=== PATIENT | male | born 1930 | race Caucasian/White ===

== ENCOUNTER → 2016-05-02 | Outpatient (CLI) | payer MEDICARE ==
[~2016-05-02] MED LIST: ASPI81TA28 PO; ATOR10TA88 PO; CHOL1000 PO; DOCU-94 PO; PRED-301 PO; PRT40 PO; SUCR1TAB PO
[2016-05-02 13:37] LABS: BASO % 0.5 %; BASO ABS # 0.03 K/uL (0-0.2); COMPLETE YES; EOS % 3.4 %; HEMATOCRIT 37.7 % (42-52); IG% 0.3 %; LYMPH % 22.2 %; LYMPH ABS # 1.38 K/uL (1.2-3.4); MEAN CELL VOLUME 82.7 fL (80-100); MEAN CORPUSCULAR HEMOGLOBIN 27.6 pg (25-34); MEAN CORPUSCULAR HGB CONC 33.4 g/dl (32-36); MEAN PLATELET VOLUME 10.5 fL (7.4-10.4); MONO % 8.7 %; NEUT % 64.9 %; PLATELET COUNT 231 K/uL (130-400); RED BLOOD COUNT 4.56 M/uL (4.7-6.1); WHITE BLOOD COUNT 6.22 K/uL (4.8-10.8)
[2016-05-02 14:02] LABS: ESTIMATED AVERAGE GLUCOSE 143 mg/dl; HA1C FLAG Normal (Normal)
[2016-05-02 14:06] LABS: ALT/SGPT 27 U/L (12-78); AST/SGOT 21 U/L (15-37); BLOOD UREA NITROGEN 12 mg/dl (7-18); BUN/CREATININE RATIO 9.9 (10-20); CALCIUM 9.5 mg/dl (8.5-10.1); CARBON DIOXIDE 28 mmol/L (21-32); CHLORIDE 108 mmol/L (98-107); GLUCOSE 103 mg/dl (70-99); POTASSIUM 3.9 mmol/L (3.5-5.1); SODIUM 144 mmol/L (136-145)
[2016-05-02 14:15] LABS: ALKALINE PHOSPHATASE 58 U/L (45-117); TOTAL IRON BINDING CAPACITY 302 mcg/dl (250-450)
== END | disposition home or self-care (01) ==
LOC: C.LABBC 10:47
PROVIDERS: ATTEND Family Medicine
DX: I25.10 Atherosclerotic heart disease of native coronary artery without angina pectoris (principal); D64.9 Anemia, unspecified; M85.80 Other specified disorders of bone density and structure, unspecified site; E55.9 Vitamin D deficiency, unspecified; E11.9 Type 2 diabetes mellitus without complications

== ENCOUNTER 2016-05-31 19:43 | Inpatient (IN) | payer MEDICARE, OTHER ==
[~2016-05-31] VITALS: Ht 172.7 cm; Wt 73.6 kg
[2016-05-31] MEDS ORDERED: SODIUM CHLORIDE 0.9% 1000ML 1,000 ML IV STA (20:00)
[2016-05-31] MEDS ORDERED: FAMOTIDINE 20MG/102 ML D5W IV STA (20:00)
[2016-05-31] MEDS ORDERED: ONDANSETRON INJ 2 MG/ML 2 ML VIAL IV STA (20:00)
[2016-05-31] MEDS ORDERED: PANTOprazole INJ 40 MG in SYRINGE 0 ML IV ONE (20:00)
[2016-05-31] MEDS ORDERED: ATOR10TA88 PO (20:15)
[2016-05-31] MEDS ORDERED: CHOL1000 PO (20:15)
[2016-05-31] MEDS ORDERED: DOCU-94 PO (20:15)
[2016-05-31] MEDS ORDERED: PRED-301 PO (20:15)
[2016-05-31] MEDS ORDERED: ASPI81TA28 PO (20:15)
--- NOTE | 2016-05-31 20:23 | EMERGENCY ROOM VISIT NOTE ---
History Report prepared by Maya: Enedelia Nixon Under the Supervision of: Dr. Mateo Padgett D.O. First contact with patient: 19:50 Chief Complaint: VOMITING Stated Complaint: VOMITING, DIZZINESS, DISCOMFORT ABDOMINAL PAIN History of Present Illness The patient is a 85 year old male who presents to the Emergency Room with complaints of persistent vomiting starting this morning. He reports that when he woke up he felt fine. Later in the day he went to the bathroom to have a bowel movement, but started to feel his mouth fill up with saliva. He vomited and felt dizzy as though he would pass out. Afterwards, he started to feel better again. Around 1730, he began to feel dizzy again. He reports that he felt dizzy and like he would pass out whenever he turned his head. He reports feeling fatigued. He vomited again and the vomit was black. Pt reports abdominal pain that feels like gas. He denies headache or dizziness while resting currently. He is on baby aspirin and prednisone. He had diverticulitis which has cleared up. He is borderline diabetic. He seldom drinks alcohol. He admits to smokeless tobacco use. Source of History: patient Onset: this morning Position: other Quality: other (vomiting) Timing: other (persistent) Associated Symptoms: + abdominal pain, + fatigue Note: Pt reports dizziness. Review of Systems See HPI for pertinent positives & negatives. A total of 10 systems reviewed and were otherwise negative. Past Medical & Surgical Medical Problems: (1) Advance care planning (2) Diverticulitis (3) Heart attack (4) PMR (polymyalgia rheumatica) Family History Non contributory secondary to age. Social History Smoking Status: Never Smoker Marital Status: Housing Status: lives with family Occupation Status: retired Current/Historical Medications Scheduled Aspirin (Aspirin Ec), 81 MG PO DAILY Atorvastatin (Lipitor), 10 MG PO HS Cholecalciferol (Vitamin D3), Unknown Dose PO DAILY Docusate Sodium (Colace), 1 CAP PO DAILY Prednisone (Prednisone), 5 MG PO DAILY Allergies Coded Allergies: No Known Allergies (Unverified , 05/31/16) Physical Exam Vital Signs Date Time Temp Pulse Resp B/P Pulse Ox O2 Delivery O2 Flow Rate FiO2 05/31/16 21:11 87 05/31/16 20:59 78 18 107/79 98 Room Air 05/31/16 19:45 36.8 84 20 104/65 94 Room Air Physical Exam GENERAL: Patient is awake, alert, and in no acute distress. Patient is resting comfortably and showing no signs of anxiety EYES: The conjunctivae are clear. The pupils are round and reactive. EARS, NOSE, MOUTH AND THROAT: The nose is without any evidence of any deformity. Mucous membranes are moist tongue is midline NECK: The neck is nontender and supple. RESPIRATORY: Normal respiratory effort is noted there is no evidence of wheezing rhonchi or rales CARDIOVASCULAR: Regular rate and rhythm noted there no murmurs rubs or gallops normal S1 normal S2 GASTROINTESTINAL: The abdomen is mildly distended, but soft. Diffuse tenderness to palpation. No guarding or rigidity. RECTAL: Black stool, strongly heme positive. MUSCULOSKELETAL/EXTREMITIES: There is no evidence of gross deformity full range of motion is noted in the hips and shoulders SKIN: There is no obvious evidence of any rash. There are no petechiae, pallor or cyanosis noted. NEUROLOGIC: Patient is awake alert and oriented x3 Medical Decision & Procedures ER Provider Diagnostic Interpretation: X-ray results as stated below per interpretation by me and the radiologist. Radiology results as stated below per my review and radiologist interpretation: SINGLE VIEW CHEST CLINICAL HISTORY: Dizziness. Generalized abdominal pain. FINDINGS: An AP, portable, upright chest radiograph is obtained. No prior studies are available for comparison at the time of dictation. The examination is degraded by portable technique and apical lordotic positioning. The heart is top normal for projection and there is atherosclerotic calcification of the thoracic aorta. The pulmonary vasculature is noncongested. Nonspecific interstitial thickening is noted. No airspace consolidation or large pleural effusion is identified. No pneumothorax is seen. The skeletal structures are osteopenic. The bony thorax is grossly intact. IMPRESSION: No acute cardiopulmonary abnormality. Electronically signed by: Brandon Bee M.D. 05/31/2016 8:34 PM Dictated Date/Time: 05/31/2016 8:[address] SCAN OF THE ABDOMEN AND PELVIS WITHOUT IV CONTRAST CLINICAL HISTORY: Vomiting. Generalized abdominal pain. Dizziness. COMPARISON STUDY: No priors. TECHNIQUE: CT scan of the abdomen and pelvis is performed from the lung bases to the proximal femora. Images are reviewed in the axial, sagittal, and coronal planes. IV contrast was not administered for this examination as per the referring clinician. Note that the examination was performed in significantly suboptimal examination without oral and IV contrast. Automated dose control exposure was utilized. CT DOSE: 311.46 mGy.cm FINDINGS: Lung bases: The heart is normal in size and without pericardial effusion. The coronary arteries are densely calcified. The lung bases are clear noting dependent atelectasis. A tiny hiatal hernia is noted. Liver: The unenhanced liver is normal in size, contour, and attenuation. There is no intrahepatic biliary ductal dilatation. Gallbladder: Unremarkable. Spleen: Normal in size and attenuation. Pancreas: The pancreas is atrophic. There our numerous parenchyma calcifications consistent with chronic pancreatitis. Adrenal glands: Unremarkable. Kidneys: The unenhanced kidneys are atrophic and without hydronephrosis. There is a 6 mm nonobstructing calculus in the lower pole of the right kidney. No left renal calculi are identified. There is no evidence of contour deforming renal mass lesion. Abdominal vasculature: There is advanced atherosclerotic calcification and ectasia of the abdominal aorta. Bowel: The small bowel and colon are normal in course and caliber. There is mild colonic diverticulosis without CT evidence of acute diverticulitis. The appendix is not identified and reported surgically absent. Peritoneum: There is no intraperitoneal free air or abdominal ascites. Lymphadenopathy: None. Pelvic viscera: The the prostate gland is diminutive versus surgically absent. The bladder is normal as visualized. Skeletal structures: The skeletal structures are osteopenic. There is moderate lumbosacral spondylosis as well as mild scoliosis. A posterior discussed by complex at L4-L5 contributes to acquired compromise of the central canal. No lytic or blastic lesions are seen. IMPRESSION: 1. Significantly suboptimal examination without oral and IV contrast. 2. There are no acute infectious or inflammatory findings in the abdomen or pelvis. 3. Nonobstructing right renal calculus. 4. Mild colonic diverticulosis without CT evidence of acute diverticulitis. 5. Findings are consistent with chronic pancreatitis. 6. Additional changes as above. Electronically signed by: Brandon Bee M.D. 05/31/2016 8:53 PM Dictated Date/Time: 05/31/2016 8:48 PM Laboratory Results Test 05/31/16 20:13 05/31/16 20:26 Prothrombin Time 10.9 SECONDS (9.0-12.0) Prothromb Time International Ratio 1.0 (0.9-1.1) Activated Partial Thromboplast Time 20.6 SECONDS (21.0-31.0) Partial Thromboplastin Ratio 0.8 Total Bilirubin 0.9 mg/dl (0.2-1) Direct Bilirubin 0.2 mg/dl (0-0.2) Aspartate Amino Transf (AST/SGOT) 23 U/L (15-37) Alanine Aminotransferase (ALT/SGPT) 29 U/L (12-78) Alkaline Phosphatase 49 U/L (45-117) Total Creatine Kinase 56 U/L (39-308) Creatine Kinase MB < 0.5 ng/ml (0.5-3.6) Creatine Kinase MB Ratio (0-3.0) Troponin I < 0.015 ng/ml (0-0.045) Total Protein 6.5 gm/dl (6.4-8.2) Albumin 3.3 gm/dl (3.4-5.0) Lipase 101 U/L (73-393) Bedside Hemoglobin 11.2 g/dl (14.0-18.0) Bedside Hematocrit 33 % (42-52) Bedside Sodium 141 mEq/L (135-144) Bedside Potassium 4.5 mEq/L (3.3-5.0) Bedside Chloride 105 mEq/L (101-112) Bedside Total CO2 24 mEq/l (24-31) Bedside Blood Urea Nitrogen 29 mg/dl (7-18) Bedside Creatinine 1.1 mg/dl (0.6-1.3) Bedside Glucose (other) 155 mg/dl (70-99) Bedside Ionized Calcium (Carly) 1.28 mmol/l (1.12-1.32) Laboratory results per my review. Medications Administered Medications (Trade) Dose Ordered Sig/Shiv Route Start Time Stop Time Status Last Admin Dose Admin Sodium Chloride (Nss 1000ml) 1,000 ml @ 999 mls/hr Q1H1M STAT IV 05/31/16 20:00 05/31/16 21:00 DC 05/31/16 20:00 999 MLS/HR Ondansetron HCl 4 mg 4 mg NOW STAT IV 05/31/16 20:00 05/31/16 20:02 DC 05/31/16 20:54 4 MG Pantoprazole Sodium/Syringe (Protonix Inj/ Syringe) 10 ml @ 5 mls/min NOW ONCE IV 05/31/16 20:00 05/31/16 20:02 DC 05/31/16 20:54 5 MLS/MIN Famotidine (Pepcid 20mg/100 ml) 20 mg ONE STAT IV 05/31/16 20:00 05/31/16 20:02 DC 05/31/16 20:54 20 MG ECG Indication: vomiting Rate (beats per minute): 70 Rhythm: normal sinus Findings: no ectopy, other (no acute ST segment abnormalities) ED Course 1952: The patient was evaluated in room B7. A complete history and physical examination were performed. 1999: Famotidine 20 mg IV, Pantoprazole Sodium 40 mg/Syringe 10 ml @ 5 mls/min IV, Zofran Inj 4 mg IV, NSS 1000 ml @ 999 mls/hr IV. 2058: I reevaluated the patient. He is resting comfortably. I discussed results and treatment plan with him. He verbalizes agreement and understanding. The patient will be evaluated for further management and care. 2141: I discussed the patient's case with BELEM Dominguez - hospitalist. The patient will be evaluated for further management. Medical Decision Prior records/ancillary studies reviewed. Triage Nursing notes reviewed. Additional history obtained from the family. The patient's history was concerning for nausea, vomiting, diarrhea, and abdominal pain. Differential diagnosis: Etiologies such as gastroenteritis, food borne illness, infections, appendicitis , diverticulitis, inflammatory bowel disease, obstruction, GI bleed, biliary pathology, as well as others were entertained. The patient is an 85-year-old male who presented to the emergency apartment for an evaluation of nausea and vomiting. The patient had episodes of dark emesis which he thought could be consistent with blood. On rectal exam he had melena. The patient had mild hypotension and was treated with IV fluids in the emergency department. He currently takes steroids daily for chronic medical conditions. The patient was treated with Protonix as well as H2 blockers as well. I discussed the patient's laboratory radiographic studies with him and his family member. I also discussed his case with the on-call [facility] hospitalist group. They've agreed to evaluate the patient in the emergency department for further management and disposition. Consults Time Called: 2104 Consulting Physician: BELEM Dominguez - hospitalist Returned Call: 2141 I discussed the patient's case with him. The patient will be evaluated for further management. Impression Primary Impression: Upper GI bleeding Additional Impression: Nausea & vomiting Scribe Attestation The scribe's documentation has been prepared under my direction and personally reviewed by me in its entirety. I confirm that the note above accurately reflects all work, treatment, procedures, and medical decision making performed by me. Departure Information Dispostion Being Evaluated By Hospitalist Referrals Delfin Armando D.O.Int.Med. (PCP) Patient Instructions [facility] Problem Qualifiers Additional Impression: Nausea & vomiting Vomiting type: hematemesis Qualified Codes: K92.0 - Hematemesis; R11.0 - Nausea
[2016-05-31 20:24] LABS: BASO % 0.3 %; BASO ABS # 0.03 K/uL (0-0.2); COMPLETE YES; EOS % 0.9 %; IG% 0.3 %; LYMPH % 8.7 %; LYMPH ABS # 0.84 K/uL (1.2-3.4); MEAN CELL VOLUME 84.5 fL (80-100); MEAN CORPUSCULAR HEMOGLOBIN 27.8 pg (25-34); MEAN CORPUSCULAR HGB CONC 32.9 g/dl (32-36); MEAN PLATELET VOLUME 10.5 fL (7.4-10.4); MONO % 5.5 %; NEUT % 84.3 %; PLATELET COUNT 190 K/uL (130-400); RED BLOOD COUNT 4.14 M/uL (4.7-6.1)
[2016-05-31 20:35] LABS: PARTIAL THROMBOPLASTIN RATIO 0.8; PROTHROMBIN TIME (PATIENT) 10.9 SECONDS (9.0-12.0)
--- NOTE | 2016-05-31 20:35 | DIAGNOSTIC IMAGING REPORT ---
SINGLE VIEW CHEST CLINICAL HISTORY: Dizziness. Generalized abdominal pain. FINDINGS: An AP, portable, upright chest radiograph is obtained. No prior studies are available for comparison at the time of dictation. The examination is degraded by portable technique and apical lordotic positioning. The heart is top normal for projection and there is atherosclerotic calcification of the thoracic aorta. The pulmonary vasculature is noncongested. Nonspecific interstitial thickening is noted. No airspace consolidation or large pleural effusion is identified. No pneumothorax is seen. The skeletal structures are osteopenic. The bony thorax is grossly intact. IMPRESSION: No acute cardiopulmonary abnormality. Electronically signed by: Brandon Bee M.D. 05/31/2016 8:34 PM Dictated Date/Time: 05/31/2016 8:33 PM
[2016-05-31 20:40] LABS: ISTAT CREATININE 1.1 mg/dl (0.6-1.3); ISTAT HEMOGLOBIN 11.2 g/dl (14.0-18.0); ISTAT IONIZED CALCIUM 1.28 mmol/l (1.12-1.32)
[2016-05-31 20:42] LABS: ALT/SGPT 29 U/L (12-78); BLOOD UREA NITROGEN 31 mg/dl (7-18); BUN/CREATININE RATIO 25.5 (10-20); CALCIUM 9.6 mg/dl (8.5-10.1); CARBON DIOXIDE 26 mmol/L (21-32); CHLORIDE 107 mmol/L (98-107); GLUCOSE 153 mg/dl (70-99); POTASSIUM 4.5 mmol/L (3.5-5.1); SODIUM 143 mmol/L (136-145)
[2016-05-31 20:47] LABS: ALKALINE PHOSPHATASE 49 U/L (45-117); AST/SGOT 23 U/L (15-37)
--- NOTE | 2016-05-31 20:54 | DIAGNOSTIC IMAGING REPORT ---
CT SCAN OF THE ABDOMEN AND PELVIS WITHOUT IV CONTRAST CLINICAL HISTORY: Vomiting. Generalized abdominal pain. Dizziness. COMPARISON STUDY: No priors. TECHNIQUE: CT scan of the abdomen and pelvis is performed from the lung bases to the proximal femora. Images are reviewed in the axial, sagittal, and coronal planes. IV contrast was not administered for this examination as per the referring clinician. Note that the examination was performed in significantly suboptimal examination without oral and IV contrast. Automated dose control exposure was utilized. CT DOSE: 311.46 mGy.cm FINDINGS: Lung bases: The heart is normal in size and without pericardial effusion. The coronary arteries are densely calcified. The lung bases are clear noting dependent atelectasis. A tiny hiatal hernia is noted. Liver: The unenhanced liver is normal in size, contour, and attenuation. There is no intrahepatic biliary ductal dilatation. Gallbladder: Unremarkable. Spleen: Normal in size and attenuation. Pancreas: The pancreas is atrophic. There our numerous parenchyma calcifications consistent with chronic pancreatitis. Adrenal glands: Unremarkable. Kidneys: The unenhanced kidneys are atrophic and without hydronephrosis. There is a 6 mm nonobstructing calculus in the lower pole of the right kidney. No left renal calculi are identified. There is no evidence of contour deforming renal mass lesion. Abdominal vasculature: There is advanced atherosclerotic calcification and ectasia of the abdominal aorta. Bowel: The small bowel and colon are normal in course and caliber. There is mild colonic diverticulosis without CT evidence of acute diverticulitis. The appendix is not identified and reported surgically absent. Peritoneum: There is no intraperitoneal free air or abdominal ascites. Lymphadenopathy: None. Pelvic viscera: The the prostate gland is diminutive versus surgically absent. The bladder is normal as visualized. Skeletal structures: The skeletal structures are osteopenic. There is moderate lumbosacral spondylosis as well as mild scoliosis. A posterior discussed by complex at L4-L5 contributes to acquired compromise of the central canal. No lytic or blastic lesions are seen. IMPRESSION: 1. Significantly suboptimal examination without oral and IV contrast. 2. There are no acute infectious or inflammatory findings in the abdomen or pelvis. 3. Nonobstructing right renal calculus. 4. Mild colonic diverticulosis without CT evidence of acute diverticulitis. 5. Findings are consistent with chronic pancreatitis. 6. Additional changes as above. Electronically signed by: Brandon Bee M.D. 05/31/2016 8:53 PM Dictated Date/Time: 05/31/2016 8:48 PM
--- NOTE | 2016-05-31 22:22 | History and Physical ---
History & Physical Date & Time of Service: May 31, 2016 at 22:22 Chief Complaint: Vomiting, Dizziness, Discomfort Abdominal Pain Primary Care Physician: Delfin Armando D.O.Int.Med. History of Present Illness Source: patient, family The patient is an 85-year-old male who presents to the emergency department with persistent nausea and vomiting that began the morning of admission. He initially felt well when he woke up, but when he went to the bathroom, he felt lightheaded and dizzy like he was going to pass out. He then returned more toward normal, but around 1730 he began to feel dizzy again, fatigued, vomited black vomitus this time, and thus presents to the emergency department for assessment. At this point in time, as long as he stays still, he has no complaints. He has not had any recent travel, any sick exposures, is not taking any new medications. He is on baby aspirin and prednisone daily. Past Medical/Surgical History Medical Problems: (1) Diverticulitis Status: Resolved (2) Heart attack Status: Chronic (3) PMR (polymyalgia rheumatica) Status: Chronic Social History Smoking Status: Never Smoker Smokeless Tobacco Use: No Alcohol Use: none Drug Use: cocaine Marital Status: Housing status: lives with family Occupational Status: retired Multi-Drug Resistant Organisms History of MDRO: No Allergies Coded Allergies: No Known Allergies (Unverified , 05/31/16) Home Medications Scheduled Aspirin (Aspirin Ec), 81 MG PO DAILY Atorvastatin (Lipitor), 10 MG PO HS Cholecalciferol (Vitamin D3), Unknown Dose PO DAILY Docusate Sodium (Colace), 1 CAP PO DAILY Prednisone (Prednisone), 5 MG PO DAILY Review of Systems The patient denies chest pain, palpitations, shortness of breath, cough, lower extremity swelling, vision change, hearing change, sore throat, fevers, chills, sweats, pelvic pain, blood in urine or stool, dysuria, urinary frequency or urgency, headache, memory loss, rash, abnormal bruising imbalance, focal weakness, numbness or tingling in arms or legs, arthralgias or myalgias, back or neck pain, night sweats, or allergy symptoms. The review of systems is otherwise negative other than for that already noted above, and at least 10 systems have been reviewed. Physical Exam Vital Signs Date Time Temp Pulse Resp B/P Pulse Ox O2 Delivery O2 Flow Rate FiO2 05/31/16 21:11 87 05/31/16 20:59 78 18 107/79 98 Room Air 05/31/16 19:45 36.8 84 20 104/65 94 Room Air The patient is awake, well-developed and adequately nourished, alert and oriented 3, normocephalic and atraumatic, lying in bed and in no acute distress. HEENT--PERRL, EOMI, mucous membranes and oropharynx dry. Neck--supple, no JVD or bruits, thyroid normal, trachea midline, no adenopathy. Heart--normal S1 and S2, no extra beats, no murmurs, rubs or gallops. Lungs--clear bilaterally with good air movement, no respiratory distress, no accessory muscle use. Abdomen--normal bowel sounds and soft, mild epigastric tenderness, nondistended , no hernias or masses, no organomegaly. Extremities--no cyanosis, clubbing or edema. There are good distal pulses b/l. Dermatologic--normal skin turgor, normal color, warm and dry, no abnormal lymph nodes, no rash. Neurologic--cranial nerves II through XII grossly intact, motor and sensory examination normal. Rheumatologic--normal range of motion, nontender, muscles and joints for age. Psychiatric--normal affect. Diagnostics Laboratory Results Results Past 24 Hours Test 05/31/16 20:13 05/31/16 20:26 Range/Units White Blood Count 9.70 4.8-10.8 K/uL Red Blood Count 4.14 4.7-6.1 M/uL Hemoglobin 11.5 14.0-18.0 g/dL Hematocrit 35.0 42-52 % Mean Corpuscular Volume 84.5 80-100 fL Mean Corpuscular Hemoglobin 27.8 25-34 pg Mean Corpuscular Hemoglobin Concent 32.9 32-36 g/dl Platelet Count 190 130-400 K/uL Mean Platelet Volume 10.5 7.4-10.4 fL Neutrophils (%) (Auto) 84.3 % Lymphocytes (%) (Auto) 8.7 % Monocytes (%) (Auto) 5.5 % Eosinophils (%) (Auto) 0.9 % Basophils (%) (Auto) 0.3 % Neutrophils # (Auto) 8.18 1.4-6.5 K/uL Lymphocytes # (Auto) 0.84 1.2-3.4 K/uL Monocytes # (Auto) 0.53 0.11-0.59 K/uL Eosinophils # (Auto) 0.09 0-0.5 K/uL Basophils # (Auto) 0.03 0-0.2 K/uL RDW Standard Deviation 46.8 36.4-46.3 fL RDW Coefficient of Variation 15.1 11.5-14.5 % Immature Granulocyte % (Auto) 0.3 % Immature Granulocyte # (Auto) 0.03 0.00-0.02 K/uL Prothrombin Time 10.9 9.0-12.0 SECONDS Prothromb Time International Ratio 1.0 0.9-1.1 Activated Partial Thromboplast Time 20.6 21.0-31.0 SECONDS Partial Thromboplastin Ratio 0.8 Sodium Level 143 136-145 mmol/L Potassium Level 4.5 3.5-5.1 mmol/L Chloride Level 107 98-107 mmol/L Carbon Dioxide Level 26 21-32 mmol/L Anion Gap 10.0 17.0 16-25 mmol/L Blood Urea Nitrogen 31 7-18 mg/dl Creatinine 1.20 0.60-1.40 mg/dl Est Creatinine Clear Calc Drug Dose 43.5 ml/min Estimated GFR () 63.5 Estimated GFR (Non- 54.8 BUN/Creatinine Ratio 25.5 10-20 Random Glucose 153 70-99 mg/dl Calcium Level 9.6 8.5-10.1 mg/dl Total Bilirubin 0.9 0.2-1 mg/dl Direct Bilirubin 0.2 0-0.2 mg/dl Aspartate Amino Transf (AST/SGOT) 23 15-37 U/L Alanine Aminotransferase (ALT/SGPT) 29 12-78 U/L Alkaline Phosphatase 49 45-117 U/L Total Creatine Kinase 56 39-308 U/L Creatine Kinase MB < 0.5 0.5-3.6 ng/ml Creatine Kinase MB Ratio 0-3.0 Troponin I < 0.015 0-0.045 ng/ml Total Protein 6.5 6.4-8.2 gm/dl Albumin 3.3 3.4-5.0 gm/dl Lipase 101 73-393 U/L Bedside Hemoglobin 11.2 14.0-18.0 g/dl Bedside Hematocrit 33 42-52 % Bedside Sodium 141 135-144 mEq/L Bedside Potassium 4.5 3.3-5.0 mEq/L Bedside Chloride 105 101-112 mEq/L Bedside Total CO2 24 24-31 mEq/l Bedside Blood Urea Nitrogen 29 7-18 mg/dl Bedside Creatinine 1.1 0.6-1.3 mg/dl Bedside Glucose (other) 155 70-99 mg/dl Bedside Ionized Calcium (Carly) 1.28 1.12-1.32 mmol/l Diagnostic Radiology CLINICAL HISTORY: Dizziness. Generalized abdominal pain. FINDINGS: An AP, portable, upright chest radiograph is obtained. No prior studies are available for comparison at the time of dictation. The examination is degraded by portable technique and apical lordotic positioning. The heart is top normal for projection and there is atherosclerotic calcification of the thoracic aorta. The pulmonary vasculature is noncongested. Nonspecific interstitial thickening is noted. No airspace consolidation or large pleural effusion is identified. No pneumothorax is seen. The skeletal structures are osteopenic. The bony thorax is grossly intact. IMPRESSION: No acute cardiopulmonary abnormality. Electronically signed by: Brandon Bee M.D. 05/31/2016 8:34 PM Dictated Date/Time: 05/31/2016 8:33 PM The status of this report is Signed. Draft = Not yet reviewed or approved by Radiologist. Signed = Reviewed and [~ rep ct add3]] CT SCAN OF THE ABDOMEN AND PELVIS WITHOUT IV CONTRAST CLINICAL HISTORY: Vomiting. Generalized abdominal pain. Dizziness. COMPARISON STUDY: No priors. TECHNIQUE: CT scan of the abdomen and pelvis is performed from the lung bases to the proximal femora. Images are reviewed in the axial, sagittal, and coronal planes. IV contrast was not administered for this examination as per the referring clinician. Note that the examination was performed in significantly suboptimal examination without oral and IV contrast. Automated dose control exposure was utilized. CT DOSE: 311.46 mGy.cm FINDINGS: Lung bases: The heart is normal in size and without pericardial effusion. The coronary arteries are densely calcified. The lung bases are clear noting dependent atelectasis. A tiny hiatal hernia is noted. Liver: The unenhanced liver is normal in size, contour, and attenuation. There is no intrahepatic biliary ductal dilatation. Gallbladder: Unremarkable. Spleen: Normal in size and attenuation. Pancreas: The pancreas is atrophic. There our numerous parenchyma calcifications consistent with chronic pancreatitis. Adrenal glands: Unremarkable. Kidneys: The unenhanced kidneys are atrophic and without hydronephrosis. There is a 6 mm nonobstructing calculus in the lower pole of the right kidney. No left renal calculi are identified. There is no evidence of contour deforming renal mass lesion. Abdominal vasculature: There is advanced atherosclerotic calcification and ectasia of the abdominal aorta. Bowel: The small bowel and colon are normal in course and caliber. There is mild colonic diverticulosis without CT evidence of acute diverticulitis. The appendix is not identified and reported surgically absent. Peritoneum: There is no intraperitoneal free air or abdominal ascites. Lymphadenopathy: None. Pelvic viscera: The the prostate gland is diminutive versus surgically absent. The bladder is normal as visualized. Skeletal structures: The skeletal structures are osteopenic. There is moderate lumbosacral spondylosis as well as mild scoliosis. A posterior discussed by complex at L4-L5 contributes to acquired compromise of the central canal. No lytic or blastic lesions are seen. IMPRESSION: 1. Significantly suboptimal examination without oral and IV contrast. 2. There are no acute infectious or inflammatory findings in the abdomen or pelvis. 3. Nonobstructing right renal calculus. 4. Mild colonic diverticulosis without CT evidence of acute diverticulitis. 5. Findings are consistent with chronic pancreatitis. 6. Additional changes as above. EKG EKG shows normal sinus rhythm at 70 bpm, there are no acute ST-T changes Impression Assessment and Plan Upper GI bleed/near syncope--the patient will be admitted to the telemetry unit , for serial cardiac enzymes, cardiac rhythm monitoring and a 2-D echocardiogram with Dopplers. He'll be made nothing by mouth. Start Protonix bolus followed by drip. Check H&H every 6 hours for the next 48 hours. Consult gastroenterology for possible EGD. We'll hold aspirin 81 mg by mouth daily and prednisone 5 mg by mouth daily. Place on normal saline with potassium chloride 20 mEq at 100 ML's per hour, and Zofran 4 mg IV every 6 hours when necessary. Hypercholesterolemia--hold atorvastatin 10 mg by mouth at bedtime. Polymyalgia rheumatica--he's been on prednisone 5 mg by mouth daily. He'll need to be on stress dose hydrocortisone IV. Hyperglycemia--place on Accu-Cheks 4 times a day with NovoLog coverage. Level of Care Telemetry Advanced Directives Existing Advance Directive: No Existing Living Will: No Existing Power of Medical Device Assembler: No Resuscitation Status FULL RESUSCITATION VTE Prophylaxis VTE Risk Assessment Done? Y/N: Yes Risk Level: Moderate Given or contraindicated: SCD's Social Service Consult None Apply
[2016-05-31] MEDS ORDERED: ONDANSETRON INJ 2 MG/ML 2 ML VIAL IV PRN (22:45)
[2016-05-31] MEDS ORDERED: ACETAMINOPHEN 325 MG TAB PO PRN (22:45)
[2016-05-31] MEDS ORDERED: PANTOprazole INJ 40 MG in SYRINGE 0 ML IV STA (22:52)
[2016-05-31 23:10] LABS: URINE APPEARANCE CLEAR (CLEAR); URINE BILIRUBIN NEG (NEG); URINE COLOR YELLOW; URINE NITRITE NEG (NEG); URINE PH 5.5 (4.5-7.5); UROBILINOGEN NEG (NEG)
[2016-05-31 23:18] LABS: MANUAL MICROSCOPIC REQUIRED? NO; REVIEW REQ? NO
[2016-05-31] MEDS: PANTOprazole INJ 40 MG in DEXTROSE 5% 100ML IV SCH (23:49)
[2016-05-31 23:50] VITALS: BP 111/67; PULSE 67; TEMP 36.5; O2SAT 98; Ht 172.7 cm; Wt 73.6 kg
[2016-06-01] MEDS: NSS + 20MEQ KCL 1000ML 1,000 ML IV SCH ×2 (00:02→12:30)
[2016-06-01] MEDS: PANTOprazole INJ 40 MG in DEXTROSE 5% 100ML IV SCH ×4 (04:09→19:31)
[2016-06-01] MEDS ORDERED: DEXTROSE 50% 50 ML SYR IV PRN (04:30)
[2016-06-01] MEDS ORDERED: GLUCOSE 40% GEL 15 GM TUBE PO PRN (04:30)
[2016-06-01] MEDS ORDERED: GLUCAGON FOR INJ 1 MG VIAL SQ PRN (04:30)
[2016-06-01] MEDS ORDERED: GLUCOSE 10 TABS/TUBE PO PRN (04:30)
[2016-06-01 04:49] LABS: BASO % 0.4 %; BASO ABS # 0.03 K/uL (0-0.2); COMPLETE YES; EOS % 2.5 %; IG% 0.1 %; LYMPH % 15.6 %; LYMPH ABS # 1.13 K/uL (1.2-3.4); MEAN CELL VOLUME 83.1 fL (80-100); MEAN CORPUSCULAR HEMOGLOBIN 27.2 pg (25-34); MEAN CORPUSCULAR HGB CONC 32.8 g/dl (32-36); MEAN PLATELET VOLUME 9.8 fL (7.4-10.4); MONO % 9.1 %; NEUT % 72.3 %; PLATELET COUNT 137 K/uL (130-400); RED BLOOD COUNT 3.49 M/uL (4.7-6.1); WHITE BLOOD COUNT 7.24 K/uL (4.8-10.8)
[2016-06-01] MEDS: HYDROCORTISONE IV 100 MG in SYRINGE 0 ML IV SCH ×3 (04:50→20:37)
[2016-06-01 05:08] LABS: BUN/CREATININE RATIO 33.5 (10-20); CALCIUM 8.4 mg/dl (8.5-10.1); MAGNESIUM 2.2 mg/dl (1.8-2.4); POTASSIUM 4.9 mmol/L (3.5-5.1)
[2016-06-01 07:21] VITALS: BP 123/64; PULSE 67; TEMP 36.8; O2SAT 98
[2016-06-01] MEDS: INSULIN ASPART 100 UNITS/ML 3 ML PEN SC SCH ×4 (08:58→20:38)
--- NOTE | 2016-06-01 09:02 | Hospitalist Progress Note ---
Hospitalist Progress Note Date of Service Jun 01, 2016. Subjective Pt evaluation today including: conversation w/ patient, chart review Patient with no complaints no more emesis. No abdominal pain All Other Systems: Reviewed and Negative Medications Medications (Trade) Dose Ordered Sig/Shiv Route Start Time Stop Time Status Last Admin Dose Admin Sodium Chloride (Nss 1000ml) 1,000 ml @ 999 mls/hr Q1H1M STAT IV 05/31/16 20:00 05/31/16 21:00 DC 05/31/16 20:00 999 MLS/HR Ondansetron HCl 4 mg 4 mg NOW STAT IV 05/31/16 20:00 05/31/16 20:02 DC 05/31/16 20:54 4 MG Pantoprazole Sodium/Syringe (Protonix Inj/ Syringe) 10 ml @ 5 mls/min NOW ONCE IV 05/31/16 20:00 05/31/16 20:02 DC 05/31/16 20:54 5 MLS/MIN Famotidine 20 mg 20 mg ONE STAT IV 05/31/16 20:00 05/31/16 20:02 DC 05/31/16 20:54 20 MG Potassium Chloride/Sodium Chloride 1,000 ml @ 80 mls/hr [id number] IV 05/31/16 23:59 06/30/16 23:58 06/01/16 00:02 80 MLS/HR Pantoprazole Sodium 40 mg/ Syringe 10 ml @ 5 mls/min NOW STAT IV 05/31/16 22:52 05/31/16 22:53 DC 05/31/16 23:48 5 MLS/MIN Pantoprazole Sodium 40 mg/ Dextrose 100 ml @ 20 mls/hr Q5H IV 05/31/16 23:15 06/30/16 23:14 06/01/16 04:09 20 MLS/HR Hydrocortisone Sodium Succinate/ Syringe (Solu-Cortef IV/ Syringe) 2 ml @ 4 mls/min Q8H IV 06/01/16 04:30 07/01/16 04:29 06/01/16 04:50 4 MLS/MIN Objective Vital Signs Date Time Temp Pulse Resp B/P Pulse Ox O2 Delivery O2 Flow Rate FiO2 06/01/16 07:21 36.8 67 18 123/64 98 Room Air 06/01/16 04:00 Room Air 05/31/16 23:50 36.5 67 16 111/67 98 Room Air 05/31/16 23:02 65 18 103/52 96 Room Air 05/31/16 21:11 87 05/31/16 20:59 78 18 107/79 98 Room Air 05/31/16 19:45 36.8 84 20 104/65 94 Room Air Physical Exam General Appearance: WD/WN Eyes: normal inspection, sclerae normal Neck: supple Respiratory/Chest: lungs clear Cardiovascular: regular rate, rhythm Abdomen: normal bowel sounds Extremities: normal range of motion Neurologic/Psychiatric: alert, normal mood/affect Laboratory Results Last 24 Hours Test 05/31/16 20:13 05/31/16 20:26 05/31/16 22:33 05/31/16 23:00 White Blood Count 9.70 K/uL Red Blood Count 4.14 M/uL Hemoglobin 11.5 g/dL 9.9 g/dL Hematocrit 35.0 % 30.0 % Mean Corpuscular Volume 84.5 fL Mean Corpuscular Hemoglobin 27.8 pg Mean Corpuscular Hemoglobin Concent 32.9 g/dl Platelet Count 190 K/uL Mean Platelet Volume 10.5 fL Neutrophils (%) (Auto) 84.3 % Lymphocytes (%) (Auto) 8.7 % Monocytes (%) (Auto) 5.5 % Eosinophils (%) (Auto) 0.9 % Basophils (%) (Auto) 0.3 % Neutrophils # (Auto) 8.18 K/uL Lymphocytes # (Auto) 0.84 K/uL Monocytes # (Auto) 0.53 K/uL Eosinophils # (Auto) 0.09 K/uL Basophils # (Auto) 0.03 K/uL RDW Standard Deviation 46.8 fL RDW Coefficient of Variation 15.1 % Immature Granulocyte % (Auto) 0.3 % Immature Granulocyte # (Auto) 0.03 K/uL Prothrombin Time 10.9 SECONDS Prothromb Time International Ratio 1.0 Activated Partial Thromboplast Time 20.6 SECONDS Partial Thromboplastin Ratio 0.8 Sodium Level 143 mmol/L Potassium Level 4.5 mmol/L Chloride Level 107 mmol/L Carbon Dioxide Level 26 mmol/L Anion Gap 10.0 mmol/L 17.0 mmol/L Blood Urea Nitrogen 31 mg/dl Creatinine 1.20 mg/dl Est Creatinine Clear Calc Drug Dose 43.5 ml/min Estimated GFR () 63.5 Estimated GFR (Non- 54.8 BUN/Creatinine Ratio 25.5 Random Glucose 153 mg/dl Calcium Level 9.6 mg/dl Total Bilirubin 0.9 mg/dl Direct Bilirubin 0.2 mg/dl Aspartate Amino Transf (AST/SGOT) 23 U/L Alanine Aminotransferase (ALT/SGPT) 29 U/L Alkaline Phosphatase 49 U/L Total Creatine Kinase 56 U/L Creatine Kinase MB < 0.5 ng/ml Creatine Kinase MB Ratio Troponin I < 0.015 ng/ml Total Protein 6.5 gm/dl Albumin 3.3 gm/dl Lipase 101 U/L Bedside Hemoglobin 11.2 g/dl Bedside Hematocrit 33 % Bedside Sodium 141 mEq/L Bedside Potassium 4.5 mEq/L Bedside Chloride 105 mEq/L Bedside Total CO2 24 mEq/l Bedside Blood Urea Nitrogen 29 mg/dl Bedside Creatinine 1.1 mg/dl Bedside Glucose (other) 155 mg/dl Bedside Ionized Calcium (Carly) 1.28 mmol/l Urine Color YELLOW Urine Appearance CLEAR Urine pH 5.5 Urine Specific [place] 1.020 Urine Protein NEG Urine Glucose (UA) NEG Urine Ketones TRACE Urine Occult Blood NEG Urine Nitrite NEG Urine Bilirubin NEG Urine Urobilinogen NEG Urine Leukocyte Esterase TRACE Urine WBC (Auto) 1-5 /hpf Urine RBC (Auto) 0-4 /hpf Urine Hyaline Casts (Auto) 1-5 /lpf Urine Epithelial Cells (Auto) 10-20 /lpf Urine Bacteria (Auto) NEG Test 06/01/16 04:30 White Blood Count 7.24 K/uL Red Blood Count 3.49 M/uL Hemoglobin 9.5 g/dL Hematocrit 29.0 % Mean Corpuscular Volume 83.1 fL Mean Corpuscular Hemoglobin 27.2 pg Mean Corpuscular Hemoglobin Concent 32.8 g/dl Platelet Count 137 K/uL Mean Platelet Volume 9.8 fL Neutrophils (%) (Auto) 72.3 % Lymphocytes (%) (Auto) 15.6 % Monocytes (%) (Auto) 9.1 % Eosinophils (%) (Auto) 2.5 % Basophils (%) (Auto) 0.4 % Neutrophils # (Auto) 5.23 K/uL Lymphocytes # (Auto) 1.13 K/uL Monocytes # (Auto) 0.66 K/uL Eosinophils # (Auto) 0.18 K/uL Basophils # (Auto) 0.03 K/uL RDW Standard Deviation 46.4 fL RDW Coefficient of Variation 15.3 % Immature Granulocyte % (Auto) 0.1 % Immature Granulocyte # (Auto) 0.01 K/uL Sodium Level 147 mmol/L Potassium Level 4.9 mmol/L Chloride Level 114 mmol/L Carbon Dioxide Level 30 mmol/L Anion Gap 3.0 mmol/L Blood Urea Nitrogen 33 mg/dl Creatinine 1.00 mg/dl Est Creatinine Clear Calc Drug Dose 52.2 ml/min Estimated GFR () 79.2 Estimated GFR (Non- 68.3 BUN/Creatinine Ratio 33.5 Random Glucose 98 mg/dl Calcium Level 8.4 mg/dl Magnesium Level 2.2 mg/dl Assessment and Plan (1) Upper GI bleeding Assessment & Plan: Patient with black emesis prior to admission on aspirin and prednisone....suspect ulcer versus gastritis. Will consult GI for upper Endoscopy. continue protonix and holding aspirin (2) Nausea & vomiting Assessment & Plan: resolved npo (3) PMR (polymyalgia rheumatica) Assessment & Plan: was on prednisone on stress dose steroids now. (4) Advance care planning Assessment & Plan: discussed in detail. Patient has a living will in a safe, but he does not know what he would want if his heart were to stop. I have explained that he should think about where he would draw his lines personally if he were to , or if were unable to speak because of a medical illness. He can currently provide this direction to his family and the healthcare team. When he knows the answers to the questions he should fill out a new living will and discuss this document with his primary care physician and his family.
--- NOTE | 2016-06-01 10:18 | Gastrointestinal Consultation ---
Gastrointestinal Consultation Date of Consultation: Jun 01, 2016 Attending Physician: Gera Consulting Physician: Bharat Reason for Consultation: GI bleed History of Present Illness Patient is a 85 year old male who went out to shop yesterday morning and feeling well. All of a sudden felt queasy in his belly and then threw up relatively violently, orange juice and eggs he had that morning. Later he ate some bananas, milk and sugar and then threw up again coffee grounds. [place] sweaty and light headed. No chest pain. Son brought him to the ER. No such issues in the past. Remote OH and has been on aspirin 81 mg. Past Medical/Surgical History Medical Problems: (1) Nausea & vomiting Status: Acute (2) Upper GI bleeding Status: Acute Past Medical History: (1) Diverticulitis Status: Resolved (2) Heart attack Status: Chronic (3) PMR (polymyalgia rheumatica) Status: Chronic Social History Smoking Status: Never Smoker (But snuffs 2-3 times a day) Alcohol Use: none ( except in the past when had a few beers every weekend.) Drug Use: cocaine Marital Status: Housing Status: lives with family Occupation Status: retired Allergies Coded Allergies: No Known Allergies (Unverified , 05/31/16) Current Medications Home Meds and Scripts Medications Dose Route/Sig Max Daily Dose Days Date Category Vitamin D3 (Cholecalciferol) Unknown Strength Tab Unknown Dose PO DAILY 90 05/31/16 Reported Colace (Docusate Sodium) 100 Mg Cap 1 Cap PO DAILY 30 05/31/16 Reported Aspirin Ec (Aspirin) 81 Mg Tab 81 Mg PO DAILY 05/31/16 Reported Lipitor (Atorvastatin Calcium) 10 Mg Tab 10 Mg PO HS 05/31/16 Reported Prednisone 5 Mg Tab 5 Mg PO DAILY 05/31/16 Reported Review of Systems Constitutional: No fever ENT: No trouble swallowing Cardiac: No chest pain, No palpitations Abdomen: + GI bleeding, + vomiting, No constipation, No pain Neuro: + weakness ( generalized, yesterday after throwing up) Psych: No substance abuse Physical Exam Date Time Temp Pulse Resp B/P Pulse Ox O2 Delivery O2 Flow Rate FiO2 06/01/16 08:00 Room Air 06/01/16 07:21 36.8 67 18 123/64 98 Room Air 06/01/16 04:00 Room Air 05/31/16 23:50 36.5 67 16 111/67 98 Room Air 05/31/16 23:02 65 18 103/52 96 Room Air 05/31/16 21:11 87 05/31/16 20:59 78 18 107/79 98 Room Air 05/31/16 19:45 36.8 84 20 104/65 94 Room Air General Appearance: no apparent distress Eyes: normal inspection Neck: supple, no JVD Respiratory/Chest: chest non-tender, lungs clear, normal breath sounds Cardiovascular: regular rate, rhythm, + systolic murmur Abdomen: non tender, soft, no organomegaly, no pulsatile mass Extremities: normal inspection, no pedal edema Neurologic/Psych: alert, normal mood/affect, oriented x 3 Skin: normal color, no jaundice, warm/dry, no rash Laboratory Results Last 24 Hours Test 05/31/16 20:13 05/31/16 20:26 05/31/16 22:33 05/31/16 23:00 White Blood Count 9.70 K/uL Red Blood Count 4.14 M/uL Hemoglobin 11.5 g/dL 9.9 g/dL Hematocrit 35.0 % 30.0 % Mean Corpuscular Volume 84.5 fL Mean Corpuscular Hemoglobin 27.8 pg Mean Corpuscular Hemoglobin Concent 32.9 g/dl Platelet Count 190 K/uL Mean Platelet Volume 10.5 fL Neutrophils (%) (Auto) 84.3 % Lymphocytes (%) (Auto) 8.7 % Monocytes (%) (Auto) 5.5 % Eosinophils (%) (Auto) 0.9 % Basophils (%) (Auto) 0.3 % Neutrophils # (Auto) 8.18 K/uL Lymphocytes # (Auto) 0.84 K/uL Monocytes # (Auto) 0.53 K/uL Eosinophils # (Auto) 0.09 K/uL Basophils # (Auto) 0.03 K/uL RDW Standard Deviation 46.8 fL RDW Coefficient of Variation 15.1 % Immature Granulocyte % (Auto) 0.3 % Immature Granulocyte # (Auto) 0.03 K/uL Prothrombin Time 10.9 SECONDS Prothromb Time International Ratio 1.0 Activated Partial Thromboplast Time 20.6 SECONDS Partial Thromboplastin Ratio 0.8 Sodium Level 143 mmol/L Potassium Level 4.5 mmol/L Chloride Level 107 mmol/L Carbon Dioxide Level 26 mmol/L Anion Gap 10.0 mmol/L 17.0 mmol/L Blood Urea Nitrogen 31 mg/dl Creatinine 1.20 mg/dl Est Creatinine Clear Calc Drug Dose 43.5 ml/min Estimated GFR () 63.5 Estimated GFR (Non- 54.8 BUN/Creatinine Ratio 25.5 Random Glucose 153 mg/dl Calcium Level 9.6 mg/dl Total Bilirubin 0.9 mg/dl Direct Bilirubin 0.2 mg/dl Aspartate Amino Transf (AST/SGOT) 23 U/L Alanine Aminotransferase (ALT/SGPT) 29 U/L Alkaline Phosphatase 49 U/L Total Creatine Kinase 56 U/L Creatine Kinase MB < 0.5 ng/ml Creatine Kinase MB Ratio Troponin I < 0.015 ng/ml Total Protein 6.5 gm/dl Albumin 3.3 gm/dl Lipase 101 U/L Bedside Hemoglobin 11.2 g/dl Bedside Hematocrit 33 % Bedside Sodium 141 mEq/L Bedside Potassium 4.5 mEq/L Bedside Chloride 105 mEq/L Bedside Total CO2 24 mEq/l Bedside Blood Urea Nitrogen 29 mg/dl Bedside Creatinine 1.1 mg/dl Bedside Glucose (other) 155 mg/dl Bedside Ionized Calcium (Carly) 1.28 mmol/l Urine Color YELLOW Urine Appearance CLEAR Urine pH 5.5 Urine Specific [place] 1.020 Urine Protein NEG Urine Glucose (UA) NEG Urine Ketones TRACE Urine Occult Blood NEG Urine Nitrite NEG Urine Bilirubin NEG Urine Urobilinogen NEG Urine Leukocyte Esterase TRACE Urine WBC (Auto) 1-5 /hpf Urine RBC (Auto) 0-4 /hpf Urine Hyaline Casts (Auto) 1-5 /lpf Urine Epithelial Cells (Auto) 10-20 /lpf Urine Bacteria (Auto) NEG Test 06/01/16 04:30 06/01/16 08:58 White Blood Count 7.24 K/uL Red Blood Count 3.49 M/uL Hemoglobin 9.5 g/dL Hematocrit 29.0 % Mean Corpuscular Volume 83.1 fL Mean Corpuscular Hemoglobin 27.2 pg Mean Corpuscular Hemoglobin Concent 32.8 g/dl Platelet Count 137 K/uL Mean Platelet Volume 9.8 fL Neutrophils (%) (Auto) 72.3 % Lymphocytes (%) (Auto) 15.6 % Monocytes (%) (Auto) 9.1 % Eosinophils (%) (Auto) 2.5 % Basophils (%) (Auto) 0.4 % Neutrophils # (Auto) 5.23 K/uL Lymphocytes # (Auto) 1.13 K/uL Monocytes # (Auto) 0.66 K/uL Eosinophils # (Auto) 0.18 K/uL Basophils # (Auto) 0.03 K/uL RDW Standard Deviation 46.4 fL RDW Coefficient of Variation 15.3 % Immature Granulocyte % (Auto) 0.1 % Immature Granulocyte # (Auto) 0.01 K/uL Sodium Level 147 mmol/L Potassium Level 4.9 mmol/L Chloride Level 114 mmol/L Carbon Dioxide Level 30 mmol/L Anion Gap 3.0 mmol/L Blood Urea Nitrogen 33 mg/dl Creatinine 1.00 mg/dl Est Creatinine Clear Calc Drug Dose 52.2 ml/min Estimated GFR () 79.2 Estimated GFR (Non- 68.3 BUN/Creatinine Ratio 33.5 Random Glucose 98 mg/dl Calcium Level 8.4 mg/dl Magnesium Level 2.2 mg/dl Bedside Glucose 120 mg/dl Impression 1) Patient is a 85 year old male with a self limited UGI bleed, evidenced by coffee ground emesis, high BUN abd drop in Hct. No melena. No more episodes since admission yesterday. This is likely a Cecile Dennis tear given the time course. No evidence of chronic blood loss given normal MCV. 2) Evidence of chronic pancreatitis by CT. No imaging to compare. Asymptomatic att his time. No action needed unless symptomatic Plan Agree with holding aspirin Ok to give clears and keep NPO after midnight for EGD tomorrow. After risk stratification he could the discharged with a plan made for restarting aspirin. He has had an OH in the remote past. Note and record color of stools. I have instructed the patient to check his stools also. Check Hb later today, transfuse if counts drop below 8.00 If there is evidence of more bleeding, we will scope on an emergent basis today.
[2016-06-01 11:08] LABS: HEMATOCRIT 28.8 % (42-52)
[2016-06-01 11:48] VITALS: BP 125/78; PULSE 77; TEMP 37; O2SAT 100
[2016-06-01 14:40] LABS: HEMATOCRIT 28.2 % (42-52)
[2016-06-01 15:26] VITALS: BP 150/83; PULSE 69; TEMP 36.6; O2SAT 97
[2016-06-01 16:38] LABS: HEMATOCRIT 29.6 % (42-52)
[2016-06-01 20:22] VITALS: BP 147/79; PULSE 74; TEMP 36.7; O2SAT 97
[2016-06-01 22:34] LABS: HEMATOCRIT 26.8 % (42-52)
[2016-06-01 23:02] VITALS: BP 151/81; PULSE 67; TEMP 36.5; O2SAT 95
[2016-06-02] VITALS (9 sets, daily range): BP systolic 107–148; BP diastolic 68–78; PULSE 56–79; TEMP 36.3–36.8; O2SAT 95–97
[2016-06-02] MEDS: NSS + 20MEQ KCL 1000ML 1,000 ML IV SCH ×2 (00:07→12:39)
[2016-06-02] MEDS: PANTOprazole INJ 40 MG in DEXTROSE 5% 100ML IV SCH ×5 (00:07→20:15)
[2016-06-02] MEDS: HYDROCORTISONE IV 100 MG in SYRINGE 0 ML IV SCH ×3 (04:55→20:15)
[2016-06-02 04:57] LABS: BASO % 0.1 %; BASO ABS # 0.01 K/uL (0-0.2); EOS % 0.1 %; HEMATOCRIT 26.3 % (42-52); IG% 0.2 %; LYMPH % 10.2 %; LYMPH ABS # 0.87 K/uL (1.2-3.4); MEAN CELL VOLUME 81.7 fL (80-100); MEAN CORPUSCULAR HGB CONC 33.1 g/dl (32-36); MEAN PLATELET VOLUME 9.8 fL (7.4-10.4); MONO % 5.5 %; NEUT % 83.9 %; PLATELET COUNT 133 K/uL (130-400); RED BLOOD COUNT 3.22 M/uL (4.7-6.1); WHITE BLOOD COUNT 8.57 K/uL (4.8-10.8)
[2016-06-02 05:26] LABS: COMPLETE YES; OVALOCYTES 1+
[2016-06-02 05:31] LABS: MAGNESIUM 2.2 mg/dl (1.8-2.4); POTASSIUM 4.4 mmol/L (3.5-5.1)
[2016-06-02] MEDS: INSULIN ASPART 100 UNITS/ML 3 ML PEN SC SCH ×4 (07:48→21:00)
--- NOTE | 2016-06-02 11:26 | Progress Note ---
Subjective Date of Service: Jun 02, 2016. Subjective Pt evaluation today including: conversation w/ patient, conversation w/ family , physical exam, chart review, lab review, review of studies, conversation w/ benefits consultant, review of inpatient medication list Voiding: no voiding problems No more emesis, no abdominal pain,there was some black stool tarry stool, normal stool now Problem List Medical Problems: (1) Nausea & vomiting Status: Acute (2) Upper GI bleeding Status: Acute Review of Systems Constitutional: + fatigue, No chills, No fever, No problem reported, No sweats , No weakness, No weight loss Eyes: No diplopia, No discharge, No eye pain, No redness, No worsening of vision ENT: No dental problems, No hearing loss, No nasal symptoms, No sore throat, No tinnitus, No trouble swallowing, No unusual epistaxis Respiratory: No cough, No dyspnea at rest, No dyspnea on exertion, No hemoptysis, No shortness of breath, No sputum, No wheezing Cardiac: No PND, No chest pain, No claudication, No edema, No orthopnea, No palpitations Abdomen: No constipation, No diarrhea, No nausea, No pain, No vomiting Musculoskeletal: No calf pain, No joint pain, No muscle pain, No swelling Male : No dysuria, No hematuria, No incontinence, No nocturia more than once/ night, No slowing stream, No urinary frequency Neurologic: No balance problems, No memory loss, No numbness/tingling, No paralysis, No vertigo, No weakness Psychiatric: No anhedonism, No anxiety, No depression symptoms, No insomnia, No substance abuse Heme: No abnormal bleeding/bruising, No clotting problems, No night sweats, No swollen lymph nodes Endo: No excessive thirst, No excessive urination, No fatigue Skin: No bleeding, No color change, No itch, No new/changing skin lesions, No rash Objective Vital Signs Date Time Temp Pulse Resp B/P Pulse Ox O2 Delivery O2 Flow Rate FiO2 06/02/16 08:00 95 Room Air 06/02/16 07:46 36.6 64 18 131/72 95 Room Air 06/02/16 04:45 36.8 62 18 107/68 97 06/02/16 04:00 Room Air 06/02/16 00:00 Room Air 06/01/16 23:02 36.5 67 18 151/81 95 Room Air 06/01/16 20:22 36.7 74 18 147/79 97 Room Air 06/01/16 20:00 Room Air 06/01/16 16:00 Room Air 06/01/16 15:26 36.6 69 16 150/83 97 Room Air 06/01/16 12:00 Room Air 06/01/16 11:48 37.0 77 18 125/78 100 Room Air Physical Exam General Appearance: WD/WN, no apparent distress, + pertinent finding (frail) Eyes: normal inspection, PERRL, EOMI, sclerae normal ENT: normal ENT inspection, hearing grossly normal, pharynx normal Neck: supple, no adenopathy, thyroid normal, no JVD, no carotid bruits, trachea midline Respiratory/Chest: chest non-tender, lungs clear, normal breath sounds, no respiratory distress, no accessory muscle use Cardiovascular: regular rate, rhythm, no edema, no gallop, no JVD, no murmur, + systolic murmur (3 out of 6) Abdomen: normal bowel sounds, non tender, soft, no organomegaly, no pulsatile mass Extremities: normal range of motion, non-tender, normal inspection, no pedal edema, no calf tenderness, normal capillary refill, pelvis stable 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, no motor/sensory deficits, alert, normal mood/affect, oriented x 3, + abnormal cerebellar tests Skin: normal color, warm/dry, no rash Lymphatic: no adenopathy Laboratory Results Last 24 Hours Test 06/01/16 11:39 06/01/16 14:23 06/01/16 16:29 06/01/16 16:39 Bedside Glucose 166 mg/dl 111 mg/dl Hemoglobin 9.5 g/dL 9.8 g/dL Hematocrit 28.2 % 29.6 % Test 06/01/16 20:32 06/01/16 22:26 06/02/16 04:45 06/02/16 07:26 Bedside Glucose 105 mg/dl 117 mg/dl Hemoglobin 9.2 g/dL 8.7 g/dL Hematocrit 26.8 % 26.3 % White Blood Count 8.57 K/uL Red Blood Count 3.22 M/uL Mean Corpuscular Volume 81.7 fL Mean Corpuscular Hemoglobin 27.0 pg Mean Corpuscular Hemoglobin Concent 33.1 g/dl Platelet Count 133 K/uL Mean Platelet Volume 9.8 fL Neutrophils (%) (Auto) 83.9 % Lymphocytes (%) (Auto) 10.2 % Monocytes (%) (Auto) 5.5 % Eosinophils (%) (Auto) 0.1 % Basophils (%) (Auto) 0.1 % Neutrophils # (Auto) 7.19 K/uL Lymphocytes # (Auto) 0.87 K/uL Monocytes # (Auto) 0.47 K/uL Eosinophils # (Auto) 0.01 K/uL Basophils # (Auto) 0.01 K/uL RDW Standard Deviation 45.1 fL RDW Coefficient of Variation 15.1 % Immature Granulocyte % (Auto) 0.2 % Immature Granulocyte # (Auto) 0.02 K/uL Ovalocytes 1+ Sodium Level 148 mmol/L Potassium Level 4.4 mmol/L Chloride Level 116 mmol/L Carbon Dioxide Level 25 mmol/L Anion Gap 7.0 mmol/L Blood Urea Nitrogen 19 mg/dl Creatinine 1.00 mg/dl Est Creatinine Clear Calc Drug Dose 52.2 ml/min Estimated GFR () 79.2 Estimated GFR (Non- 68.3 BUN/Creatinine Ratio 19.0 Random Glucose 121 mg/dl Calcium Level 8.0 mg/dl Magnesium Level 2.2 mg/dl Test 06/02/16 10:39 Assessment and Plan (1) Upper GI bleeding (2) Nausea & vomiting (3) PMR (polymyalgia rheumatica) (4) Advance care planning 85-year-old white male admitted because of Upper GI bleed/near syncope on 2016 Upper GI bleed/near syncope, Associated with dizziness, black stool No more dizziness or black stool Not really up and walk yet Hemoglobin minimal decreased from 9.2-8.7 Continue nothing by mouth, IV fluid Follow-up [facility] GI plan EGD this afternoon Heart murmur is not new I told him to follow-up with PCP Mild hypernatremia, change IV fluid to half NSS Hypercholesterolemia- Polymyalgia rheumatica Hyperglycemia The above condition is stable and continue current care Continue on Accu-Cheks 4 times a day with NovoLog coverage. GI prophylaxis on Protonix DVT prophylaxis, heparin per duct is contraindicated because of GI bleeding Continued [facility] stay due to: multiple IV medications needed Discharge planning: home
[2016-06-02 11:39] LABS: HEMATOCRIT 26.8 % (42-52)
[2016-06-02] MEDS ORDERED: PROPOFOL IV EMULSION 10 MG/ML 20 ML VIAL IV ONE (13:57)
[2016-06-02] MEDS ORDERED: LIDOCAINE HCL 2% 2 ML VIAL (20MG/ML) ONE (13:58)
[2016-06-02] MEDS ORDERED: ONDANSETRON INJ 2 MG/ML 2 ML VIAL ONE (13:58)
--- NOTE | 2016-06-02 14:19 | Endo History and Physical ---
History & Physical Date of Service: Jun 02, 2016. Chief Complaint: Hematemesis Referring Physician: Dr Armando History of Present Illness For EGD Past Surgical History Hx Cardiac Surgery: No Hx Abdominal Surgery: No Hx Post-Op Nausea and Vomiting: No Hx Cancer Surgery: No Hx Thoracic Surgery: No Hx Orthopedic: No Hx Urinary Tract Surgery: No Social History Smoking Status: Never Smoker Smokeless Tobacco Use: No Hx Substance Use: No Hx Alcohol Use: No Allergies Coded Allergies: No Known Allergies (Unverified , 06/02/16) Current Medications Reported Home Medications Medications Dose Route/Sig Max Daily Dose Days Date Category Vitamin D3 (Cholecalciferol) Unknown Strength Tab Unknown Dose PO DAILY 90 05/31/16 Reported Colace (Docusate Sodium) 100 Mg Cap 1 Cap PO DAILY 30 05/31/16 Reported Aspirin Ec (Aspirin) 81 Mg Tab 81 Mg PO DAILY 05/31/16 Reported Lipitor (Atorvastatin Calcium) 10 Mg Tab 10 Mg PO HS 05/31/16 Reported Prednisone 5 Mg Tab 5 Mg PO DAILY 05/31/16 Reported Vital Signs Weight (Kilograms): 71.800 Height (Feet): 5 Height (Inches): 8.00 Date Time Temp Pulse Resp B/P Pulse Ox O2 Delivery O2 Flow Rate FiO2 06/02/16 13:32 36.9 62 18 132/70 96 Room Air 06/02/16 12:58 36.6 59 18 135/74 97 Room Air 06/02/16 12:00 97 Room Air 06/02/16 11:25 36.6 59 18 135/74 97 06/02/16 08:00 95 Room Air 06/02/16 07:46 36.6 64 18 131/72 95 Room Air 06/02/16 04:45 36.8 62 18 107/68 97 06/02/16 04:00 Room Air 06/02/16 00:00 Room Air 06/01/16 23:02 36.5 67 18 151/81 95 Room Air 06/01/16 20:22 36.7 74 18 147/79 97 Room Air 06/01/16 20:00 Room Air 06/01/16 16:00 Room Air 06/01/16 15:26 36.6 69 16 150/83 97 Room Air Physical Exam General Appearance: WD/WN, + pertinent finding (Hard of hearing) Respiratory/Chest: Respiratory effort: no dyspnea Cardiovascular: Heart Auscultation: RRR Abdomen: Inspection & Palpation: soft Assessment and Plan Hematemesis for EGD
--- NOTE | 2016-06-02 14:30 | Discharge Instructions ---
Endoscopy Patient Instructions Date / Procedure(s) Performed Jun 02, 2016. EGD Allergy Information Coded Allergies: No Known Allergies (Unverified , 06/02/16) Discharge Date / Findings Jun 02, 2016. MW tear Medication Instructions Restart Stopped Medication(s): resume meds Current Inpatient Medications Medications (Trade) Dose Ordered Sig/Shiv Route Start Time Stop Time Status Last Admin Dose Admin Potassium Chloride/Sodium Chloride (Nss + 20meq KCl 1000ml) 1,000 ml @ 80 mls/hr [id number] IV 05/31/16 23:59 06/30/16 23:58 06/02/16 12:39 80 MLS/HR Acetaminophen (Tylenol Tab) 650 mg Q4H PRN PO 05/31/16 22:45 06/30/16 22:44 Ondansetron HCl 4 mg 4 mg Q6H PRN IV 05/31/16 22:45 06/30/16 22:44 Pantoprazole Sodium 40 mg/ Dextrose 100 ml @ 20 mls/hr Q5H IV 05/31/16 23:15 06/30/16 23:14 06/02/16 10:46 20 MLS/HR Hydrocortisone Sodium Succinate/ Syringe (Solu-Cortef IV/ Syringe) 2 ml @ 4 mls/min Q8H IV 06/01/16 04:30 07/01/16 04:29 06/02/16 12:39 4 MLS/MIN Insulin Aspart (novoLOG ASPART) SLIDING SCALE If C... ACHS SC 06/01/16 06:30 07/01/16 06:29 06/01/16 17:47 3 UNITS Glucose (Glucose 40% Gel) UD PRN PO 06/01/16 04:30 07/01/16 04:29 Glucose (Glucose Chew Tab) 1 tabs UD PRN PO 06/01/16 04:30 07/01/16 04:29 Dextrose (Dextrose 50% 50ML Syringe) 50 ml UD PRN IV 06/01/16 04:30 07/01/16 04:29 Glucagon (Glucagon Inj) 1 mg UD PRN SQ 06/01/16 04:30 07/01/16 04:29 Provider Instructions Activity Restrictions - No exercising or heavy lifting for 24 hours. - Do not drink alcohol the day of the procedure. - Do not drive a car or operate machinery until the day after the procedure. - Do not make any important decisions or sign important papers in 24 hours after the procedure. Following Day: - Return to full activity which may include returning to work/school. Diet Start your diet with liquids and light foods (jello, soup, juice, toast). Then eat your usual diet if not nauseated. Treatment For Common After Affects For mild abdominal pain, bloating, or excessive gas: - Rest - Eat lightly - Lie on right side Follow-Up Information Follow-up with as scheduled Anesthesia Information What You Should Know You have had a procedure that required some medicine to reduce anxiety and discomfort. This treatment is called moderate sedation. After receiving the treatment, you may be sleepy, but you will be able to breathe on your own. The effects of the treatment may last for several hours. Follow these instructions along with Activity/Diet recommendations noted above: * Do NOT do anything where dizziness or clumsiness would be dangerous. * Rest quietly at home today, then you can be up and about tomorrow. * Have a responsible person stay with you the rest of today. * You may have had an I.V. today. If so, you may take the dressing off later today. Recommendations Call your doctor if: * Trouble breathing * Continuous vomiting for more than 24 hours * Temperature above 101 degrees * Severe abdominal pain or bloating * Pain not relieved by pain medicine ordered * There is increased drainage or redness from any incision * A large amount of rectal bleeding greater than 2-3 tablespoons. (If you had a polyp/s removed or have hemorrhoids, a small amount of blood - from the rectum is to be expected.) * You have any unanswered questions or concerns. IN THE EVENT OF A SERIOUS EMERGENCY, GO TO THE NEAREST EMERGENCY ROOM Your discharge instructions were prepared by provider Abner Bryan. Patient Instructions Signature Page Toñito Ham Patient (or Guardian) Signature/Date: I have read and understand the instructions given to me by my caregivers. Caregiver/RN/Doctor Signature/Date: The above-named patient and/or guardian has received patient instructions on this date. + Original Patient Signature Page (only) stays with chart. Please make copy for patient.
--- NOTE | 2016-06-02 14:35 | GI REPORT ---
Procedure Date: 06/02/2016 1:56 PM Procedure: Upper GI endoscopy Indications: Hematemesis Medicines: Zofran 4 mg IV, Propofol total dose 90 mg IV, Lidocaine 60 mg IV Complications: No immediate complications. Estimated Blood Loss: Estimated blood loss: none. Procedure: Pre-Anesthesia Assessment: - Prior to the procedure, a History and Physical was performed, and patient medications, allergies and sensitivities were reviewed. The patient's tolerance of previous anesthesia was reviewed. - The risks and benefits of the procedure and the sedation options and risks were discussed with the patient. All questions were answered and informed consent was obtained. After obtaining informed consent, the endoscope was passed under direct vision. Throughout the procedure, the patient's blood pressure, pulse, and oxygen saturations were monitored continuously. The scope was introduced through the mouth, and advanced to the second part of duodenum. The upper GI endoscopy was accomplished without difficulty. The patient tolerated the procedure well. Findings: A medium non-bleeding Cecile-Dennis tear with no stigmata of recent bleeding was found. Diffuse mildly erythematous mucosa without bleeding consistent with congestive gastropathy was found in the gastric body. The examined duodenum was normal. Impression: - Cecile-Dennis tear. - Erythematous mucosa in the gastric body. - Normal examined duodenum. - No specimens collected. Recommendation: - Return patient to [facility] for [facility] care. - Continue present medications. - Use sucralfate tablets 1 gram PO BID for 2 weeks. Abner Bryan M.D. Abner Bryan MD 06/02/2016 2:35:52 PM This report has been signed electronically. Note Initiated On: 06/02/2016 1:56 PM I attest to the content of the Intraoperative Record and orders documented therein, exceptions below
--- NOTE | 2016-06-02 14:48 | GASTROENTEROLOGY PROGRESS NOTE ---
DATE: 06/02/2016 DATE: 06/02/2016. SUBJECTIVE: The patient had an episode of hematemesis and had been on aspirin and had a drop in his blood count. The patient was on aspirin due to prior [place] years ago. The patient underwent an EGD today which showed a linear Cecile-Dennis tear at the EG junction. He also had some evidence of congestive gastropathy, but there was no bleeding from the stomach. The duodenum was normal. IMPRESSION: The patient has Cecile-Dennis tear. Plan on treating it for 2 weeks with Carafate twice a day. He can resume his aspirin whenever it is deemed to be necessary.
--- NOTE | 2016-06-02 15:31 | Anesthesiology Progress Note ---
Anesthesia Post Op Note Date & Time Jun 02, 2016 at 15:31 Vital Signs Pain Intensity: 0 Vital Signs Past 12 Hours Date Time Temp Pulse Resp B/P Pulse Ox O2 Delivery O2 Flow Rate FiO2 06/02/16 14:54 136/88 06/02/16 14:49 58 18 97/55 95 Room Air 06/02/16 14:34 58 18 116/61 98 Mask 5 06/02/16 13:32 36.9 62 18 132/70 96 Room Air 06/02/16 12:58 36.6 59 18 135/74 97 Room Air 06/02/16 12:00 97 Room Air 06/02/16 11:25 36.6 59 18 135/74 97 06/02/16 08:00 95 Room Air 06/02/16 07:46 36.6 64 18 131/72 95 Room Air 06/02/16 04:45 36.8 62 18 107/68 97 06/02/16 04:00 Room Air Notes Mental Status: alert / awake / arousable, participated in evaluation Pt Amnestic to Procedure: Yes Nausea / Vomiting: adequately controlled Pain: adequately controlled Airway Patency, RR, SpO2: stable & adequate BP & HR: stable & adequate Hydration State: stable & adequate Anesthetic Complications: no major complications apparent
[2016-06-02 16:40] LABS: HEMATOCRIT 29.2 % (42-52)
[2016-06-03] MEDS: PANTOprazole INJ 40 MG in DEXTROSE 5% 100ML IV SCH ×2 (00:58→05:58)
[2016-06-03] MEDS: NSS + 20MEQ KCL 1000ML 1,000 ML IV SCH (02:13)
[2016-06-03 04:12] VITALS: BP 105/61; PULSE 66; TEMP 36.8; O2SAT 97
[2016-06-03] MEDS: HYDROCORTISONE IV 100 MG in SYRINGE 0 ML IV SCH ×2 (04:57→13:04)
[2016-06-03 07:18] VITALS: BP 114/68; PULSE 72; TEMP 36.8; O2SAT 97
[2016-06-03 07:30] LABS: EOS % 0.1 %; HEMATOCRIT 25.8 % (42-52); IG% 0.2 %; LYMPH ABS # 0.82 K/uL (1.2-3.4); MEAN CELL VOLUME 83.5 fL (80-100); MEAN CORPUSCULAR HEMOGLOBIN 27.5 pg (25-34); MEAN CORPUSCULAR HGB CONC 32.9 g/dl (32-36); MEAN PLATELET VOLUME 10.4 fL (7.4-10.4); MONO % 4.8 %; NEUT % 84.9 %; PLATELET COUNT 127 K/uL (130-400); RED BLOOD COUNT 3.09 M/uL (4.7-6.1); WHITE BLOOD COUNT 8.21 K/uL (4.8-10.8)
[2016-06-03 08:04] LABS: BUN/CREATININE RATIO 17.1 (10-20); CALCIUM 8.5 mg/dl (8.5-10.1); MAGNESIUM 2.2 mg/dl (1.8-2.4); POTASSIUM 4.2 mmol/L (3.5-5.1)
[2016-06-03 08:19] LABS: COMPLETE YES
[2016-06-03] MEDS: INSULIN ASPART 100 UNITS/ML 3 ML PEN SC SCH ×2 (08:29→12:57)
[2016-06-03] MEDS ORDERED: PANTOprazole SOD 40 MG TAB PO SCH (09:00)
[2016-06-03] MEDS ORDERED: SUCRALFATE 1 GM TAB PO SCH (09:00)
[2016-06-03 11:43] VITALS: BP 116/67; PULSE 59; TEMP 36.5; O2SAT 99
[2016-06-03 14:30] VITALS: BP 113/62; PULSE 63; TEMP 36.3; O2SAT 100
[2016-06-03 14:55] LABS: HEMATOCRIT 31.4 % (42-52)
[2016-06-03] MEDS ORDERED: SUCR1TAB PO (15:41)
[2016-06-03] MEDS ORDERED: PRT40 PO (15:41)
--- NOTE | 2016-06-03 15:44 | Discharge Instructions ---
Discharge Instructions Date of Service Jun 03, 2016. Admission Reason for Admission: Nausea And Vomiting, Up Gi Bleeding Discharge Discharge Diagnosis / Problem: Cecile-Dennis tear Discharge Goals Goal(s): Decrease discomfort, Improve function, Increase independence, Improve disease control, Improve nutritional status, Learn about illness, Diagnostic testing, Therapeutic intervention, Prevent Disease Progression, Specific goals Activity Recommendations Activity Limitations: resume your previous activity . Instructions / Follow-Up Instructions / Follow-Up you have Cecile-Dennis tear you need to take Protonix for 6 week, take Sucralfate tablets 1 gram PO BID for 2 weeks, avoid NSAID follow up with Per Diem Nurse as instructed - you need to follow up with your primary care physician in 1 week, - take medication as instructed, never overdose or any misuse, or take with alcohol, because misuse of medicine may cause organ damage or , call your primary care physician if have questions of medicaitons. - call your primary care physician OR go to local emergency room if has any fever/chill, chest pain, shortness of breathing, nausea/vomiting/abdominal pain , facial droop/slurry speech/local weakness, or if has any questions. - fall precaution - diet as instructed - you need to follow up with your subspecialist , ie gastro - you should understand that it is important to follow up the above instruction , and "not following the above instruction" may cause delayed or missed care of your medical conditions which may cause permanent organ damage and even . Current Hospital Diet Patient's current hospital diet: Diabetes Type 2 Diet Discharge Diet Recommended Diet: AHA Diet (Heart Healthy) Procedures Procedures Performed: EGD Pending Studies Studies pending at discharge: no Laboratory Results Hemoglobin A1c Test 05/02/16 10:51 Range/Units Estimated Average Glucose 143 mg/dl Hemoglobin A1c 6.6 H 4.5-5.6 % Medical Emergencies . Who to Call and When: Medical Emergencies: If at any time you feel your situation is an emergency, please call 911 immediately. . Non-Emergent Contact Non-Emergency issues call your: Primary Care Provider, [facility] Nurse . . "Provider Documentation" section prepared by Aleksander Rangel. VTE Core Measure Inpt VTE Proph given/why not?: SCD's
[2016-06-03 15:55] VITALS: BP 113/62; PULSE 63; TEMP 36.3; O2SAT 100
--- NOTE | 2016-06-03 16:11 | Discharge Summary ---
Discharge Summary Date of Service Jun 03, 2016. Discharge Summary Admission Date: May 31, 2016 at 22:21 Discharge Date: Jun 03, 2016 Principal Diagnosis: Cecile-Dennis tear Problems/Secondary Diagnoses: Acute blood loss anemia Procedures: EGD Consultations: GI Medication Reconciliation New Medications: Pantoprazole (Pantoprazole Sodium) 40 Mg Tab 40 MG PO QAM for 42 Days, #42 TAB Sucralfate (Sucralfate) 1 Gm Tab 1 GM PO BID for 14 Days, #28 TAB Continued Medications: Atorvastatin (Lipitor) 10 Mg Tab 10 MG PO HS, TAB Cholecalciferol (Vitamin D3) Unknown Strength Tab Unknown Dose PO DAILY for 90 Days, TAB 3 Refills Docusate Sodium (Colace) 100 Mg Cap 1 CAP PO DAILY for 30 Days, #30 CAP Prednisone (Prednisone) 5 Mg Tab 5 MG PO DAILY, TAB Discontinued Medications: Aspirin (Aspirin Ec) 81 Mg Tab 81 MG PO DAILY Discharge Exam Doing well, up and walk in the hallway, no dizziness, no more tarry stool, Review of Systems: Constitutional: No chills, No fatigue, No fever, No problem reported, No sweats, No weakness, No weight loss Eyes: No diplopia, No discharge, No eye pain, No problem reported, No redness, No worsening of vision ENT: No dental problems, No hearing loss, No nasal symptoms, No problem reported, No sore throat, No tinnitus, No trouble swallowing, No unusual epistaxis Respiratory: No cough, No dyspnea at rest, No dyspnea on exertion, No hemoptysis, No problem reported, No shortness of breath, No sputum, No wheezing Cardiovascular: No PND, No chest pain, No claudication, No edema, No orthopnea, No palpitations, No problem reported Abdomen: No GI bleeding, No constipation, No diarrhea, No nausea, No pain, No problem reported, No vomiting Musculoskeletal: No calf pain, No joint pain, No muscle pain, No problem reported, No swelling Genitourinary - Male: No dysuria, No hematuria, No impotence, No lesions, No penile discharge, No problem reported, No urinary frequency, No urinary hesitancy, No urinary incontinence, No urinary retention, No urinary urgency Neurologic: No balance problems, No memory loss, No numbness/tingling, No paralysis, No problem reported, No vertigo, No weakness Psychiatric: No anhedonism, No anxiety, No depression symptoms, No insomnia , No problem reported, No substance abuse Endocrine: No excessive thirst, No excessive urination, No fatigue, No problem reported Hematologic / Lymphatic: No abnormal bleeding/bruising, No clotting problems , No night sweats, No problem reported, No swollen lymph nodes Integumentary: No bleeding, No color change, No itch, No new/changing skin lesions, No problem reported, No rash Physical Exam: General Appearance: WD/WN, no apparent distress, + pertinent finding (mild pale) Eyes: normal inspection, PERRL, EOMI ENT: normal ENT inspection, hearing grossly normal, TMs normal, pharynx normal Neck: supple, no adenopathy, thyroid normal, no JVD Respiratory/Chest: chest non-tender, normal breath sounds, no respiratory distress, + decreased breath sounds Cardiovascular: regular rate, rhythm, no edema, no gallop, no JVD, no murmur , normal peripheral pulses Abdomen / GI: normal bowel sounds, non tender, soft, no organomegaly, no pulsatile mass Extremities: normal inspection, no calf tenderness, normal capillary refill , no pedal edema, normal range of motion Neurologic/Psychiatric: project developer II-XII nml as tested, no motor/sensory deficits , alert, normal mood/affect, normal reflexes, oriented x 3 Skin: normal color, warm/dry Hospital Course (1) Upper GI bleeding (2) Nausea & vomiting (3) PMR (polymyalgia rheumatica) (4) Advance care planning 85-year-old white male admitted because of Upper GI bleed/near syncope on 2016 Upper GI bleed/near syncope, resolved Associated with dizziness, black stool No more dizziness or black stool Not really up and walk yet Hemoglobin minimal decreased from 9.2-8.7 Continue nothing by mouth, IV fluid Follow-up H&H EGD was done on 05/05/2016, which showed Cecile-Dennis tear GI talked about Protonix 6 to 8 week, avoid NSAID,,Carafate Heart murmur is not new I told him to follow-up with PCP Mild hypernatremia, resolved after IV fluid Hypercholesterolemia- Polymyalgia rheumatica Hyperglycemia The above condition is stable and continue current care Continue on Accu-Cheks 4 times a day with NovoLog coverage. The above condition stable GI prophylaxis on Protonix DVT prophylaxis, heparin per duct is contraindicated because of GI bleeding Patient was discharged in stable condition Discussed with patient and his son about a care plan in bedside Instructions / Follow-Up you have Cecile-Dennis tear you need to take Protonix for 6 week, take Sucralfate tablets 1 gram PO BID for 2 weeks, avoid NSAID follow up with Clerical Clerk as instructed - you need to follow up with your primary care physician in 1 week, - take medication as instructed, never overdose or any misuse, or take with alcohol, because misuse of medicine may cause organ damage or , call your primary care physician if have questions of medicaitons. - call your primary care physician OR go to local emergency room if has any fever/chill, chest pain, shortness of breathing, nausea/vomiting/abdominal pain , facial droop/slurry speech/local weakness, or if has any questions. - fall precaution - diet as instructed - you need to follow up with your subspecialist , ie gastro - you should understand that it is important to follow up the above instruction , and "not following the above instruction" may cause delayed or missed care of your medical conditions which may cause permanent organ damage and even . Total Time Spent: Greater than 30 minutes This includes examination of the patient, discharge planning, medication reconciliation, and communication with other providers. Discharge Instructions Please refer to the electronic Patient Visit Report (Discharge Instructions) for additional information. Additional Copies To Delfin Armando D.O.Int.Med. Problem Qualifiers (1) Nausea & vomiting: Vomiting type: unspecified
--- NOTE | 2016-06-03 17:14 | GASTROENTEROLOGY PROGRESS NOTE ---
DATE: 06/03/2016 HISTORY OF PRESENT ILLNESS: The patient was admitted over the weekend for upper GI bleeding. The patient underwent upper endoscopy yesterday and found to have a lesion in the proximal stomach consistent with a linear ulceration and suspected Cecile-Dennis tear. Overnight the patient has not had any melena or bright red blood per rectum, hematemesis or coffee-ground emesis. His hemoglobin has remained stable and actually his 2:00 lab today reveals that his hemoglobin is up to 10.1 from 8.5 earlier this morning without transfusions. The patient has no abdominal pain. His vital signs, the patient is currently afebrile 36.3, blood pressure 113/62, respirations 22, heart rate 63, 100% on room air. MEDICATIONS: Include Carafate, pantoprazole 40 mg daily, insulin, acetaminophen, Zofran and hydrocortisone q. 8. REVIEW OF SYSTEMS: Otherwise noncontributory based on 14-point exam. ALLERGIES: No known drug allergies. PHYSICAL EXAMINATION: GENERAL: Today is unremarkable. ABDOMEN: Soft, nontender, nondistended. Good bowel sounds. EXTREMITIES: Without edema. HEART: Normal S1, S2. LUNGS: Clear to auscultation. RECTAL: Exam is deferred. IMPRESSION: The patient reports eating and tolerating liquids and solid food earlier today. IMPRESSION: The patient with a proximal gastric ulcer in the proximal stomach as the suspected cause of bleeding. We would continue medications orally including pantoprazole 40 mg daily, sucralfate 1 gram 4 times daily for 2 weeks and then can be discontinued. The patient should avoid the use of any NSAIDs and aspirin (Tylenol okay). Hemoglobin should be followed in several days to ensure stability. Will sign off at this time. All questions answered. MTDD
== END 2016-06-03 16:31 | disposition home or self-care (01) | DRG 369 ==
LOC: ENRESERVDT → ENRESERVTM → C.EDB 19:45 → C.MED 22:21
PROVIDERS: ADMIT Hospitalist; ATTEND Hospitalist
PROC: 0DJ08ZZ Inspection of Upper Intestinal Tract, Via Natural or Artificial Opening Endoscopic (ICD-10-PCS; principal; 2016-06-02 13:30)
DX: K22.6 Gastro-esophageal laceration-hemorrhage syndrome (principal); E87.0 Hyperosmolality and hypernatremia; D62 Acute posthemorrhagic anemia; K86.1 Other chronic pancreatitis; K25.4 Chronic or unspecified gastric ulcer with hemorrhage; K92.0 Hematemesis; I25.2 Old myocardial infarction; M35.3 Polymyalgia rheumatica; R55 Syncope and collapse; R01.1 Cardiac murmur, unspecified; E78.00 Pure hypercholesterolemia, unspecified; R73.9 Hyperglycemia, unspecified; K31.89 Other diseases of stomach and duodenum; I25.10 Atherosclerotic heart disease of native coronary artery without angina pectoris; Z87.891 Personal history of nicotine dependence; Z79.82 Long term (current) use of aspirin; Z79.52 Long term (current) use of systemic steroids; Z79.899 Other long term (current) drug therapy

== ENCOUNTER → 2016-06-16 | Outpatient (CLI) | payer MEDICARE ==
[~2016-06-16] MED LIST changes: -ASPI81TA28 PO; +ATOR10TA82 PO; -ATOR10TA88 PO
[2016-06-16 17:07] LABS: MEAN CELL VOLUME 83.8 fL (80-100); MEAN CORPUSCULAR HEMOGLOBIN 26.8 pg (25-34); MEAN CORPUSCULAR HGB CONC 31.9 g/dl (32-36); MEAN PLATELET VOLUME 10.3 fL (7.4-10.4); PLATELET COUNT 217 K/uL (130-400); WHITE BLOOD COUNT 6.74 K/uL (4.8-10.8)
[2016-06-16 17:48] LABS: BLOOD UREA NITROGEN 11 mg/dl (7-18); BUN/CREATININE RATIO 9.6 (10-20); CALCIUM 9.2 mg/dl (8.5-10.1); CARBON DIOXIDE 24 mmol/L (21-32); CHLORIDE 108 mmol/L (98-107); GLUCOSE 155 mg/dl (70-99); SODIUM 141 mmol/L (136-145)
== END | disposition home or self-care (01) ==
LOC: C.LABBC 13:37
PROVIDERS: ATTEND Physician Assistant Medical
DX: K22.6 Gastro-esophageal laceration-hemorrhage syndrome (principal); I10 Essential (primary) hypertension

== ENCOUNTER → 2016-06-30 | Outpatient (CLI) | payer MEDICARE ==
[2016-06-30 12:23] LABS: HEMATOCRIT 34.7 % (42-52); MEAN CELL VOLUME 84.6 fL (80-100); MEAN CORPUSCULAR HEMOGLOBIN 26.8 pg (25-34); MEAN CORPUSCULAR HGB CONC 31.7 g/dl (32-36); MEAN PLATELET VOLUME 10.3 fL (7.4-10.4); PLATELET COUNT 231 K/uL (130-400); WHITE BLOOD COUNT 6.38 K/uL (4.8-10.8)
== END | disposition home or self-care (01) ==
LOC: C.LABPBG 10:35
PROVIDERS: ATTEND Physician Assistant Medical
DX: D64.9 Anemia, unspecified (principal); R53.83 Other fatigue

== ENCOUNTER → 2016-09-16 | Outpatient (CLI) | payer MEDICARE ==
[~2016-09-16] MED LIST changes: -ATOR10TA82 PO; +ATOR10TA88 PO
[2016-09-16 17:41] LABS: CHOLESTEROL/HDL RATIO 3.2
[2016-09-16 18:40] LABS: ESTIMATED AVERAGE GLUCOSE 146 mg/dl; HA1C FLAG Normal (Normal)
== END | disposition home or self-care (01) ==
LOC: C.LABPBG 12:17
PROVIDERS: ATTEND Physician Assistant
DX: E78.00 Pure hypercholesterolemia, unspecified (principal); E11.9 Type 2 diabetes mellitus without complications

== ENCOUNTER → 2016-10-22 | Outpatient (CLI) | payer MEDICARE | END | disposition home or self-care (01) | LOC: C.LABPBG 10:05 | PROVIDERS: ATTEND Physician Assistant | DX: E11.9 Type 2 diabetes mellitus without complications (principal) ==

== ENCOUNTER → 2016-12-23 | Outpatient (CLI) | payer MEDICARE ==
[2016-12-24 07:40] LABS: ESTIMATED AVERAGE GLUCOSE 131 mg/dl; HA1C FLAG Normal (Normal)
== END | disposition home or self-care (01) ==
LOC: C.LABPBG 11:56
PROVIDERS: ATTEND Physician Assistant
DX: M35.3 Polymyalgia rheumatica (principal); E11.9 Type 2 diabetes mellitus without complications

== ENCOUNTER → 2017-01-16 | Outpatient (CLI) | payer MEDICARE ==
[~2017-01-16] MED LIST changes: +ATOR10TA82 PO; -ATOR10TA88 PO
== END | disposition home or self-care (01) ==
LOC: C.LABPBG 09:07
PROVIDERS: ATTEND Internal Medicine Rheumatology
DX: M35.3 Polymyalgia rheumatica (principal); M79.641 Pain in right hand; M18.9 Osteoarthritis of first carpometacarpal joint, unspecified

== ENCOUNTER → 2017-02-20 | Outpatient (CLI) | payer MEDICARE | END | disposition home or self-care (01) | LOC: C.LABPBG 09:45 | PROVIDERS: ATTEND Internal Medicine Rheumatology | DX: M35.3 Polymyalgia rheumatica (principal); M79.641 Pain in right hand; M18.9 Osteoarthritis of first carpometacarpal joint, unspecified ==

== ENCOUNTER → 2017-03-17 | Outpatient (CLI) | payer MEDICARE | END | disposition home or self-care (01) | LOC: C.LABPBG 08:22 | PROVIDERS: ATTEND Internal Medicine Rheumatology | DX: M35.3 Polymyalgia rheumatica (principal); M79.641 Pain in right hand; Z79.52 Long term (current) use of systemic steroids ==

== ENCOUNTER → 2017-06-25 | Outpatient (CLI) | payer MEDICARE | END | disposition home or self-care (01) | LOC: C.LABPBG 09:22 | PROVIDERS: ATTEND Internal Medicine Rheumatology | DX: M35.3 Polymyalgia rheumatica (principal); M54.5 Low back pain; Z79.52 Long term (current) use of systemic steroids ==

== ENCOUNTER → 2017-06-30 | Outpatient (CLI) | payer MEDICARE | END | disposition home or self-care (01) | LOC: C.LABPBG 08:55 | PROVIDERS: ATTEND Internal Medicine Cardiovascular Disease | DX: I25.10 Atherosclerotic heart disease of native coronary artery without angina pectoris (principal); E78.00 Pure hypercholesterolemia, unspecified; I20.9 Angina pectoris, unspecified ==

== ENCOUNTER → 2017-07-14 | Outpatient (CLI) | payer MEDICARE | END | disposition home or self-care (01) | LOC: C.MAMM 14:31 | PROVIDERS: ATTEND Physician Assistant | DX: Z00.00 Encounter for general adult medical examination without abnormal findings (principal); M85.80 Other specified disorders of bone density and structure, unspecified site ==

== ENCOUNTER 2018-12-30 10:09 | Inpatient (IN) ==
[2018-12-30] MEDS ORDERED: ONDANSETRON INJ 2 MG/ML 2 ML VIAL IV STA (10:25)
[2018-12-30] MEDS ORDERED: SODIUM CHLORIDE 0.9% 500 ML IV SCH (10:30)
[2018-12-30] MEDS: HYDROmorphone INJ 0.5 MG/0.5 ML SYR IV PRN ×2 (10:43→12:16)
[2018-12-30 10:54] LABS: Basophils # (auto) 0.03 K/uL (0-0.2); Basophils % (auto) 0.3 %; Eosinophils # (auto) 0.39 K/uL (0-0.5); Eosinophils % (auto) 3.8 %; Hematocrit (blood only) 37.8 % (42-52); Hemoglobin 12.2 g/dL (14.0-18.0); Immature Granulocytes # (auto) 0.02 K/uL (0.00-0.02); Immature Granulocytes % (auto) 0.2 %; Lymphocytes # (auto) 0.79 K/uL (1.2-3.4); Lymphocytes % (auto) 7.7 %; Mean Corpuscular Hemoglobin 27.2 pg (25-34); Mean Corpuscular Hgb Conc 32.3 g/dL (32-36); Mean Corpuscular Volume 84.2 fL (80-100); Monocytes # (auto) 0.63 K/uL (0.11-0.59); Monocytes % (auto) 6.2 %; Neutrophils # (auto) 8.34 K/uL (1.4-6.5); Neutrophils % (auto) 81.8 %; Platelet Count 188 K/uL (130-400); RDW Coefficient of Variation 15.3 % (11.5-14.5); RDW Standard Deviation 46.9 fL (36.4-46.3); Red Blood Count 4.49 M/uL (4.7-6.1)
[2018-12-30 11:10] LABS: Albumin Level 3.3 gm/dl (3.4-5.0); BUN Creatinine Ratio 13.4 (10-20); Creatinine Clr Calc Pharmacy 36.6 ml/min; Est GFR (African American) 53.9; Est GFR (Non-African American) 46.5; Potassium 3.6 mmol/L (3.5-5.1)
[2018-12-30 11:13] LABS: Albumin Globulin Ratio 0.9 (0.9-2); Bilirubin,Total 1.3 mg/dl (0.2-1); Globulin 3.6 gm/dl (2.5-4.0); Total Protein 6.9 gm/dl (6.4-8.2)
--- NOTE | 2018-12-30 11:54 | CT Scan Report ---
ABDOMEN AND PELVIS CT WITHOUT CONTRAST CT DOSE: 359.96 mGy.cm HISTORY: lower abd pain TECHNIQUE: Multiaxial CT images of the abdomen and pelvis were performed without contrast. A dose lo wering technique was utilized adhering to the principles of ALARA. COMPARISON STUDY: Abdomen and pelvis CT 05/31/2016. FINDINGS: Mild dependent changes seen within the lung bases. No pneumoperitoneum. No pneumatosis. No suspicious lytic are blastic osseous lesions. The unenhanced liver, spleen, and adrenal glands are un remarkable. Moderate perinephric edema which is nonspecific. Right-sided nephrolithiasis. No ureteral stones. No hydronephrosis. Normal bladder. Normal left kidney. The gallbladder is mildly distended. Multiple calcifications are again noted throughout the pancreas. There is diffuse peripancreatic infl ammatory change and a small amount of fluid tracking along the right paracolic gutter. There is trace perihepatic ascites. Findings are consistent with acute on chronic pancreatitis. No loculated fluid collections identified on this noncontrast study. 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 This has progressed in the interval. No retroperitoneal lymp hadenopathy. No bowel wall thickening or obstruction. Colonic diverticulosis. No evidence for diverti culitis. IMPRESSION: 1. Acute on chronic pancreatitis. 2. Right-sided nephrolithiasis. No ureteral stones. No hydronephrosis. 3. Trace ascites. 4. Additional findings as described above. Electronically signed by: Rick Rodriguez M.D. 12/30/2018 11:53 AM
--- NOTE | 2018-12-30 13:25 | XRay Report ---
XR chest 1V portable CLINICAL HISTORY: abdominal pain pain COMPARISON STUDY: 05/31/2016 FINDINGS: Moderate interstitial prominence both lung bases. Mid and upper lungs are clear. No well-de fined focal infiltrate. IMPRESSION: Prominent nonspecific bibasilar interstitial markings. Study is otherwise negative. The above report was generated using voice recognition software. It may contain grammatical, syntax or spelling errors. Electronically signed by: Jose Jackson M.D. 12/30/2018 1:24 PM
[2018-12-30] MEDS ORDERED: GLUCOSE 10 TABS/TUBE PO PRN (13:49)
[2018-12-30] MEDS ORDERED: CARBOHYDRATES FOR HYPOGLYCEMIA PO PRN (13:49)
[2018-12-30] MEDS ORDERED: POLYETHYLENE (MIRALAX) 17 GM PACK PO PRN (13:49)
[2018-12-30] MEDS ORDERED: HYDROmorphone INJ 1 MG/ML SYRINGE IV PRN (13:49)
[2018-12-30] MEDS ORDERED: DEXTROSE 50% 50 ML SYRINGE IV PRN (13:49)
[2018-12-30] MEDS ORDERED: ACETAMINOPHEN 325 MG TAB PO PRN (13:49)
[2018-12-30] MEDS ORDERED: GLUCAGON FOR INJ 1 MG VIAL SQ PRN (13:49)
[2018-12-30] MEDS ORDERED: GLUCOSE 40% GEL 15 GM TUBE PO PRN (13:49)
--- NOTE | 2018-12-30 13:49 | History & Physical Report ---
Date of Service December 30, 2018 Assessment & Plan (1) Acute pancreatitis: -Admit to [facility] -Patient presenting from home with reports of intermittent abdominal pain for the past 1 week that became persistent last evening -In the ED, found to have lipase 20,[address] scan findings consistent with acute pancreatitis -Etiology unclear (LFTs WNL, no signs of cholelithiasis on CT, no offending medications noted, no EtOH use) -Check triglycerides -Afebrile, no leukocytosis -N.p.o., IVF, PRN pain medication and antiemetics -Follow LFTs and lipase in a.m. (2) CAD (coronary artery disease): -Appears stable, no reports of chest pain -Continue aspirin, statin, beta-melba (3) Hypertension: -BP controlled, continue metoprolol lisinopril (4) DM type 2 (diabetes mellitus, type 2): -Hgb A1c 6.9 06/2018 -Hold oral agents and utilize NovoLog per protocol hospitalized (5) PMR (polymyalgia rheumatica): -Continue chronic dose of prednisone (6) DVT prophylaxis: -SQ heparin History of Present Illness Chief Complaint: Abdominal pain Primary Care Provider: Noel Thapa MD Presents to the ED with abdominal pain. Patient reports intermittent abdominal pain over the past 1 week. Denies any specific causative or relieving factors. Last evening, he developed abdominal pain that did not go away. He then presented to the ER for further evaluation. Patient reports pain is localized to the mid abdomen and radiates to the lower and upper abdomen. This morning, he had some radiation of the pain into his back. He reports associated nausea however denies any vomiting. No diarrhea, bright red bleeding per rectum, dark tarry stools. Denies fevers and chills. No chest pain or shortness of breath. He denies lightheadedness, dizziness, diaphoresis, syncopal event. No urinary symptoms. Patient denies any new medications. No heavy alcohol use. In the ED, lipase is found to be 20,441. CT ABD/pelvis showing signs of acute pancreatitis. LFTs WNL. Patient is hemodynamically stable. He was given IVF, IV Zofran, IV Dilaudid. Allergies Allergy/AdvReac Type Severity Reaction Status Date / Time No Known Allergies Allergy Unverified 12/30/18 10:46 Home Medications Home Medications Medication Instructions Recorded Confirmed Type aspirin 81 mg tablet,delayed 81 mg PO DAILY 12/24/18 12/30/18 History release atorvastatin 10 mg tablet 10 mg PO QPM 12/24/18 12/30/18 History multivitamin tablet 1 tab PO DAILY 12/24/18 12/30/18 History nitroglycerin 0.4 mg sublingual 0.4 mg SL Q5M PRN 12/24/18 12/30/18 History tablet cholecalciferol (vitamin D3) 1,000 unit PO DAILY 12/30/18 12/30/18 History lisinopril 5 mg PO DAILY 12/30/18 12/30/18 History lutein 20 mg PO DAILY 12/30/18 12/30/18 History metformin 500 mg PO DAILY 12/30/18 12/30/18 History metoprolol succinate 25 mg PO DAILY 12/30/18 12/30/18 History omega 2-rlv-qmg-fish oil [Fish Oil] 1 cap PO BID 12/30/18 12/30/18 History peg 400-propylene glycol (PF) 1 drp OPHTHALMIC (EYE) BID PRN 12/30/18 12/30/18 History [Systane (PF)] polyethylene glycol 3350 [Miralax] 17 g PO DAILY PRN 12/30/18 12/30/18 History prednisone 2.5 mg PO DAILY 12/30/18 12/30/18 History prednisone 5 mg PO DAILY 12/30/18 12/30/18 History Past Med/Surg History Medical History Hypertension (Chronic) GERD (gastroesophageal reflux disease) (Chronic) CAD (coronary artery disease) (Chronic) 1993-SC, S/P PTCA to LAD Dyslipidemia (Chronic) DM type 2 (diabetes mellitus, type 2) (Chronic) PMR (polymyalgia rheumatica) (Chronic) Surgical History History of cataract surgery (Chronic) History of appendectomy (Chronic) Family History Father Stroke Social History Preferred Language: Burkinan Communication Ability: Effective 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 Required: No Beliefs That Will Affect Care: None Current Living Situation: Spouse Other Information That Helps Us Care for You: No Feels Safe at Home: Yes Safety Concerns: Feels Safe At This Time Smoking Status: Former smoker Do You Dip or Chew Tobacco: No ; Second Hand Exposure: No ; Tobacco Cessation Education Requested by Patient: No Hx Alcohol Use: Yes Alcohol Intake Frequency: Rarely Hx Substance Use: No Review of Systems Review of Systems: ROS per HPI, all other systems reviewed and negative Physical Exam Constitutional: WD/WN, vitals as above ENMT: external ear and nose normal, oropharynx normal Respiratory: normal respiratory effort, lungs clear to auscultation Cardiovascular: Rate/Rhythm: regular rate and regular rhythm Heart Sounds: + murmur (Grade 3/6, systolic) Vessels: normal peripheral pulses Extremities: no edema Gastrointestinal (Abdomen): Inspection/Auscultation: normal bowel sounds Percussion/Palpation: + abdomen tender (Generalized however more pronounced over the epigastric and LUQ) and abdomen soft; no hepatosplenomegaly Musculoskeletal: no cyanosis or clubbing, extremities motor strength 5/5 Skin: no rashes, warm and dry Neurologic: PERRL, EOMI, accommodation nl, no face palsy, no dysarthria Psychiatric: A+Ox3, euthymic affect Results & Data Vital Signs (Past 12 Hours) Vital Signs Temp Pulse Pulse Resp BP BP Pulse Ox 12/30/18 13:00 58 L 17 146/84 H 98 12/30/18 12:18 61 18 132/81 96 12/30/18 11:32 68 68 19 150/83 H 93 12/30/18 10:11 36.5 C 70 20 149/81 H 98 Laboratory Results Short CBC 12/30/18 Range/Units 10:35 WBC 10.20 (4.8-10.8) K/uL Hgb 12.2 L (14.0-18.0) g/dL Hct 37.8 L (42-52) % Plt Count 188 (130-400) K/uL BMP 12/30/18 10:35 Sodium 139 Potassium 3.6 Chloride 107 Carbon Dioxide 25 BUN 18 Creatinine 1.35 Glucose 146 H Calcium 10.0 Liver Function 12/30/18 Range/Units 10:35 Total Bilirubin 1.3 H (0.2-1) mg/dl AST 16 (15-37) U/L ALT 23 (12-78) U/L Alkaline Phosphatase 57 (45-117) U/L Albumin 3.3 L (3.4-5.0) gm/dl Diagnostic Findings CT ABD/PELVIS IMPRESSION: 1. Acute on chronic pancreatitis. 2. Right-sided nephrolithiasis. No ureteral stones. No hydronephrosis. 3. Trace ascites. CXR IMPRESSION: Prominent nonspecific bibasilar interstitial markings. Study is otherwise negative. Code Status & VTE Plan Code Status Patient is a full code as per my discussion with him. VTE Prophylaxis Plan VTE Prophylaxis will be ordered: Yes Supervising Physician Co-Signing Physician Notes I have seen and examined the patient and have discussed the case with the provider above. I agree with the assessment and plan as stated. 88 yo well controlled diabetic admitted with acute pancreatitis. Lisinopril was recently started by PCP in october. Although medication-induced pancreatitis is rare, his age makes him more susceptible to insult. He also reports eating alot of "junk food" and son reports a recent binge in sugary candy. 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 No gallstones on imaging, alcohol use. Triglycerides pending. Physical exam reveals a WNWD man in mild distress with movement who has significant epigastric tenderness to palpation. Lower abdomen is not painful, and is soft and not distended. Heart exam reveals a 3/6 KIP at the LSB. No JVD or peripheral edema is present. His lungs are clear to auscultation. Agree with plan to provide supportive care and stop lisinopril for now. DO Jhonny
[2018-12-30] MEDS ORDERED: Nursing to Pharmacy Communication ONE (14:16)
[2018-12-30] MEDS: LACTATED RINGER'S 1,000 ML IV SCH ×2 (14:20→20:26)
[2018-12-30] MEDS: HEPARIN SOD 5,000 UNIT/0.5 ML VIAL SQ SCH ×2 (14:37→20:40)
[2018-12-30] MEDS ORDERED: TRAMADOL HCL 50 MG TABLET PO PRN (14:56)
[2018-12-30] MEDS ORDERED: MoRPHine SULFATE 4 MG/ML 1 ML CARP\\VIAL IV PRN (14:56)
[2018-12-30] MEDS: ACETAMINOPHEN 1,000 MG/100 ML VIAL IV SCH ×2 (15:24→23:52)
[2018-12-30] MEDS ORDERED: INSULIN ASPART 100 UNITS/ML 3 ML PEN SC SCH (16:30)
--- NOTE | 2018-12-30 17:07 | Emergency Department Note ---
Entered by Clotilde Reynolds acting as a scribe for Kole Nieto MD ED Provider Note CHIEF COMPLAINT: Abdominal pain HISTORY OF PRESENT ILLNESS: The patient is an 88 y/o male who presents to the emergency department for evaluation of intermittent abdominal pain that began 3 days ago. The patient states that the pain was off and on for the past few days across the lower abdomen. He reports that last night the pain became diffuse across the entire abdomen, severe, at an 8/10 and became constant. The patients family notes that the patient was admitted a few years ago for a GI bleed. The patient notes that he is nauseous, tired, and has a slight cough. Pt denies LOC, headache, fevers, chills, diaphoresis, visual changes, neck pain, chest pain, breathing difficulties, vomiting, abdominal pain, back pain, melena, hematochezia, urinary symptoms, numbness, weakness, lymphadenopathy, rash, or other complaints. REVIEW OF SYSTEMS: See HPI for pertinent positives and negatives. A total of ten systems were reviewed and were otherwise negative. PMHx/PSHx: GI bleed Heart attack polymyalgia rheumatica SOCIAL HISTORY: Patient lives at home. PHYSICAL EXAM: GENERAL: Awake, alert, well-appearing, in no distress HENT: Normocephalic, atraumatic. Oropharynx unremarkable. EYES: PERRL. Normal conjunctiva. Sclera non-icteric. NECK: Inspection normal. Non-tender. Supple. No nuchal rigidity. FROM. No masses. RESPIRATORY: Clear to auscultation. No wheezes. No rales. Normal respiratory effort. CARDIAC: Normal rate. Normal rhythm. No murmurs. No rubs. Extremities warm and well perfused. Pulses equal. No JVD. GI: Diffuse abdomen pain to palpation. Tenderness to percussion. There is rebound and guarding. No masses. RECTAL: Deferred. MUSCULOSKELETAL: Atraumatic. Chest examination reveals no tenderness. The back is symmetrical on inspection without obvious abnormality. There is no CVA tenderness to palpation. No joint edema. LOWER EXTREMITIES: Calves are equal size bilaterally and non-tender. 1+ edema. No discoloration. NEURO: Normal sensorium. No sensory or motor deficits noted. SKIN: No rash or jaundice noted. EMERGENCY DEPARTMENT COURSE: 1023: Past medical records reviewed. The patient was evaluated in room B02, and a complete history and physical examination were performed. 1138: I updated the patient and his family on his results. I discussed the treatment plan with them. 1152: I spoke with Stephanie Matthew [facility] They will evaluate for further management. MEDICAL DECISION MAKING: Prior records/ancillary studies reviewed. Triage Nursing notes reviewed and agree them. Additional history obtained from family. The patient's history was concerning for abdominal pain. Differential diagnosis: Etiologies such as appendicitis, diverticulitis, PUD, biliary pathology, UTI, pancreatitis, obstruction, mesenteric ischemia, aortic pathology, infections, inflammatory bowel disease, renal colic, as well as others were entertained. Physical examination findings: As above. ER treatment provided: IV Dilaudid IV Zofran Saline hydration On reassessment the patient felt better. Diagnostics interpreted by me: ECG: No acute ischemia The labs revealed an unremarkable CBC and chemistry panel. LFTs negative. Patient has a market elevation of his lipase consistent with pancreatitis. Imaging studies: CT scan of the abdomen pelvis was performed and reveals findings consistent with acute pancreatitis. Consultation: A consultation was placed with the Tony jordanist. The case was discussed and diagnostics were reviewed. The patient was evaluated in the ER for further treatment. IMPRESSION: Pancreatitis, generalized abdominal pain, mild anemia PLAN: Admitted The scribe's documentation has been prepared under my direction and personally reviewed by me in its entirety. I confirm that the note above accurately reflects all work, treatment, procedures, and medical decision making performed by me. Impression & Plan Pancreatitis, Abdominal pain, generalized, Anemia, mild Past Med/Surg History Medical History Hypertension (Chronic) GERD (gastroesophageal reflux disease) (Chronic) CAD (coronary artery disease) (Chronic) 1993-MS, S/P PTCA to LAD Dyslipidemia (Chronic) DM type 2 (diabetes mellitus, type 2) (Chronic) PMR (polymyalgia rheumatica) (Chronic) Surgical History History of cataract surgery (Chronic) History of appendectomy (Chronic) Family History Father Stroke Social History Preferred Language: Norwegian Communication Ability: Effective Distance Learning Program Coordinator Required: No Beliefs That Will Affect Care: None Current Living Situation: Spouse Other Information That Helps Us Care for You: No Feels Safe at Home: Yes Safety Concerns: Feels Safe At This Time Smoking Status: Former smoker Do You Dip or Chew Tobacco: No ; Second Hand Exposure: No ; Tobacco Cessation Education Requested by Patient: No Hx Alcohol Use: Yes Alcohol Intake Frequency: Rarely Hx Substance Use: No Results & Data Vital Signs Vital Signs - 24 hr 12/30/18 10:11 12/30/18 11:32 12/30/18 12:18 Temperature 36.5 C Temperature Source Oral Sepsis Recent Fever Within 48 Hours No Sepsis New/Unexplained Change in Mental Status No Sepsis Action Taken by Nursing No Action Required Pulse Rate 70 68 Pulse Rate [Apical] 68 61 Pulse Rhythm Regular Pulse Rhythm [Apical] Regular Respiratory Rate 20 19 18 Respiratory Effort / Characteristics Spontaneous Non-Labored Respiratory Depth Normal Normal Normal Blood Pressure 149/81 H Blood Pressure [Left Arm] 150/83 H 132/81 Blood Pressure Mean 103 Blood Pressure Mean [Left Arm] 105 98 Blood Pressure Position Sitting Blood Pressure Position [Left Arm] Sitting Pulse Oximetry 98 93 96 Oxygen Delivery Method Room Air Room Air Room Air Home Medications Current Medication List: was personally reviewed by me Laboratory Data Attestation: I reviewed the patient's lab results. Result diagrams: 12/30/18 10:35 12/30/18 10:35 Lab Results 12/30/18 12/30/18 12/30/18 Range/Units 10:35 10:35 10:35 WBC 10.20 (4.8-10.8) K/uL RBC 4.49 L (4.7-6.1) M/uL Hgb 12.2 L (14.0-18.0) g/dL Hct 37.8 L (42-52) % MCV 84.2 (80-100) fL MCH 27.2 (25-34) pg MCHC 32.3 (32-36) g/dL RDW Std Deviation 46.9 H (36.4-46.3) fL RDW Coeff of Yobany 15.3 H (11.5-14.5) % Plt Count 188 (130-400) K/uL MPV 10.0 (7.4-10.4) fL Immature Gran % (Auto) 0.2 % Neut % (Auto) 81.8 % Lymph % (Auto) 7.7 % [place] % (Auto) 6.2 % Eos % (Auto) 3.8 % Baso % (Auto) 0.3 % Immature Gran # (Auto) 0.02 (0.00-0.02) K/uL Neut # (Auto) 8.34 H (1.4-6.5) K/uL Lymph # (Auto) 0.79 L (1.2-3.4) K/uL [place] # (Auto) 0.63 H (0.11-0.59) K/uL Eos # (Auto) 0.39 (0-0.5) K/uL Baso # (Auto) 0.03 (0-0.2) K/uL Sodium 139 (136-145) mmol/L Potassium 3.6 (3.5-5.1) mmol/L Chloride 107 (98-107) mmol/L Carbon Dioxide 25 (21-32) mmol/L Anion Gap 7.0 (3-11) BUN 18 (7-18) mg/dl Creatinine 1.35 (0.6-1.4) mg/dl Est Cr Clr Drug Dosing 36.6 ml/min Est GFR ( Amer) 53.9 Est GFR (Non-Af Amer) 46.5 BUN/Creatinine Ratio 13.4 (10-20) Glucose 146 H (70-99) mg/dl POC Lactic Acid Dm (0.90-1.70) mmol/L Calcium 10.0 (8.5-10.1) mg/dl Total Bilirubin 1.3 H (0.2-1) mg/dl AST 16 (15-37) U/L ALT 23 (12-78) U/L Alkaline Phosphatase 57 (45-117) U/L Total Protein 6.9 (6.4-8.2) gm/dl Albumin 3.3 L (3.4-5.0) gm/dl Globulin 3.6 (2.5-4.0) gm/dl Albumin/Globulin Ratio 0.9 (0.9-2) Triglycerides 218 H (0-150) mg/dl Lipase 82842 H (73-393) U/L 12/30/18 Range/Units 10:41 WBC (4.8-10.8) K/uL RBC (4.7-6.1) M/uL Hgb (14.0-18.0) g/dL Hct (42-52) % MCV (80-100) fL MCH (25-34) pg MCHC (32-36) g/dL RDW Std Deviation (36.4-46.3) fL RDW Coeff of Yobany (11.5-14.5) % Plt Count (130-400) K/uL MPV (7.4-10.4) fL Immature Gran % (Auto) % Neut % (Auto) % Lymph % (Auto) % [place] % (Auto) % Eos % (Auto) % Baso % (Auto) % Immature Gran # (Auto) (0.00-0.02) K/uL Neut # (Auto) (1.4-6.5) K/uL Lymph # (Auto) (1.2-3.4) K/uL [place] # (Auto) (0.11-0.59) K/uL Eos # (Auto) (0-0.5) K/uL Baso # (Auto) (0-0.2) K/uL Sodium (136-145) mmol/L Potassium (3.5-5.1) mmol/L Chloride (98-107) mmol/L Carbon Dioxide (21-32) mmol/L Anion Gap (3-11) BUN (7-18) mg/dl Creatinine (0.6-1.4) mg/dl Est Cr Clr Drug Dosing ml/min Est GFR ( Amer) Est GFR (Non-Af Amer) BUN/Creatinine Ratio (10-20) Glucose (70-99) mg/dl POC Lactic Acid Dm 2.03 H (0.90-1.70) mmol/L Calcium (8.5-10.1) mg/dl Total Bilirubin (0.2-1) mg/dl AST (15-37) U/L ALT (12-78) U/L Alkaline Phosphatase (45-117) U/L Total Protein (6.4-8.2) gm/dl Albumin (3.4-5.0) gm/dl Globulin (2.5-4.0) gm/dl Albumin/Globulin Ratio (0.9-2) Triglycerides (0-150) mg/dl Lipase (73-393) U/L Administered Medications Heparin Sodium (Porcine) (Heparin Sodium (Porcine)) 5,000 units SQ Q8 ANKIT Stop: 01/29/19 13:59 Last Admin: 12/30/18 14:37 Dose: Not Given Documented by: [id number] Lactated Ringer's (Lr) 1,000 mls @ 150 mls/hr IV .Q6H40M ANKIT Stop: 01/29/19 13:48 Last Admin: 12/30/18 14:20 Dose: 150 mls/hr Documented by: [id number] Acetaminophen (Ofirmev) 1,000 mg in 100 mls @ 400 mls/hr IV Q8H ANKIT Stop: 01/29/19 15:59 Last Infusion: 12/30/18 16:05 Dose: 0 mls/hr Documented by: [id number] Admin: 12/30/18 15:24 Dose: 400 mls/hr Documented by: [id number] Morphine Sulfate (Morphine Sulfate) 4 mg IV Q4H PRN PRN Reason: Pain Stop: 01/13/19 14:55 Last Admin: 12/30/18 15:25 Dose: 4 mg Documented by: [id number] Discontinued Medications Hydromorphone HCl (Dilaudid) 0.25 mg IV Q15M PRN PRN Reason: Pain Stop: 01/13/19 10:24 Last Admin: 12/30/18 12:16 Dose: 0.25 mg Documented by: [id number] Admin: 12/30/18 10:43 Dose: 0.25 mg Documented by: [id number] Sodium Chloride (Nss) 500 mls @ 999 mls/hr IV .Q31M ANKIT Stop: 12/30/18 11:00 Last Infusion: 12/30/18 11:16 Dose: 0 mls/hr Documented by: [id number] Admin: 12/30/18 10:43 Dose: 999 mls/hr Documented by: [id number] Ondansetron HCl (Zofran) 4 mg IV NOW STA Stop: 12/30/18 10:26 Last Admin: 12/30/18 10:51 Dose: 4 mg Documented by: [id number] Imaging Data Radiologist's Impression: Radiology results as stated below per my review and the radiologist's interpretation: ABDOMEN AND PELVIS CT WITHOUT CONTRAST CT DOSE: 359.96 mGy.cm HISTORY: lower abd pain TECHNIQUE: Multiaxial CT images of the abdomen and pelvis were performed without contrast. A dose lowering technique was utilized adhering to the principles of ALARA. COMPARISON STUDY: Abdomen and pelvis CT 05/31/2016. FINDINGS: Mild dependent changes seen within the lung bases. No pneumoperitoneum. No pneumatosis. No suspicious lytic are blastic osseous lesions. The unenhanced liver, spleen, and adrenal glands are unremarkable. Moderate perinephric edema which is nonspecific. Right-sided nephrolithiasis. No ureteral stones. No hydronephrosis. Normal bladder. Normal left kidney. The gallbladder is mildly distended. Multiple calcifications are again noted throughout the pancreas. There is diffuse peripancreatic inflammatory change and a small amount of fluid tracking along the right paracolic gutter. There is trace perihepatic ascites. Findings are consistent with acute on chronic pancreatitis. No loculated fluid collections identified on this noncontrast study. 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 This has progressed in the interval. No retroperitoneal lymphadenopathy. No bowel wall thickening or obstruction. Colonic diverticulosis. No evidence for diverticulitis. IMPRESSION: 1. Acute on chronic pancreatitis. 2. Right-sided nephrolithiasis. No ureteral stones. No hydronephrosis. 3. Trace ascites. 4. Additional findings as described above. Electronically signed by: Rick Rodriguez M.D. 12/30/2018 11:53 AM ECG Data Attestation: I personally reviewed and interpreted this ECG as follows: Indication: abdominal pain Rate (beats per minute): 69 Rhythm: sinus rhythm Findings: + other (normal QRS, Normal axis ), + 1st degree AV block and + nonspecific-ST abn; no ST depression and no ST elevation Blood Pressure Blood Pressure Findings: Elevated blood pressure Blood Pressure Disposition: further management by hospitalist Discharge Plan Visit Data *Final* Discharge Date/Time: 12/30/18 13:25 Chief Complaint: Abdominal Pain Stated Complaint: ABDOMINAL PAIN, BACK PAIN, CHEST PAIN ED Provider: Kole Nieto Discharge Problem: Pancreatitis, Abdominal pain, generalized, Anemia, mild Patient Disposition: Admitted As Inpatient Discharge Instructions Interventions: ED Discharge Assessment Last Done: 12/30/18 13:25 The scribe's documentation has been prepared under my direction and personally reviewed by me in its entirety. I confirm that the note above accurately reflects all work, treatment, procedures, and medical decision making performed by me.
[2018-12-30] MEDS: INSULIN ASPART 100 UNITS/ML 3 ML PEN SC SCH (17:18)
[2018-12-30] MEDS: ATORVASTATIN 10 MG TAB PO SCH (20:39)
[2018-12-30 22:15] LABS: Appearance Urine Cloudy (Clear); Bacteria Urine Automated Negative (Negative); Bilirubin Urine Negative (Negative); Blood Urine Negative (Negative); Cast Urine Automated 0 /lpf (0-5); Color Urine Yellow; Epithelial Cell Urine Auto 0-5 /lpf (0-5); Glucose Urine UA Negative (Negative); Ketones Urine Negative (Negative); Leukocyte Esterase Urine Negative (Negative); Nitrite Urine Negative (Negative); Protein Urine Negative (Negative); RBC Urine Automated 0-4 /hpf (0-4); Specific Gravity Urine 1.019 (1.000-1.030); Urobilinogen Urine Negative (Negative); pH Urine 7.5 (4.5-7.5)
[2018-12-31] MEDS: INSULIN ASPART 100 UNITS/ML 3 ML PEN SC SCH ×5 (00:10→20:40)
[2018-12-31] MEDS: D5W AND LACTATED RINGERS 1,000 ML IV SCH ×4 (00:41→20:26)
[2018-12-31] MEDS: HEPARIN SOD 5,000 UNIT/0.5 ML VIAL SQ SCH ×3 (05:57→21:53)
[2018-12-31 06:59] LABS: Hematocrit (blood only) 32.4 % (42-52); Hemoglobin 10.6 g/dL (14.0-18.0); Mean Corpuscular Hemoglobin 27.5 pg (25-34); Mean Corpuscular Hgb Conc 32.7 g/dL (32-36); Mean Corpuscular Volume 84.2 fL (80-100); Mean Platelet Volume 10.4 fL (7.4-10.4); Platelet Count 167 K/uL (130-400); RDW Coefficient of Variation 15.5 % (11.5-14.5); Red Blood Count 3.85 M/uL (4.7-6.1); White Blood Count 6.59 K/uL (4.8-10.8)
[2018-12-31 07:44] LABS: Albumin Level 2.7 gm/dl (3.4-5.0); BUN Creatinine Ratio 10.5 (10-20); Calcium 8.8 mg/dl (8.5-10.1); Creatinine Clr Calc Pharmacy 45.3 ml/min; Est GFR (African American) 69.9; Est GFR (Non-African American) 60.3; Potassium 3.7 mmol/L (3.5-5.1)
[2018-12-31 07:58] LABS: Albumin Globulin Ratio 0.9 (0.9-2); Bilirubin,Total 1.1 mg/dl (0.2-1); Total Protein 5.7 gm/dl (6.4-8.2)
[2018-12-31] MEDS: ACETAMINOPHEN 1,000 MG/100 ML VIAL IV SCH ×3 (08:20→23:47)
[2018-12-31] MEDS ORDERED: LISINOPRIL 5 MG TAB PO SCH (09:00)
[2018-12-31] MEDS ORDERED: CHOLECALCIFEROL 1,000 UNITS TAB PO SCH (09:00)
[2018-12-31] MEDS: ASPIRIN 81 MG ECTAB PO SCH (09:57)
[2018-12-31] MEDS: MULTIVITAMIN TAB PO SCH (09:57)
[2018-12-31] MEDS: predniSONE 2.5 MG TAB PO SCH (09:58)
[2018-12-31] MEDS: METOPROLOL SUCC 25MG EXT REL TAB PO SCH (09:58)
[2018-12-31] MEDS: predniSONE 5 MG TAB PO SCH (09:58)
[2018-12-31] MEDS ORDERED: MAGNESIUM HYDROXIDE SUSP 30 ML UDC PO ONE (13:11)
--- NOTE | 2018-12-31 13:12 | Hospitalist Progress Note ---
Date of Service delayed entry date of service noted below December 31, 2018 Assessment & Plan (1) Acute pancreatitis: found to have lipase 20,[address] scan findings consistent with acute pancreatitis Liver profile: within normal limits T -- given IV fluids, placed on bowel rest -- abdominal pain resolved, Lipase down to 4000s -- KUB to r/o Ileus -- consult GI (2) CAD (coronary artery disease): -Appears stable, no reports of chest pain -Continue aspirin, statin, beta-melba (3) Hypertension: -BP controlled, continue metoprolol (4) DM type 2 (diabetes mellitus, type 2): -Hgb A1c 6.9 06/2018 -Hold oral agents and utilize NovoLog per protocol hospitalized (5) PMR (polymyalgia rheumatica): -Continue chronic dose of prednisone (6) DVT prophylaxis: -SQ heparin Subjective ff up for acute pancreatitis seen resting in bed, comfortable son at bedside states he feels better than previous day abdominal pain resolved no nausea/vomiting no chest pain, dyspnea, palpitations, dizziness no other symptoms Review of Systems Review of Systems: All systems reviewed & are unremarkable except as noted in HPI & below Physical Exam Physical Exam: General- oriented x 3, not in distress, speaks in sentences with no effort or accessory muscle use Head- atraumatic Eyes- PERRL, EOMI, anicteric ENT- oropharynx clear Neck- supple, no JVD, no adenopathy, no thyromegaly; carotids +2/2, no bruits appreciated Lungs- clear to auscultation bilaterally, no rales/wheezes Heart- normal rate, regular rhythm; no murmur, no gallop, no rub appreciated Abdomen- decreased bowel sounds, mildly distended, soft, nontender, no masses or hepatosplenomegaly Extremities- no pretibial edema, no calf tenderness; peripheral pulses intact Neuro- alert, oriented x 3; CN 2-12 grossly intact; motor 5/5 bilaterally;sensation 100% on all extremities; no other gross focal neurologic deficits Skin- warm & dry Results & Data Vital Signs (Past 12 Hours) Vital Signs Temp Pulse Resp BP Pulse Ox 12/31/18 07:27 36.6 C 69 16 127/65 95 12/31/18 04:14 37.1 C 71 19 156/79 H 91 Laboratory Results Laboratory Results - last 24 hr 12/31/18 01/01/19 01/01/19 20:24 07:36 09:32 WBC 7.21 RBC 3.90 L Hgb 10.6 L Hct 33.1 L MCV 84.9 MCH 27.2 MCHC 32.0 RDW Std Deviation 47.9 H RDW Coeff of Yobany 15.5 H Plt Count 153 MPV 9.9 Immature Gran % (Auto) 0.3 Neut % (Auto) 72.4 Lymph % (Auto) 14.1 [place] % (Auto) 5.4 Eos % (Auto) 7.4 Baso % (Auto) 0.4 Immature Gran # (Auto) 0.02 Neut # (Auto) 5.22 Lymph # (Auto) 1.02 L [place] # (Auto) 0.39 Eos # (Auto) 0.53 H Baso # (Auto) 0.03 Sodium Potassium Chloride Carbon Dioxide Anion Gap BUN Creatinine Est Cr Clr Drug Dosing Est GFR ( Amer) Est GFR (Non-Af Amer) BUN/Creatinine Ratio Glucose POC Glucose 80 108 H Calcium Total Bilirubin Direct Bilirubin AST ALT Alkaline Phosphatase Total Protein Albumin Lipase 01/01/19 01/01/19 01/01/19 09:32 12:03 16:24 WBC RBC Hgb Hct MCV MCH MCHC RDW Std Deviation RDW Coeff of Yobany Plt Count MPV Immature Gran % (Auto) Neut % (Auto) Lymph % (Auto) [place] % (Auto) Eos % (Auto) Baso % (Auto) Immature Gran # (Auto) Neut # (Auto) Lymph # (Auto) [place] # (Auto) Eos # (Auto) Baso # (Auto) Sodium 141 Potassium 3.8 Chloride 111 H Carbon Dioxide 25 Anion Gap 5.0 BUN 7 Creatinine 1.10 Est Cr Clr Drug Dosing 44.9 Est GFR ( Amer) 69.1 Est GFR (Non-Af Amer) 59.6 BUN/Creatinine Ratio 6.7 L Glucose 100 H POC Glucose 89 143 H Calcium 9.0 Total Bilirubin 0.9 Direct Bilirubin 0.3 H AST 17 ALT 16 Alkaline Phosphatase 49 Total Protein 5.9 L Albumin 2.8 L Lipase 1548 H
--- NOTE | 2018-12-31 13:28 | XRay Report ---
KUB CLINICAL HISTORY: Generalized abdominal pain. FINDINGS: 2 AP supine abdominal radiographs are correlated with abdominal CT dated 12/30/2018. There is a nonobstructed abdominal bowel gas pattern. Mild to moderate colonic fecal retention is observed. No evidence of intraperitoneal free air is seen on these supine images. Numerous parenchymal calcifi cations are again noted and consistent with chronic pancreatitis. The skeletal structures are osteope chelsi. There is moderate lumbosacral spondylosis as well as mild scoliosis. IMPRESSION: 1. Nonobstructed abdominal bowel gas pattern. 2. Numerous pancreatic calcifications are consistent with chronic pancreatitis. Findings of acute or chronic pancreatitis were better assessed on yesterday's CT scan. Electronically signed by: Brandon Bee M.D. 12/31/2018 1:27 PM
--- NOTE | 2018-12-31 14:57 | Consultation Report ---
DATE OF CONSULTATION: 12/31/2018 REASON FOR CONSULTATION: Acute pancreatitis. HISTORY OF PRESENT ILLNESS: The patient is an 88-year-old who presented yesterday with a 1 day history of worsening abdominal pain. Pain was intermittently initially and then became constant when he presented to the Emergency Room, his lipase was over 20,000 and he had a CAT scan that showed a lot of pancreatic edema. In addition, there were calcifications in the pancreas. Of note is that the patient has not had a diagnosis of acute pancreatitis or chronic pancreatitis for that matter in the past. He did say that he drank alcohol pretty much daily for about 10 years back in the 80s. He usually had a beer like 1-3 per day, but has not really had any significant alcohol in 30 years. When he was admitted, his CAT scan did not show any signs of gallstones or choledocholithiasis. His calcium was normal. His triglycerides in the past have not been elevated, but repeat is pending. He did start lisinopril 2 months ago for his kidneys but that is the only new medication other than metformin that he has been on. PAST MEDICAL HISTORY: Remarkable for polymyalgia rheumatica, coronary disease, status post AL in the past. He has also had an appendectomy, has hypertension, esophageal reflux, coronary disease, status post AL in 1983 and angioplasty of left anterior descending, diabetes, cataract surgery. MEDICATIONS: Per list. FAMILY HISTORY: Noncontributory. His father had a stroke. SOCIAL HISTORY: The patient is and lives with his . Former smoker, former alcohol, relatively heavily in the past for 10 years about 40 years ago, but none significantly in the last 30 years. REVIEW OF SYSTEMS: Positive just for his abdominal pain. The remainder is negative. PHYSICAL EXAMINATION: GENERAL: The patient appears awake, alert, in no acute distress. VITAL SIGNS: Normal. Blood pressure is 130/80, pulse is 70. LABORATORY DATA: Show white count of 10.2, hemoglobin 12.2, platelets 188, bilirubin is 1.3. AST, ALT and alkaline phosphatase are normal. Triglycerides have come back slightly elevated at 218, but not high enough to cause pancreatitis. 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 I recommend stopping this medication and substituting a non-RENETTA inhibitor and continue his IV fluids, bowel rest and will begin clear liquids today. Dr. Francisco Nicholson will be covering for me this weekend.
[2018-12-31] MEDS ORDERED: Nursing to Pharmacy Communication ONE (16:54)
[2018-12-31] MEDS: ATORVASTATIN 10 MG TAB PO SCH (20:27)
[2019-01-01] MEDS: D5W AND LACTATED RINGERS 1,000 ML IV SCH ×2 (02:49→09:49)
[2019-01-01] MEDS: HEPARIN SOD 5,000 UNIT/0.5 ML VIAL SQ SCH (05:53)
[2019-01-01] MEDS: INSULIN ASPART 100 UNITS/ML 3 ML PEN SC SCH ×2 (09:02→13:41)
[2019-01-01] MEDS: ACETAMINOPHEN 1,000 MG/100 ML VIAL IV SCH (09:03)
[2019-01-01] MEDS: ASPIRIN 81 MG ECTAB PO SCH (09:05)
[2019-01-01] MEDS: MULTIVITAMIN TAB PO SCH (09:06)
[2019-01-01] MEDS: predniSONE 5 MG TAB PO SCH (09:06)
[2019-01-01] MEDS: predniSONE 2.5 MG TAB PO SCH (09:06)
[2019-01-01] MEDS: METOPROLOL SUCC 25MG EXT REL TAB PO SCH (09:07)
[2019-01-01] MEDS ORDERED: AMLODIPINE BESYLATE 5 MG TAB PO SCH (09:30)
[2019-01-01 09:43] LABS: Basophils # (auto) 0.03 K/uL (0-0.2); Basophils % (auto) 0.4 %; Eosinophils # (auto) 0.53 K/uL (0-0.5); Eosinophils % (auto) 7.4 %; Hematocrit (blood only) 33.1 % (42-52); Hemoglobin 10.6 g/dL (14.0-18.0); Immature Granulocytes # (auto) 0.02 K/uL (0.00-0.02); Immature Granulocytes % (auto) 0.3 %; Lymphocytes # (auto) 1.02 K/uL (1.2-3.4); Lymphocytes % (auto) 14.1 %; Mean Corpuscular Hemoglobin 27.2 pg (25-34); Mean Corpuscular Volume 84.9 fL (80-100); Mean Platelet Volume 9.9 fL (7.4-10.4); Monocytes # (auto) 0.39 K/uL (0.11-0.59); Monocytes % (auto) 5.4 %; Neutrophils # (auto) 5.22 K/uL (1.4-6.5); Neutrophils % (auto) 72.4 %; Platelet Count 153 K/uL (130-400); RDW Coefficient of Variation 15.5 % (11.5-14.5); RDW Standard Deviation 47.9 fL (36.4-46.3); White Blood Count 7.21 K/uL (4.8-10.8)
[2019-01-01 10:10] LABS: Albumin Level 2.8 gm/dl (3.4-5.0); BUN Creatinine Ratio 6.7 (10-20); Bilirubin Direct 0.3 mg/dl (0-0.2); Creatinine Clr Calc Pharmacy 44.9 ml/min; Est GFR (African American) 69.1; Est GFR (Non-African American) 59.6; Potassium 3.8 mmol/L (3.5-5.1)
[2019-01-01 10:13] LABS: Bilirubin,Total 0.9 mg/dl (0.2-1); Total Protein 5.9 gm/dl (6.4-8.2)
--- NOTE | 2019-01-01 11:34 | Gastroenterology Progress Note ---
Date of Service January 01, 2019 Assessment & Plan (1) Acute pancreatitis: Given the rapid improvement in symptoms and relatively subtle changes of acute pancreatitis One has to consider cholelithiasis as a top differential for his symptoms. The story is consistent with passage of a gall stones or sludge, though LFT's were normal. As CT is not very sensitive in picking up sludge/stone would ask for a USG before he eats lunch. If there sludge he will benefit from a cholecystectomy down the road. I am less certain he had true pancreatitis at this point. Ok to DC IV fluids. if he tolerates lunch, he can be discharged. Present on Admission?: Yes Subjective Doing very well. No pain since PM. Was hungry yesterday, but only had clears. Pain came on Thursday after supper and got worse. After coming got better, with little discomfort yesterday. Physical Exam Cardiovascular: Rate/Rhythm: regular rate Heart Sounds: + murmur Gastrointestinal (Abdomen): normal bowel sounds, soft, nontender, no hepatosplenomegaly Musculoskeletal: Extremities: extremities normal to inspection Skin: no rashes, warm and dry normal turgor Results & Data Vital Signs (Past 12 Hours) Vital Signs Temp Pulse Resp BP Pulse Ox 01/01/19 07:37 36.9 C 63 20 149/77 H 95
--- NOTE | 2019-01-01 12:46 | Ultrasound Report ---
US gallbladder CLINICAL HISTORY: pancreatitis, r/o cholelithiasis COMPARISON STUDY: CT of the abdomen and pelvis December 30, 2018. FINDINGS: Small amount of perihepatic ascites is noted. Hepatic echogenicity is mildly increased. The gallbladder is mildly distended. There is sludge within the gallbladder. No gallstones are identifie d. No sonographic Mejia sign was reported. The gallbladder is mildly distended. There is no biliary ductal dilatation. No common bile duct calculi are identified by sonography. The pancreas is obscured . There is no right hydronephrosis. There is a 7 mm right renal calculus. IMPRESSION: 1. Sludge within the gallbladder. No gallstones identified. Mild gallbladder distention. No sonograph ic Mejia sign. 2. Obscured pancreas. 3. Small amount of perihepatic ascites. 4. No biliary ductal dilatation. 5. 7 mm right renal calculus. Electronically signed by: Sandeep Dinero M.D. 01/01/2019 12:45 PM
[2019-01-01] MEDS ORDERED: AMLODIPINE BESYLATE 5 MG TAB PO ONE (16:53)
--- NOTE | 2019-01-01 18:16 | Hospitalist Progress Note ---
Date of Service January 01, 2019 Assessment & Plan (1) Acute pancreatitis: found to have lipase 20,[address] scan findings consistent with acute pancreatitis Liver profile: within normal limits T -- given IV fluids, placed on bowel rest -- abdominal pain resolved, Lipase down to 1,500 -- KUB to r/o Ileus: negative -- gallbladder us: (+) gallbladder sludge -- consulted GI: recommend referral to General Surgery as outpatient for Cholecystectomy recommend to d/c Lisinopril as this can be contributory to acute pancreatitis -- tolerated solid foods well, abdominal pain resolved -- advised low fat diet, drink plenty of fluids -- ff up with PCP this week refer to General Surgeon for gallbladder sludge: possible cholecystectomy (2) CAD (coronary artery disease): -Appears stable, no reports of chest pain -Continue aspirin, statin, beta-melba (3) Hypertension: -BP controlled - change Lisinopril to Amlodipine 5mg po daily (per #1) - monitor BP on ff up with PCP (4) DM type 2 (diabetes mellitus, type 2): -Hgb A1c 6.9 06/2018 -continue Metformin (5) PMR (polymyalgia rheumatica): -Continue chronic dose of prednisone (6) DVT prophylaxis: -SQ heparin Disposition: ff up with PCP this week (Clinic to call patient) refer to General Surgeon for gallbladder sludge: possible cholecystectomy plan of care discussed with patient and his son in detail all questions answered they are comfortable, agreeable with the plan of care Subjective ff up for acute pancreatitis seen resting in bed, comfortable in good spirits tolerating solid food well denies abdominal pain, nausea, fever/chills (+) BMs no chest pain, dyspnea, palpitations states he feels much better overall, requesting discharge Review of Systems Review of Systems: All systems reviewed & are unremarkable except as noted in HPI & below Physical Exam Physical Exam: General- oriented x 3, not in distress, speaks in sentences with no effort or accessory muscle use Eyes- anicteric Neck- no JVD Lungs- clear breath sounds bilaterally, no rales/wheezes Heart- normal rate, regular rhythm; no murmurs Abdomen- normal bowel sounds, nondistended, soft, nontender Extremities- no pretibial edema, no calf tenderness Neuro- alert, oriented x 3; no gross focal neurologic deficits Skin- warm & dry Results & Data Vital Signs (Past 12 Hours) Vital Signs Temp Pulse Resp BP Pulse Ox 01/01/19 17:56 36.6 C 66 18 166/73 H 96 01/01/19 15:18 36.6 C 66 18 166/73 H 96 01/01/19 11:38 36.5 C 57 L 20 148/83 H 92 01/01/19 07:37 36.9 C 63 20 149/77 H 95 Laboratory Results Laboratory Results - last 24 hr 12/31/18 01/01/19 01/01/19 20:24 07:36 09:32 WBC 7.21 RBC 3.90 L Hgb 10.6 L Hct 33.1 L MCV 84.9 MCH 27.2 MCHC 32.0 RDW Std Deviation 47.9 H RDW Coeff of Yobany 15.5 H Plt Count 153 MPV 9.9 Immature Gran % (Auto) 0.3 Neut % (Auto) 72.4 Lymph % (Auto) 14.1 [place] % (Auto) 5.4 Eos % (Auto) 7.4 Baso % (Auto) 0.4 Immature Gran # (Auto) 0.02 Neut # (Auto) 5.22 Lymph # (Auto) 1.02 L [place] # (Auto) 0.39 Eos # (Auto) 0.53 H Baso # (Auto) 0.03 Sodium Potassium Chloride Carbon Dioxide Anion Gap BUN Creatinine Est Cr Clr Drug Dosing Est GFR ( Amer) Est GFR (Non-Af Amer) BUN/Creatinine Ratio Glucose POC Glucose 80 108 H Calcium Total Bilirubin Direct Bilirubin AST ALT Alkaline Phosphatase Total Protein Albumin Lipase 01/01/19 01/01/19 01/01/19 09:32 12:03 16:24 WBC RBC Hgb Hct MCV MCH MCHC RDW Std Deviation RDW Coeff of Yobany Plt Count MPV Immature Gran % (Auto) Neut % (Auto) Lymph % (Auto) [place] % (Auto) Eos % (Auto) Baso % (Auto) Immature Gran # (Auto) Neut # (Auto) Lymph # (Auto) [place] # (Auto) Eos # (Auto) Baso # (Auto) Sodium 141 Potassium 3.8 Chloride 111 H Carbon Dioxide 25 Anion Gap 5.0 BUN 7 Creatinine 1.10 Est Cr Clr Drug Dosing 44.9 Est GFR ( Amer) 69.1 Est GFR (Non-Af Amer) 59.6 BUN/Creatinine Ratio 6.7 L Glucose 100 H POC Glucose 89 143 H Calcium 9.0 Total Bilirubin 0.9 Direct Bilirubin 0.3 H AST 17 ALT 16 Alkaline Phosphatase 49 Total Protein 5.9 L Albumin 2.8 L Lipase 1548 H
--- NOTE | 2019-01-01 18:18 | Discharge Summary ---
Date of Service January 01, 2019 Admission HPI Per Admitting Provider Presents to the ED with abdominal pain. Patient reports intermittent abdominal pain over the past 1 week. Denies any specific causative or relieving factors. Last evening, he developed abdominal pain that did not go away. He then presented to the ER for further evaluation. Patient reports pain is localized to the mid abdomen and radiates to the lower and upper abdomen. This morning, he had some radiation of the pain into his back. He reports associated nausea however denies any vomiting. No diarrhea, bright red bleeding per rectum, dark tarry stools. Denies fevers and chills. No chest pain or shortness of breath. He denies lightheadedness, dizziness, diaphoresis, syncopal event. No urinary symptoms. Patient denies any new medications. No heavy alcohol use. In the ED, lipase is found to be 20,441. CT ABD/pelvis showing signs of acute pancreatitis. LFTs WNL. Patient is hemodynamically stable. He was given IVF, IV Zofran, IV Dilaudid. Admission Exam Per Admitting Provider Constitutional: WD/WN, vitals as above ENMT: external ear and nose normal, oropharynx normal Respiratory: normal respiratory effort, lungs clear to auscultation Cardiovascular: Rate/Rhythm: regular rate and regular rhythm Heart Sounds: + murmur (Grade 3/6, systolic) Vessels: normal peripheral pulses Extremities: no edema Gastrointestinal (Abdomen): Inspection/Auscultation: normal bowel sounds Percussion/Palpation: + abdomen tender (Generalized however more pronounced over the epigastric and LUQ) and abdomen soft; no hepatosplenomegaly Musculoskeletal: no cyanosis or clubbing, extremities motor strength 5/5 Skin: no rashes, warm and dry Neurologic: PERRL, EOMI, accommodation nl, no face palsy, no dysarthria Psychiatric: A+Ox3, euthymic affect Principal Diagnosis ACUTE PANCREATITIS, IN THE SETTING OF GALLBLADDER SLUDGE Discharge Exam General- oriented x 3, not in distress, speaks in sentences with no effort or accessory muscle use Head- atraumatic Eyes- PERRL, EOMI, anicteric ENT- oropharynx clear Neck- supple, no JVD, no adenopathy, no thyromegaly; carotids +2/2, no bruits appreciated Lungs- clear to auscultation bilaterally, no rales/wheezes Heart- normal rate, regular rhythm; no murmur, no gallop, no rub appreciated Abdomen- decreased bowel sounds, mildly distended, soft, nontender, no masses or hepatosplenomegaly Extremities- no pretibial edema, no calf tenderness; peripheral pulses intact Neuro- alert, oriented x 3; CN 2-12 grossly intact; motor 5/5 bilaterally;sensation 100% on all extremities; no other gross focal neurologic deficits Skin- warm & dry Discharge Data Allergies Allergy/AdvReac Type Severity Reaction Status Date / Time No Known Allergies Allergy Unverified 12/30/18 10:46 Consultations 12/30/18 12:07 ED Decision to Admit Stat 12/30/18 13:49 Consult Case Management - Discharge Planning Routine 12/31/18 13:55 Consult Gastroenterology Routine Ordered Studies 12/30/18 10:25 CT abd pelvis wo con Stat COMPARISON STUDY: Abdomen and pelvis CT 05/31/2016. F FINDINGS: Mild dependent changes seen within the lung bases. No pneumoperitoneum. No pneumatosis. No suspicious lytic are blastic osseous lesions. The unenhanced liver, spleen, and adrenal glands are unremarkable. Moderate perinephric edema which is nonspecific. Right-sided nephrolithiasis. No ureteral stones. No hydronephrosis. Normal bladder. Normal left kidney. The gallbladder is mildly distended. Multiple calcifications are again noted throughout the pancreas. There is diffuse peripancreatic inflammatory change and a small amount of fluid tracking along the right paracolic gutter. There is trace perihepatic ascites. Findings are consistent with acute on chronic pancreatitis. No loculated fluid collections identified on this noncontrast study. Aneurysmal dilatation of the infrarenal abdominal aorta measuring up to 4.3 cm in diameter. This has progressed in the interval. No retroperitoneal lymphadenopathy. No bowel wall thickening or obstruction. Colonic diverticulosis. No evidence for diverticulitis. IMPRESSION: 1. Acute on chronic pancreatitis. 2. Right-sided nephrolithiasis. No ureteral stones. No hydronephrosis. 3. Trace ascites. 4. Additional findings as described above. 01/01/19 11:39 US gallbladder FINDINGS: Small amount of perihepatic ascites is noted. Hepatic echogenicity is mildly increased. The gallbladder is mildly distended. There is sludge within the gallbladder. No gallstones are identified. No sonographic Mejia sign was reported. The gallbladder is mildly distended. There is no biliary ductal dilatation. No common bile duct calculi are identified by sonography. The pancreas is obscured. There is no right hydronephrosis. There is a 7 mm right renal calculus. IMPRESSION: 1. Sludge within the gallbladder. No gallstones identified. Mild gallbladder distention. No sonographic Mejia sign. 2. Obscured pancreas. 3. Small amount of perihepatic ascites. 4. No biliary ductal dilatation. 5. 7 mm right renal calculus. Hospital Course (1) Acute pancreatitis: found to have lipase 20,[address] scan findings consistent with acute pancreatitis Liver profile: within normal limits T -- KUB to r/o Ileus: negative -- gallbladder us: (+) gallbladder sludge -- given IV fluids, placed on bowel rest -- abdominal pain resolved, Lipase down to 1,500 -- consulted GI Dr. Bryan/Dr. Singh: recommend referral to General Surgery as outpatient for Cholecystectomy recommend to d/c Lisinopril as this can be contributory to acute pancreatitis -- tolerated solid foods well, abdominal pain resolved -- advised low fat diet, drink plenty of fluids -- ff up with PCP this week refer to General Surgeon for gallbladder sludge: possible cholecystectomy (2) CAD (coronary artery disease): -Appears stable, no reports of chest pain -Continue aspirin, statin, beta-melba (3) Abdominal aortic aneurysm (AAA): CT abdomen: Aneurysmal dilatation of the infrarenal abdominal aorta measuring up to 4.3 cm in diameter. This has progressed in the interval. COMPARISON STUDY: Abdomen and pelvis CT 05/31/2016. - monitor and ff up as outpatient (4) Hypertension: -BP controlled - change Lisinopril to Amlodipine 5mg po daily (per #1) - monitor BP on ff up with PCP (5) DM type 2 (diabetes mellitus, type 2): -Hgb A1c 6.9 06/2018 -continue Metformin (6) PMR (polymyalgia rheumatica): -Continue chronic dose of prednisone (7) DVT prophylaxis: -SQ heparin Disposition: ff up with PCP this week (Clinic to call patient) refer to General Surgeon for gallbladder sludge: possible cholecystectomy plan of care discussed with patient and his son in detail all questions answered they are comfortable, agreeable with the plan of care Total Time Total Time Spent Total Time Spent (In Minutes): 45 minutes Discharge Plan Discharge Items Patient Disposition: Home - Self-Care Reason For Visit: PANCREATITIS Discharge Diagnosis: ACUTE PANCREATITIS Activity: As commented below Activity Comment: RESUME ACTIVITY GRADUALLY TOLERATED Lifting: Wait until after follow-up appointment Exercise/Sports: Wait until after follow-up appointment Driving/Machine Use: NO DRIVING UNTIL RE-EVALUATION BY PRIMARY CARE PHYSICIAN Non-emergency contact: Primary Care Provider Call non-emergency contact if: you have any medication questions Follow-up/Referrals: Noel Thapa MD [Primary Care Provider] - Diet: Heart Healthy and Low Fat Addtl Attending Provider Instructions: AVOID FATTY, GREASY FOOD. DRINK PLENTY OF WATER EVERY DAY: 6-8 GLASSES OF WATER A DAY. RETURN TO THE ER IMMEDIATELY IF WITH RECURRENCE OR WORSENING OF SYMPTOMS, ABDOMINAL PAIN ,NAUSEA/VOMITING, FEVER/CHILLS. Pending Studies at Discharge: Yes Studies:: REFERRAL TO GENERAL SURGEON FOR EVALUATION OF GALLBLADDER WITH SLUDGE Stand-Alone Forms: My [facility], Smoking Cessation Medications and DC Order Prescriptions: New amlodipine 5 mg tablet 5 mg PO DAILY Qty: 30 RF: 2 Continued aspirin 81 mg tablet,delayed release (DR/EC) 81 mg PO DAILY RF: 0 atorvastatin 10 mg tablet 10 mg PO QPM RF: 0 multivitamin tablet 1 tab PO DAILY RF: 0 nitroglycerin 0.4 mg tablet, sublingual 0.4 mg SL Q5M PRN (Reason: Chest Pain) RF: 0 prednisone 5 mg tablet 5 mg PO DAILY RF: 0 prednisone 2.5 mg tablet 2.5 mg PO DAILY RF: 0 metformin 500 mg tablet extended release 24 hr 500 mg PO DAILY RF: 0 cholecalciferol (vitamin D3) 1,000 unit Capsule 1,000 unit PO DAILY RF: 0 Systane (PF) 0.4-0.3 % Dropperette 1 drp OPHTHALMIC (EYE) BID PRN (Reason: Dry Eyes) RF: 0 omega 2-ixe-jif-fish oil [Fish Oil] 1,000 mg (120 mg-180 mg) Capsule 1 cap PO BID RF: 0 lutein 20 mg Tablet 20 mg PO DAILY RF: 0 metoprolol succinate 25 mg tablet extended release 24 hr 25 mg PO DAILY RF: 0 Changed polyethylene glycol 3350 [Miralax] 17 gram Powder In Packet 17 g PO DAILY Qty: 0 RF: 0 Discontinued lisinopril 5 mg tablet 5 mg PO DAILY RF: 0 Discharge Orders: Discharge Order (Routine); Ordered 01/01/19 Ordered By: Brad Boyce Admission Data Admit Date/Time: 12/30/18 12:48 Attending Provider: Brad Boyce Admit Provider: Cora Barry Primary Care Provider: Noel Thapa Other Providers: Cora Barry ; Abner Bryan Other Interventions: Discharge Summary Assessment (RN) Last Done: 01/01/19 17:56
[2019-01-01] MEDS ORDERED: HEPARIN SOD 5,000 UNIT/0.5 ML VIAL SQ SCH (21:00)
== END 2019-01-01 19:16 | disposition home or self-care (01) | DRG 440 ==
LOC: ED 10:09 → SUATTDRO 12:48 → 2W 12:48

== ENCOUNTER 2019-12-04 18:04 | Observation (INO) ==
[2019-12-04] MEDS ORDERED: fentaNYL citrate 100 MCG/2 ML VIAL IV STA (19:06)
[2019-12-04] MEDS ORDERED: ONDANSETRON INJ 2 MG/ML 2 ML VIAL IV STA (19:06)
[2019-12-04] MEDS ORDERED: SODIUM CHLORIDE 0.9% 1000ML 1,000 ML IV SCH (19:15)
[2019-12-04] MEDS ORDERED: ACETAMINOPHEN 1,000 MG/100 ML VIAL IV STA (19:15)
[2019-12-04 20:27] LABS: Basophils # (auto) 0.03 K/uL (0-0.2); Basophils % (auto) 0.4 %; Eosinophils # (auto) 0.24 K/uL (0-0.5); Eosinophils % (auto) 3.3 %; Hematocrit (blood only) 37.7 % (42-52); Hemoglobin 12.1 g/dL (14.0-18.0); Immature Granulocytes # (auto) 0.02 K/uL (0.00-0.02); Immature Granulocytes % (auto) 0.3 %; Lymphocytes # (auto) 0.93 K/uL (1.2-3.4); Lymphocytes % (auto) 12.7 %; Mean Corpuscular Hemoglobin 26.8 pg (25-34); Mean Corpuscular Hgb Conc 32.1 g/dL (32-36); Mean Corpuscular Volume 83.4 fL (80-100); Mean Platelet Volume 10.3 fL (7.4-10.4); Monocytes # (auto) 0.58 K/uL (0.11-0.59); Monocytes % (auto) 7.9 %; Neutrophils # (auto) 5.55 K/uL (1.4-6.5); Neutrophils % (auto) 75.4 %; Platelet Count 182 K/uL (130-400); RDW Coefficient of Variation 16.1 % (11.5-14.5); RDW Standard Deviation 49.1 fL (36.4-46.3); Red Blood Count 4.52 M/uL (4.7-6.1); White Blood Count 7.35 K/uL (4.8-10.8)
[2019-12-04 20:36] LABS: Prothrombin Time 10.4 Seconds (9.0-12.0)
[2019-12-04 20:45] LABS: Alanine Aminotransferase 28 U/L (12-78); Albumin Level 3.3 gm/dl (3.4-5.0); Aspartate Aminotransferase 23 U/L (15-37); BUN Creatinine Ratio 11.8 (10-20); Blood Urea Nitrogen 17 mg/dl (7-18); Calcium 9.9 mg/dl (8.5-10.1); Carbon Dioxide 25 mmol/L (21-32); Chloride 105 mmol/L (98-107); Est GFR (African American) 50.4; Est GFR (Non-African American) 43.5; Glucose 109 mg/dl (70-99); Potassium 3.6 mmol/L (3.5-5.1); Sodium 140 mmol/L (136-145)
[2019-12-04 20:50] LABS: Albumin Globulin Ratio 0.9 (0.9-2); Alkaline Phosphatase 71 U/L (45-117); Bilirubin,Total 1.1 mg/dl (0.2-1); Globulin 3.5 gm/dl (2.5-4.0); Total Protein 6.8 gm/dl (6.4-8.2); Troponin I 0.019 ng/ml (0-0.045)
[2019-12-04 21:01] LABS: Influenza A virus by PCR Neg for Influ A (Neg); Influenza B virus by PCR Neg for Influ B (Neg)
[2019-12-04] MEDS ORDERED: IOVERSOL 100ml IV ONE (21:47)
[2019-12-04] MEDS ORDERED: cefTRIAXone SODIUM 1,000 MG/50 ML BAG IV STA (21:59)
[2019-12-04 22:05] LABS: Appearance Urine Clear (Clear); Bacteria Urine Automated Negative (Negative); Bilirubin Urine Negative (Negative); Blood Urine Negative (Negative); Color Urine Yellow; Glucose Urine UA Negative (Negative); Ketones Urine Negative (Negative); Leukocyte Esterase Urine Trace (Negative); Nitrite Urine Negative (Negative); Protein Urine Negative (Negative); RBC Urine Automated 0-4 /hpf (0-4); Specific Gravity Urine 1.016 (1.000-1.030); Urobilinogen Urine Negative (Negative); pH Urine 5.5 (4.5-7.5)
[2019-12-04] MEDS ORDERED: AMLODIPINE BESYLATE 5 MG TAB PO STA (23:12)
[2019-12-04] MEDS ORDERED: TRAMADOL HCL 50 MG TABLET PO PRN (23:27)
[2019-12-04] MEDS ORDERED: HYDROmorphone INJ 0.5 MG/0.5 ML SYR IV PRN (23:27)
[2019-12-04] MEDS ORDERED: LIDOCAINE 5% 1 PATCH TD STA (23:35)
--- NOTE | 2019-12-04 23:35 | Emergency Department Note ---
History of Present Illness General Chief complaint: Fall Stated complaint: FALL, RIGHT SIDED RIB PAIN, HAND PAIN Time Seen by Provider: 12/04/19 18:58 Source: patient, family and RN notes reviewed Mode of arrival: ambulatory Limitations: no limitations History of Present Illness Provider complaint: Right-sided rib pain, bilateral wrist/hand pain Maximum Pain Intensity: 5 This patient is an 89-year-old male who presents emergency department after falling 2 days ago. Patient apparently was pulled to the ground by his dog injuring the bilateral wrists and right anterior ribs. Patient son states he did not know about the incident until today. Patient was taken to the urgent care clinic by his neighbor and referred to the emergency department for further evaluation. Patient is found to be febrile upon arrival but had no knowledge. He denies any significant cough or shortness of breath but does admit to severe pain in the right ribs. He denies any vomiting or diarrhea. He denies any blood in the stools. Patient does have a laceration to the right palmar surface of the hand. Home Medications Home Medications Medication Instructions Recorded Confirmed Type aspirin 81 mg tablet,delayed 81 mg PO 12/24/18 12/04/19 History release multivitamin 1 tab PO QAM 12/24/18 12/04/19 History nitroglycerin 0.4 mg sublingual 0.4 mg SL Q5M PRN 12/24/18 12/04/19 History tablet Systane (PF) 1 drp OPB BID PRN 12/30/18 12/04/19 History cholecalciferol (vitamin D3) 1,000 unit PO QAM 12/30/18 12/04/19 History lutein 20 mg PO QAM 12/30/18 12/04/19 History metformin 500 mg PO QAM 12/30/18 12/04/19 History metoprolol succinate 25 mg PO QAM 12/30/18 12/04/19 History omega [id number]-fish oil [Fish Oil] 1 cap PO BID 12/30/18 12/04/19 History prednisone 2.5 mg PO QAM 12/30/18 12/04/19 History prednisone 5 mg PO QAM 12/30/18 12/04/19 History amlodipine 5 mg PO QAM 12/04/19 12/04/19 History atorvastatin 10 mg PO HS 12/04/19 12/04/19 History polyethylene glycol 3350 [Miralax] 17 g PO DAILY PRN 12/04/19 12/04/19 History lidocaine 1 patch TRANSDERMAL HS #7 ea 12/05/19 Rx Allergies Allergy/AdvReac Type Severity Reaction Status Date / Time No Known Drug Allergies Allergy Verified 09/15/19 15:19 Past Med/Surg History Medical History CAD (coronary artery disease) 1993-IA, S/P PTCA to LAD DM type 2 (diabetes mellitus, type 2) Dyslipidemia GERD (gastroesophageal reflux disease) Hypertension PMR (polymyalgia rheumatica) Surgical History History of appendectomy History of cataract surgery Family History Father Stroke Social History Smoking Status: Former smoker Tobacco Type: Cigarettes Second Hand Exposure: No; Do You Dip or Chew Tobacco: No; Hx Alcohol Use: Yes Alcohol type: beer Hx Substance Use: No Preferred Language: German Communication Ability: Effective Pediatric Care Coordinator Required: No Beliefs That Will Affect Care: None marital status: Current Living Situation: Spouse How many Children do You have: 4 Other Information That Helps Us Care for You: No Feels Safe at Home: Yes Safety Concerns: Feels Safe At This Time Assistive Devices: Glasses Review of Systems See HPI for pertinent positives & negatives. and A total of 10 systems reviewed and were otherwise negative Physical Exam Vital Signs Vital Signs - 24 hr 12/04/19 18:34 12/04/19 19:23 12/04/19 19:30 Temperature 38.3 C H Temperature Source Oral Pulse Rate 77 88 70 Pulse Rate from SpO2 Sensor 82 70 Pulse Rhythm Regular Pulse Strength Normal Respiratory Rate 18 20 14 Respiratory Effort / Characteristics Non-Labored Spontaneous Respiratory Depth Normal Respiratory Pattern Regular Blood Pressure 148/88 H Blood Pressure Mean 108 Blood Pressure Position Sitting Pulse Oximetry 95 94 95 Oxygen Delivery Method Room Air Sepsis Recent Fever Within 48 Hours No Sepsis New/Unexplained Change in Mental Status N/A Sepsis Action Taken by Nursing No Action Required 12/04/19 19:55 12/04/19 19:56 12/04/19 20:00 Temperature Temperature Source Pulse Rate 70 70 70 Pulse Rate from SpO2 Sensor 69 70 Pulse Rhythm Pulse Strength Respiratory Rate 19 20 24 Respiratory Effort / Characteristics Respiratory Depth Respiratory Pattern Blood Pressure 165/93 H 155/89 H Blood Pressure Mean 122 111 Blood Pressure Position Pulse Oximetry 95 95 95 Oxygen Delivery Method Room Air Sepsis Recent Fever Within 48 Hours Sepsis New/Unexplained Change in Mental Status Sepsis Action Taken by Nursing 12/04/19 20:30 12/04/19 21:00 12/04/19 21:26 Temperature 36.4 C L Temperature Source Oral Pulse Rate 61 60 Pulse Rate from SpO2 Sensor 62 60 Pulse Rhythm Pulse Strength Respiratory Rate 18 19 Respiratory Effort / Characteristics Respiratory Depth Respiratory Pattern Blood Pressure 168/86 H 145/81 H Blood Pressure Mean 98 99 Blood Pressure Position Pulse Oximetry 94 94 Oxygen Delivery Method Sepsis Recent Fever Within 48 Hours Sepsis New/Unexplained Change in Mental Status Sepsis Action Taken by Nursing 12/04/19 21:30 12/04/19 21:31 12/04/19 22:00 Temperature Temperature Source Pulse Rate 65 77 62 Pulse Rate from SpO2 Sensor 80 61 Pulse Rhythm Pulse Strength Respiratory Rate 17 23 22 Respiratory Effort / Characteristics Respiratory Depth Respiratory Pattern Blood Pressure 139/86 Blood Pressure Mean 95 Blood Pressure Position Pulse Oximetry 94 94 Oxygen Delivery Method Sepsis Recent Fever Within 48 Hours Sepsis New/Unexplained Change in Mental Status Sepsis Action Taken by Nursing 12/04/19 22:01 12/04/19 22:30 Temperature Temperature Source Pulse Rate 66 57 L Pulse Rate from SpO2 Sensor 61 58 L Pulse Rhythm Pulse Strength Respiratory Rate 21 20 Respiratory Effort / Characteristics Respiratory Depth Respiratory Pattern Blood Pressure 182/101 H 163/95 H Blood Pressure Mean 122 106 Blood Pressure Position Pulse Oximetry 94 94 Oxygen Delivery Method Sepsis Recent Fever Within 48 Hours Sepsis New/Unexplained Change in Mental Status Sepsis Action Taken by Nursing Vital signs reviewed. General: Well-appearing 89 yo male, in some discomfort. HEENT: No scleral icterus, PERRLA, neck supple. Atraumatic. Hard of hearing Cardiovascular: Regular rate and rhythm, no extra sounds. Pulmonary: Clear to auscultation bilaterally, normal work of breathing. Abdomen: Soft, nontender, nondistended, positive bowel sounds. Musculoskeletal: Ecchymosis to the bilateral wrists to mid forearms, mild swelling and tenderness, but no point tenderness. R hand has a V shaped laceration of approximately 2 cm. Well approximated. Tender to palpation over anterior R ribs and R abd. Neurologic: Patient awake alert and oriented x 3 Skin: Warm, dry, trauma as above Course Administered Medications Discontinued Medications Acetaminophen (Acetaminophen 325 Mg Tab) 650 mg PO Q4H PRN PRN Reason: Pain or Fever Stop: 01/04/20 01:17 Last Admin: 12/05/19 12:07 Dose: 650 mg Documented by: [id number] Admin: 12/05/19 08:15 Dose: 650 mg Documented by: [id number] Amlodipine Besylate (Amlodipine Besylate 5 Mg Tab) 5 mg PO NOW STA Stop: 12/04/19 23:13 Last Admin: 12/04/19 23:53 Dose: 5 mg Documented by: [id number] Amlodipine Besylate (Amlodipine Besylate 5 Mg Tab) 5 mg PO QAM ANKIT Stop: 01/04/20 08:59 Last Admin: 12/05/19 08:14 Dose: 5 mg Documented by: [id number] Fentanyl Citrate (Fentanyl Citrate 100 Mcg/2 Ml Vial) 25 mcg IV NOW STA Stop: 12/04/19 19:07 Last Admin: 12/04/19 20:00 Dose: 25 mcg Documented by: [id number] Sodium Chloride (Nss 1000ml) 1,000 mls @ 100 mls/hr IV .Q10H ANKIT Stop: 12/05/19 05:14 Last Infusion: 12/05/19 06:05 Dose: 0 mls/hr Documented by: [id number] Admin: 12/04/19 19:58 Dose: 100 mls/hr Documented by: [id number] Acetaminophen (Ofirmev) 1,000 mg in 100 mls @ 400 mls/hr IV NOW STA Stop: 12/04/19 19:29 Last Infusion: 12/04/19 20:39 Dose: 0 mls/hr Documented by: [id number] Admin: 12/04/19 19:59 Dose: 400 mls/hr Documented by: [id number] Ceftriaxone Sodium (Rocephin) 1,000 mg in 50 mls @ 100 mls/hr IV NOW STA Stop: 12/04/19 22:28 Last Infusion: 12/05/19 06:06 Dose: 0 mls/hr Documented by: [id number] Admin: 12/04/19 22:33 Dose: 100 mls/hr Documented by: [id number] Lactated Ringer's (Lr) 1,000 mls @ 60 mls/hr IV .[id number] ONE Stop: 12/05/19 17:57 Last Infusion: 12/05/19 13:49 Dose: 60 mls/hr Documented by: [id number] Admin: 12/05/19 01:44 Dose: 60 mls/hr Documented by: [id number] Insulin Aspart (Insulin Aspart 100 Units/Ml 3 Ml Pen) 0 units SC ACHS ANKIT Stop: 01/04/20 01:17 Last Admin: 12/05/19 12:11 Dose: Not Given Documented by: [id number] Cosigned by: [id number] Admin: 12/05/19 08:22 Dose: 1 units Documented by: [id number] Cosigned by: [id number] Admin: 12/05/19 02:20 Dose: Not Given Documented by: [id number] Cosigned by: [id number] Ioversol (Ioversol 100ml) 93 ml IV ONCE ONE Stop: 12/04/19 21:48 Last Admin: 12/04/19 21:47 Dose: 93 ml Documented by: [id number] Lidocaine (Lidocaine 5% 1 Patch) 1 patch TD ONE STA Stop: 12/04/19 23:36 Last Admin: 12/04/19 23:53 Dose: 1 patch Documented by: [id number] Metoprolol Succinate (Metoprolol Succ 25mg Ext Rel Tab) 25 mg PO [facility] Stop: 01/04/20 08:59 Last Admin: 12/05/19 08:14 Dose: 25 mg Documented by: [id number] Miscellaneous (Remove Lidoderm Patch) 1 ea N/A [facility] Stop: 01/04/20 09:59 Last Admin: 12/05/19 10:26 Dose: 1 ea Documented by: [id number] Multivitamins (Multivitamin Tab) 1 tab PO [facility] Stop: 01/04/20 08:59 Last Admin: 12/05/19 08:13 Dose: 1 tab Documented by: [id number] Ondansetron HCl (Ondansetron Inj 2 Mg/Ml 2 Ml Vial) 4 mg IV NOW STA Stop: 12/04/19 19:07 Last Admin: 12/04/19 19:58 Dose: 4 mg Documented by: [id number] Potassium Chloride (Potassium Chloride 20 Meq/15 Ml Udc) 40 meq PO ONE ONE Stop: 12/05/19 09:01 Last Admin: 09/28/20 09:45 Dose: 40 meq Documented by: [id number] Prednisone (Prednisone 5 Mg Tab) 5 mg PO [facility] Stop: 01/04/20 08:59 Last Admin: 12/05/19 08:14 Dose: 5 mg Documented by: [id number] Prednisone (Prednisone 2.5 Mg Tab) 2.5 mg PO [facility] Stop: 01/04/20 08:59 Last Admin: 12/05/19 08:14 Dose: 2.5 mg Documented by: [id number] Medical Decision Making Differential Diagnosis DDx: Intracranial injury, cervical spine injury, intrathoracic injury, intra- abdominal injury, musculoskeletal injury. Medical Records Attestation: I reviewed the patient's medical records. Home Medications Current Medication List: was personally reviewed by me Laboratory Data Attestation: I reviewed the patient's lab results. Result diagrams: 12/05/19 06:57 12/05/19 06:57 Lab Results 12/04/19 12/04/19 12/04/19 Range/Units 20:08 20:08 20:08 WBC 7.35 (4.8-10.8) K/uL RBC 4.52 L (4.7-6.1) M/uL Hgb 12.1 L (14.0-18.0) g/dL Hct 37.7 L (42-52) % MCV 83.4 (80-100) fL MCH 26.8 (25-34) pg MCHC 32.1 (32-36) g/dL RDW Std Deviation 49.1 H (36.4-46.3) fL RDW Coeff of Yobany 16.1 H (11.5-14.5) % Plt Count 182 (130-400) K/uL MPV 10.3 (7.4-10.4) fL Immature Gran % (Auto) 0.3 % Neut % (Auto) 75.4 % Lymph % (Auto) 12.7 % Fannin % (Auto) 7.9 % Eos % (Auto) 3.3 % Baso % (Auto) 0.4 % Neut # (Auto) 5.55 (1.4-6.5) K/uL Lymph # (Auto) 0.93 L (1.2-3.4) K/uL Fannin # (Auto) 0.58 (0.11-0.59) K/uL Eos # (Auto) 0.24 (0-0.5) K/uL Baso # (Auto) 0.03 (0-0.2) K/uL Immature Gran # (Auto) 0.02 (0.00-0.02) K/uL PT 10.4 (9.0-12.0) Seconds INR 1.0 (0.9-1.1) Sodium 140 (136-145) mmol/L Potassium 3.6 (3.5-5.1) mmol/L Chloride 105 (98-107) mmol/L Carbon Dioxide 25 (21-32) mmol/L Anion Gap 10.0 (3-11) BUN 17 (7-18) mg/dl Creatinine 1.42 H (0.6-1.4) mg/dl Est Cr Clr Drug Dosing Not Reportable Est GFR ( Amer) 50.4 Est GFR (Non-Af Amer) 43.5 BUN/Creatinine Ratio 11.8 (10-20) Glucose 109 H (70-99) mg/dl Calcium 9.9 (8.5-10.1) mg/dl Magnesium 2.2 (1.8-2.4) mg/dl Total Bilirubin 1.1 H (0.2-1) mg/dl AST 23 (15-37) U/L ALT 28 (12-78) U/L Alkaline Phosphatase 71 (45-117) U/L Total Creatine Kinase 64 (39-308) U/L Troponin I 0.019 (0-0.045) ng/ml Total Protein 6.8 (6.4-8.2) gm/dl Albumin 3.3 L (3.4-5.0) gm/dl Globulin 3.5 (2.5-4.0) gm/dl Albumin/Globulin Ratio 0.9 (0.9-2) TSH 2.930 (0.300-4.500) uIu/ml Urine Color Urine Appearance (Clear) Urine pH (4.5-7.5) Ur Specific Agar (1.000-1.030) Urine Protein (Negative) Urine Glucose (UA) (Negative) Urine Ketones (Negative) Urine Blood (Negative) Urine Nitrite (Negative) Urine Bilirubin (Negative) Urine Urobilinogen (Negative) Ur Leukocyte Esterase (Negative) Urine WBC (Auto) (0-5) /hpf Urine RBC (Auto) (0-4) /hpf U Hyaline Cast (Auto) (0-5) /lpf U Epithel Cells (Auto) (0-5) /lpf Urine Bacteria (Auto) (Negative) COVID-19 Eval Order COVID-19 PCR (Negative) Influenza Type A (PCR) (Neg) Influenza Type B (PCR) (Neg) 12/04/19 12/04/19 12/04/19 Range/Units 20:08 20:08 20:08 WBC (4.8-10.8) K/uL RBC (4.7-6.1) M/uL Hgb (14.0-18.0) g/dL Hct (42-52) % MCV (80-100) fL MCH (25-34) pg MCHC (32-36) g/dL RDW Std Deviation (36.4-46.3) fL RDW Coeff of Yobany (11.5-14.5) % Plt Count (130-400) K/uL MPV (7.4-10.4) fL Immature Gran % (Auto) % Neut % (Auto) % Lymph % (Auto) % Fannin % (Auto) % Eos % (Auto) % Baso % (Auto) % Neut # (Auto) (1.4-6.5) K/uL Lymph # (Auto) (1.2-3.4) K/uL Fannin # (Auto) (0.11-0.59) K/uL Eos # (Auto) (0-0.5) K/uL Baso # (Auto) (0-0.2) K/uL Immature Gran # (Auto) (0.00-0.02) K/uL PT (9.0-12.0) Seconds INR (0.9-1.1) Sodium (136-145) mmol/L Potassium (3.5-5.1) mmol/L Chloride (98-107) mmol/L Carbon Dioxide (21-32) mmol/L Anion Gap (3-11) BUN (7-18) mg/dl Creatinine (0.6-1.4) mg/dl Est Cr Clr Drug Dosing Est GFR ( Amer) Est GFR (Non-Af Amer) BUN/Creatinine Ratio (10-20) Glucose (70-99) mg/dl Calcium (8.5-10.1) mg/dl Magnesium (1.8-2.4) mg/dl Total Bilirubin (0.2-1) mg/dl AST (15-37) U/L ALT (12-78) U/L Alkaline Phosphatase (45-117) U/L Total Creatine Kinase (39-308) U/L Troponin I (0-0.045) ng/ml Total Protein (6.4-8.2) gm/dl Albumin (3.4-5.0) gm/dl Globulin (2.5-4.0) gm/dl Albumin/Globulin Ratio (0.9-2) TSH (0.300-4.500) uIu/ml Urine Color Urine Appearance (Clear) Urine pH (4.5-7.5) Ur Specific Agar (1.000-1.030) Urine Protein (Negative) Urine Glucose (UA) (Negative) Urine Ketones (Negative) Urine Blood (Negative) Urine Nitrite (Negative) Urine Bilirubin (Negative) Urine Urobilinogen (Negative) Ur Leukocyte Esterase (Negative) Urine WBC (Auto) (0-5) /hpf Urine RBC (Auto) (0-4) /hpf U Hyaline Cast (Auto) (0-5) /lpf U Epithel Cells (Auto) (0-5) /lpf Urine Bacteria (Auto) (Negative) COVID-19 Eval Order Covid19 Done at [facility] COVID-19 PCR NEGATIVE (Negative) Influenza Type A (PCR) Neg for Influ A (Neg) Influenza Type B (PCR) Neg for Influ B (Neg) 12/04/19 Range/Units 21:35 WBC (4.8-10.8) K/uL RBC (4.7-6.1) M/uL Hgb (14.0-18.0) g/dL Hct (42-52) % MCV (80-100) fL MCH (25-34) pg MCHC (32-36) g/dL RDW Std Deviation (36.4-46.3) fL RDW Coeff of Yobany (11.5-14.5) % Plt Count (130-400) K/uL MPV (7.4-10.4) fL Immature Gran % (Auto) % Neut % (Auto) % Lymph % (Auto) % Fannin % (Auto) % Eos % (Auto) % Baso % (Auto) % Neut # (Auto) (1.4-6.5) K/uL Lymph # (Auto) (1.2-3.4) K/uL Fannin # (Auto) (0.11-0.59) K/uL Eos # (Auto) (0-0.5) K/uL Baso # (Auto) (0-0.2) K/uL Immature Gran # (Auto) (0.00-0.02) K/uL PT (9.0-12.0) Seconds INR (0.9-1.1) Sodium (136-145) mmol/L Potassium (3.5-5.1) mmol/L Chloride (98-107) mmol/L Carbon Dioxide (21-32) mmol/L Anion Gap (3-11) BUN (7-18) mg/dl Creatinine (0.6-1.4) mg/dl Est Cr Clr Drug Dosing Est GFR ( Amer) Est GFR (Non-Af Amer) BUN/Creatinine Ratio (10-20) Glucose (70-99) mg/dl Calcium (8.5-10.1) mg/dl Magnesium (1.8-2.4) mg/dl Total Bilirubin (0.2-1) mg/dl AST (15-37) U/L ALT (12-78) U/L Alkaline Phosphatase (45-117) U/L Total Creatine Kinase (39-308) U/L Troponin I (0-0.045) ng/ml Total Protein (6.4-8.2) gm/dl Albumin (3.4-5.0) gm/dl Globulin (2.5-4.0) gm/dl Albumin/Globulin Ratio (0.9-2) TSH (0.300-4.500) uIu/ml Urine Color Yellow Urine Appearance Clear (Clear) Urine pH 5.5 (4.5-7.5) Ur Specific Agar 1.016 (1.000-1.030) Urine Protein Negative (Negative) Urine Glucose (UA) Negative (Negative) Urine Ketones Negative (Negative) Urine Blood Negative (Negative) Urine Nitrite Negative (Negative) Urine Bilirubin Negative (Negative) Urine Urobilinogen Negative (Negative) Ur Leukocyte Esterase Trace H (Negative) Urine WBC (Auto) 1-5 (0-5) /hpf Urine RBC (Auto) 0-4 (0-4) /hpf U Hyaline Cast (Auto) 1-5 (0-5) /lpf U Epithel Cells (Auto) 5-10 H (0-5) /lpf Urine Bacteria (Auto) Negative (Negative) COVID-19 Eval Order COVID-19 PCR (Negative) Influenza Type A (PCR) (Neg) Influenza Type B (PCR) (Neg) Imaging Data Radiologist's Impression: HEAD CT NONCONTRAST CT DOSE: HISTORY: trauma TECHNIQUE: Multiaxial CT images of the head were performed without the use of intravenous contrast. Automated exposure control was utilized for this study. A dose lowering technique was utilized adhering to the principles of ALARA. Comparison: None. Findings: The paranasal sinuses and mastoid air cells are clear. The calvarium and skull base are intact. There is no mass, hematoma, midline shift, acute infarct. White matter hypodensity is nonspecific but suggestive of microvascular ischemic change. The ventricles and sulci demonstrate mild age-related involutional changes. Impression: No acute intracranial abnormality. Atrophy and microvascular ischemic changes. ACT 112: Negative or not required by law. Electronically signed by: Rick Rodriguez M.D. 12/05/2019 7:[address] OF THE CHEST WITH IV CONTRAST CLINICAL HISTORY: trauma COMPARISON STUDY: Chest radiograph December 30, 2018. TECHNIQUE: Following IV administration of 93 mL of Optiray-320, helical axial images of the chest were obtained. Sagittal and coronal reconstructions were viewed as well as maximal intensity projections on an independent 3-D workstation. Automated exposure control was utilized for the study. A dose lowering technique was utilized adhering to the principles of ALARA. FINDINGS: There is no evidence for traumatic injury to the thoracic aorta. Moderate coronary calcification is noted. Moderate cardiomegaly. Is no pericardial effusion. No enlarged thoracic lymph nodes are present. There is no mediastinal hematoma. No pneumothorax or pleural effusion is noted. Groundglass opacities reflect atelectasis. There is no pulmonary contusion. There is an age indeterminate nondisplaced fracture the anterior right seventh rib. Calcifications within visualized portions of the pancreas suggest chronic pancreatitis. Atrophy of the pancreatic tail is unchanged since prior abdominal CT. IMPRESSION: 1. Age indeterminate nondisplaced fracture of the anterior right seventh rib. No pneumothorax. 2. No evidence for traumatic injury to the thoracic aorta. 3. Moderate coronary artery calcification and cardiomegaly. 4. Evidence for chronic pancreatitis, partially imaged on this exam. ACT 112: Negative or not required by law. Electronically signed by: Sandeep Dinero M.D. 12/05/2019 9:32 AM Dictated: 12/05/19922 Transcribed: 12/05/19922 CT SCAN OF THE ABDOMEN AND PELVIS WITH IV CONTRAST CLINICAL HISTORY: Trauma. COMPARISON STUDY: Abdominal CT dated 12/30/2018. TECHNIQUE: Following the IV administration of 93 cc of Optiray 320, CT scan of the abdomen and pelvis is performed from the lung bases to the proximal femora. Images are reviewed in the axial, sagittal, and coronal planes. IV contrast was administered without complication. A dose lowering technique was utilized adhering to the principles of ALARA. CT DOSE: 1645.49 mGy.cm FINDINGS: Lung bases: The heart is normal in size and without pericardial effusion. There are coronary artery calcifications. The lung bases are clear noting bibasilar scarring/atelectasis. There is a small hiatal hernia. Liver: The contrast-enhanced liver is normal in size, contour, and attenuation. There is no intrahepatic biliary ductal dilatation. The hepatic veins and portal veins are patent. Gallbladder: Unremarkable. Spleen: Normal in size and attenuation. Pancreas: The pancreas is atrophic. Numerous glandular calcifications are consistent with chronic pancreatitis. Adrenal glands: Unremarkable. Kidneys: The contrast enhanced kidneys are atrophic and without hydronephrosis. The kidneys enhance symmetrically. A 9 mm nonobstructing calculus is seen in the right lower pole. A subcentimeter cortical hypodensity in the interpolar right kidney likely represents a cyst but is too small for definitive characterization. Abdominal vasculature: There is advanced atherosclerotic calcification of the a bdominal aorta. A bilobed fusiform aneurysm of the infrarenal abdominal aorta measures 3.7 x 4.7 cm (AP x transverse). 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 There is ectasia of the left common iliac artery which measures up to 1.7 cm. Bowel: There is no bowel obstruction. There is mild colonic diverticulosis without CT evidence of acute diverticulitis. The appendix is not identified and reported surgically absent. Peritoneum: There is no intraperitoneal free air or abdominal ascites. Lymphadenopathy: None. Pelvic viscera: The prostate gland is diminutive and heterogeneous. The bladder is normal as visualized. A small fat-containing inguinal hernia is noted on the right. Skeletal structures: The skeletal structures are osteopenic. There are acute fractures of the right anterior 7th through 9th ribs. There is moderate lumbosacral spondylosis and scoliosis. No lytic or blastic lesions are seen. IMPRESSION: 1. There is no evidence of solid organ injury in the abdomen or pelvis. 2. Acute right anterior rib fractures as above. 3. There is a 3.7 x 4.7 cm infrarenal abdominal aortic aneurysm. 4. Right-sided nephrolithiasis. 5. Mild colonic diverticulosis without CT evidence of acute diverticulitis. 6. There is evidence of chronic pancreatitis. 7. Mild colonic diverticulosis without CT evidence of acute diverticulitis. 8. Additional findings as above. ACT 112: Negative or not required by law. Electronically signed by: Brandon Bee M.D. 12/05/2019 8:40 AM Dictated: 12/05/19831 Transcribed: 12/05/19831 LEFT WRIST 4 VIEWS CLINICAL HISTORY: Fall. Left wrist injury. FINDINGS: 4 views of the left wrist are obtained. No prior studies are available for comparison at the time of dictation. The skeletal structures are osteopenic. No fracture is seen. Degenerative narrowing is seen at the radiocarpal articulation there is arthritic change at the distal radioulnar joint. Moderate to advanced osteoarthritic change is seen at the first carpometacarpal articulation where there is bony overgrowth, sclerosis, and mild subluxation. Mild osteoarthritic change is also seen at the first metacarpophalangeal and interphalangeal joints. Soft tissue edema is noted around the wrist. IMPRESSION: 1. Soft tissue edema with no radiographic evidence of acute fracture. 2. Osteopenia and degenerative change as above. Electronically signed by: Brandon Bee M.D. 12/05/2019 9:04 AM Dictated: 12/05/19901 Transcribed: 12/05/19901 RIGHT WRIST 4 VIEWS CLINICAL HISTORY: Fall. Right wrist injury. FINDINGS: 4 views of the right wrist are obtained. No prior studies are available for comparison at the time of dictation. The skeletal structures are osteopenic. No fracture is seen. There is degenerative narrowing at the radiocarpal articulation. Osteoarthritic change is seen in the distal radioulnar joint. There is moderate to advanced osteoarthritic change seen at the first c arpometacarpal articulation with bony overgrowth, sclerosis, and mild subluxation. Osteoarthritic change is seen involving the first through third metacarpophalangeal joints and the visualized interphalangeal joints. 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 Mild soft tissue swelling is present throughout the hand. An IV catheter is in place. IMPRESSION: 1. Soft tissue swelling with no fracture identified. 2. Osteopenia and arthritic change as above. Electronically signed by: Brandon Bee M.D. 12/05/2019 7:33 AM Dictated: 12/05/19730 Transcribed: 12/05/19730 ECG Data Attestation: I personally reviewed and interpreted this ECG as follows: Indication: + other (trauma) Rate (beats per minute): 70 Rhythm: + other (possible ectopic atrial rhythm) ECG Intervals/blocks: + Normal QT-c ECG ST segments: + Nonspecific ST abnormalities ECG Findings: + PVCs and + Other (P waves flipped) Blood Pressure Blood Pressure Findings: Elevated blood pressure Blood Pressure Disposition: further management by hospitalist MDM Narrative This pt was evaluated and appeared to be in no distress. IV access was obtained and lab work was drawn. An order for cardiac monitoring was placed and the pt was found to be in a SR at 70 bpm. Pt was hydrated with NSS and medicated with IV fentanyl 25 mcg, 4 mg IV zofran. He was given 1gm IV tylenol for fever of uncertain etiology. CT imaging was performed and reveals a R 7th rib fx, no wrist fx bilaterally. Abd/pelvis are negative. Head CT is negative. UA is neg for infection. R hand lac is too old for suture repair. It was cleansed and d ressed by nursing. Pt and son were made aware of the findings and plan. He was given 1 gm IV ceftriaxone as etiology of fever is unclear. Pt was d/w Dr. Canales of the hospitalist service for further management. Impression & Plan Closed rib fracture, Fall, Contusion of wrist, left, Contusion of right wrist, Laceration of hand, right, Fever Discharge Plan Visit Data Chief Complaint: Fall Stated Complaint: FALL, RIGHT SIDED RIB PAIN, HAND PAIN ED Provider: Julia Palma Discharge Problem: Closed rib fracture, Fall, Contusion of wrist, left, Contusion of right wrist, Laceration of hand, right, Fever Patient Disposition: Admitted As Inpatient Discharge Instructions Interventions: ED Discharge Assessment Last Done: 12/05/19 00:45 Discharge Problem: Closed rib fracture Qualifiers: Encounter type: initial encounter Rib fracture type: single rib Laterality: right Qualified Code(s): S22.31XA - Fracture of one rib, right side, initial encounter for closed fracture Fall Qualifiers: Encounter type: initial encounter Qualified Code(s): W19.XXXA - Unspecified fall, initial encounter Contusion of wrist, left Qualifiers: Encounter type: initial encounter Qualified Code(s): S60.212A - Contusion of left wrist, initial encounter Contusion of right wrist Qualifiers: Encounter type: initial encounter Qualified Code(s): S60.211A - Contusion of right wrist, initial encounter Laceration of hand, right Qualifiers: Encounter type: initial encounter Foreign body presence: without foreign body Qualified Code(s): S61.411A - Laceration without foreign body of right hand, initial encounter Fever Qualifiers: Fever type: unspecified Qualified Code(s): R50.9 - Fever, unspecified
[2019-12-04 23:41] LABS: Creatine Kinase 64 U/L (39-308); Magnesium 2.2 mg/dl (1.8-2.4)
--- NOTE | 2019-12-04 23:54 | History & Physical Report ---
Date of Service December 04, 2019 Assessment & Plan (1) Asymptomatic hypertensive urgency: Secondary to traumatic rib fracture right CAD status post angioplasty hx diastolic dysfunction as per records, patient on the dry side ARF on CKD moderate aortic stenosis (TTE 2019) hyperlipidemia on statin Rx AAA 4.[address] of initial CT read DM 2 diet-controlled, well-controlled as of recent outpatient hemoglobin A1c of 6.14 October 2019 chronic anemia secondary to CKD, hemoglobin at baseline PMR on chronic steroid therapy Asymptomatic pyuria past tobacco abuse OBS Medical telemetry Analgesia, Lidoderm patch trial Facilitate home BP meds, may need dose titration Monitor creatinine response to IVF Follow urine cultures, hold off on antibiotics for now Outpatient vascular surgery referral for AAA ISS BG goal [id number] PT OT eval DVT prophylaxis. SCDs RE ecchymotic wrists secondary to fall Full code Patient son requesting updates from providers. Mr. Won Ham, contact #[phone]. Text document was generated using [email or web address] voice recognition software. It may contain grammatical or spelling errors. Kindly contact undersigned for clarification of any documentation item in question. History of Present Illness Chief Complaint: Right-sided chest pain Primary Care Provider: Noel Thapa MD History obtained from patient, family, and records. Medical history significant for CAD status post angioplasty, diastolic dysfunction as per records, moderate aortic stenosis (TTE 2019), hypertension, hyperlipidemia, AAA, DM 2 diet-controlled, CRI (baseline creatinine 1.3), chronic anemia (baseline hemoglobin 11-12), PMR on chronic steroid therapy, past tobacco abuse. Last confinement December 2018 for acute pancreatitis attributed to biliary sludge. Patient pulled down by his Labrador dog to be last night causing patient to hit the concrete ground chest down. No head trauma or LOC. Pleuritic right-sided chest pain without cough symptoms. Bruising on both wrists. Poor appetite level daily. No abdominal pain, diarrhea, dysuria symptoms. Patient brought to the ER by son for evaluation. Low-grade fever noted at the ER. Patient given ceftriaxone at the ER. Medical History as above Surgical History : Cataract surgeries, appendectomy Family History : Stroke, heart disease, macular degeneration Personal/Social history : Past tobacco abuse, occasional EtOH intake, retired [employer] employee, lives with Allergies Allergy/AdvReac Type Severity Reaction Status Date / Time No Known Drug Allergies Allergy Verified 09/15/19 15:19 Home Medications Home Medications Medication Instructions Recorded Confirmed Type aspirin 81 mg tablet,delayed 81 mg PO HS 12/24/18 12/04/19 History release multivitamin 1 tab PO QAM 12/24/18 12/04/19 History nitroglycerin 0.4 mg sublingual 0.4 mg SL Q5M PRN 12/24/18 12/04/19 History tablet Systane (PF) 1 drp OPB BID PRN 12/30/18 12/04/19 History cholecalciferol (vitamin D3) 1,000 unit PO QAM 12/30/18 12/04/19 History lutein 20 mg PO QAM 12/30/18 12/04/19 History metformin 500 mg PO QAM 12/30/18 12/04/19 History metoprolol succinate 25 mg PO QAM 12/30/18 12/04/19 History omega 6-vdf-qwm-fish oil [Fish Oil] 1 cap PO BID 12/30/18 12/04/19 History prednisone 2.5 mg PO QAM 12/30/18 12/04/19 History prednisone 5 mg PO QAM 12/30/18 12/04/19 History amlodipine 5 mg PO QAM 12/04/19 12/04/19 History atorvastatin 10 mg PO HS 12/04/19 12/04/19 History polyethylene glycol 3350 [Miralax] 17 g PO DAILY PRN 12/04/19 12/04/19 History Past Med/Surg History Medical History CAD (coronary artery disease) 1993-DE, S/P PTCA to LAD DM type 2 (diabetes mellitus, type 2) Dyslipidemia GERD (gastroesophageal reflux disease) Hypertension PMR (polymyalgia rheumatica) Surgical History History of appendectomy History of cataract surgery Family History Father Stroke Social History Smoking Status: Former smoker Tobacco Type: Cigarettes Second Hand Exposure: No; Do You Dip or Chew Tobacco: No; Hx Alcohol Use: Yes Alcohol type: beer Hx Substance Use: No Preferred Language: Cuban Communication Ability: Effective [employer] Former Required: No Beliefs That Will Affect Care: None marital status: Current Living Situation: Spouse How many Children do You have: 4 Other Information That Helps Us Care for You: No Feels Safe at Home: Yes Safety Concerns: Feels Safe At This Time Assistive Devices: None Review of Systems Review of Systems: As per HPI, all 10 systems reviewed, all other ROS negative Physical Exam Physical Exam: GENERAL: Comfortable, slightly hard of hearing, no respiratory distress SKIN: Pallor , warm HEENT: Pale palpebral conjunctivae, no ptosis, dry buccal mucosa NECK : Supple, no tenderness CHEST : CTA, right anterior chest wall tenderness HEART : RRR, systolic murmur ABDOMEN: Some distention, nontender EXTREMITIES : No LE swelling/tenderness, bruising/ecchymoses on both wri sts/hands NEUROLOGIC : Coherent, no facial asymmetry, mild hearing impairment, gait and stance not assessed Results & Data Results & Data ([facility]) Vital Signs (Past 12 Hours) Vital Signs Temp Pulse Resp BP Pulse Ox 12/04/19 22:30 57 L 20 163/95 H 94 12/04/19 22:01 66 21 182/101 H 94 12/04/19 22:00 62 22 94 12/04/19 21:31 77 23 139/86 94 12/04/19 21:30 65 17 12/04/19 21:26 36.4 C L 12/04/19 21:00 60 19 145/81 H 94 12/04/19 20:30 61 18 168/86 H 94 12/04/19 20:00 70 24 155/89 H 95 12/04/19 19:56 70 20 95 12/04/19 19:55 70 19 165/93 H 95 12/04/19 19:30 70 14 95 12/04/19 19:23 88 20 94 12/04/19 18:34 38.3 C H 77 18 148/88 H 95 Laboratory Results Laboratory Results WBC 7.35 K/uL (4.8-10.8) 12/04/19 20:08 RBC 4.52 M/uL (4.7-6.1) L 12/04/19 20:08 Hgb 12.1 g/dL (14.0-18.0) L 12/04/19 20:08 Hct 37.7 % (42-52) L 12/04/19 20:08 MCV 83.4 fL (80-100) 12/04/19 20:08 MCH 26.8 pg (25-34) 12/04/19 20: MCHC 32.1 g/dL (32-36) 12/04/19 20:08 RDW Std Deviation 49.1 fL (36.4-46.3) H 12/04/19 20: RDW Coeff of Yobany 16.1 % (11.5-14.5) H 12/04/19 20:08 Plt Count 182 K/uL (130-400) 12/04/19 20:08 MPV 10.3 fL (7.4-10.4) 12/04/19: Immature Gran % (Auto) 0.3 % 12/04/19: Neut % (Auto) 75.4 % 12/04/19 20: Lymph % (Auto) 12.7 % 12/04/19 20: [place] % (Auto) 7.9 % 12/04/19: Eos % (Auto) 3.3 % 12/04/19 20: Baso % (Auto) 0.4 % 12/04/19 20: Neut # (Auto) 5.55 K/uL (1.4-6.5) 12/04/19 20: Lymph # (Auto) 0.93 K/uL (1.2-3.4) L 12/04/19 20:08 [place] # (Auto) 0.58 K/uL (0.11-0.59) 12/04/19 20:08 Eos # (Auto) 0.24 K/uL (0-0.5) 12/04/19 20:08 Baso # (Auto) 0.03 K/uL (0-0.2) 12/04/19 20:08 Immature Gran # (Auto) 0.02 K/uL (0.00-0.02) 12/04/19 20: PT 10.4 Seconds (9.0-12.0) 12/04/19 20: INR 1.0 (0.9-1.1) 12/04/19 20:08 Sodium 140 mmol/L (136-145) 12/04/19 20:08 Potassium 3.6 mmol/L (3.5-5.1) 12/04/19 20:08 Chloride 105 mmol/L (98-107) 12/04/19 20:08 Carbon Dioxide 25 mmol/L (21-32) 12/04/19 20:08 Anion Gap 10.0 (3-11) 12/04/19 20:08 BUN 17 mg/dl (7-18) 12/04/19 20:08 Creatinine 1.42 mg/dl (0.6-1.4) H 12/04/19 20:08 Est Cr Clr Drug Dosing Not Reportable 12/04/19 20:08 Est GFR ( Amer) 50.4 12/04/19 20:08 Est GFR (Non-Af Amer) 43.5 12/04/19 20:08 BUN/Creatinine Ratio 11.8 (10-20) 12/04/19 20:08 Glucose 109 mg/dl (70-99) H 12/04/19 20:08 Calcium 9.9 mg/dl (8.5-10.1) 12/04/19 20:08 Magnesium 2.2 mg/dl (1.8-2.4) 12/04/19 20:08 Total Bilirubin 1.1 mg/dl (0.2-1) H 12/04/19 20:08 AST 23 U/L (15-37) 12/04/19 20:08 ALT 28 U/L (12-78) 12/04/19 20:08 Alkaline Phosphatase 71 U/L (45-117) 12/04/19 20:08 Total Creatine Kinase 64 U/L (39-308) 12/04/19 20:08 Troponin I 0.019 ng/ml (0-0.045) 12/04/19 20:08 Total Protein 6.8 gm/dl (6.4-8.2) 12/04/19 20:08 Albumin 3.3 gm/dl (3.4-5.0) L 12/04/19 20:08 Globulin 3.5 gm/dl (2.5-4.0) 12/04/19 20:08 Albumin/Globulin Ratio 0.9 (0.9-2) 12/04/19 20:08 TSH 2.930 uIu/ml (0.300-4.500) 12/04/19 20:08 Urine Color Yellow 12/04/19 21:35 Urine Appearance Clear (Clear) 12/04/19 21:35 Urine pH 5.5 (4.5-7.5) 12/04/19 21:35 Ur Specific [place] 1.016 (1.000-1.030) 12/04/19 21:35 Urine Protein Negative (Negative) 12/04/19 21:35 Urine Glucose (UA) Negative (Negative) 12/04/19 21:35 Urine Ketones Negative (Negative) 12/04/19 21:35 Urine Blood Negative (Negative) 12/04/19 21:35 Urine Nitrite Negative (Negative) 12/04/19 21:35 Urine Bilirubin Negative (Negative) 12/04/19 21:35 Urine Urobilinogen Negative (Negative) 12/04/19 21:35 Ur Leukocyte Esterase Trace (Negative) H 12/04/19 21:35 Urine WBC (Auto) 1-5 /hpf (0-5) 12/04/19 21:35 Urine RBC (Auto) 0-4 /hpf (0-4) 12/04/19 21:35 U Hyaline Cast (Auto) 1-5 /lpf (0-5) 12/04/19 21:35 U Epithel Cells (Auto) 5-10 /lpf (0-5) H 12/04/19 21:35 Urine Bacteria (Auto) Negative (Negative) 12/04/19 21:35 COVID-19 Eval Order Covid19 Done at [facility] 12/04/19 20:08 COVID-19 PCR NEGATIVE (Negative) 12/04/19 20:08 Influenza Type A (PCR) Neg for Influ A (Neg) 12/04/19 20:08 Influenza Type B (PCR) Neg for Influ B (Neg) 12/04/19 20:[address] head initial read: No calvarial fracture or intracranial hemorrhage. Generalized atrophy, chronic small vessel ischemic disease, ventriculomegaly. CT chest initial read: No mediastinal hematoma. No aortic injury. No airspace opacities. No pleural effusion or pneumothorax. Age-indeterminate nondisplaced fracture anterior right seventh rib. Old fractures of the left anterior third and fourth ribs. CT abdomen pelvis with contrast: No solid organ injury. Aneurysmal dilatation of infrarenal abdominal aorta measuring up to 4.7 cm. 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 Multiple pancreatic ossifications sequela pancreatitis. Right nephrolithiasis. No hydronephrosis. Levoscoliosis. EKG as per my interpretation rate 70, NSR, normal axis, T wave abnormalities inferior leads, PVCs
[2019-12-05] MEDS ORDERED: DEXTROSE 50% 50 ML SYRINGE IV PRN (01:18)
[2019-12-05] MEDS ORDERED: PROMETHAZINE HCL 12.5 MG in SODIUM CHLORIDE 0.9% 50 ML IV PRN (01:18)
[2019-12-05] MEDS ORDERED: POLYETHYLENE (MIRALAX) 17 GM PACK PO PRN (01:18)
[2019-12-05] MEDS ORDERED: GLUCAGON FOR INJ 1 MG VIAL SQ PRN (01:18)
[2019-12-05] MEDS ORDERED: CARBOHYDRATES FOR HYPOGLYCEMIA PO PRN (01:18)
[2019-12-05] MEDS ORDERED: LACTATED RINGER'S 1,000 ML IV ONE (01:18)
[2019-12-05] MEDS ORDERED: GLUCOSE 40% GEL 15 GM TUBE PO PRN (01:18)
[2019-12-05] MEDS ORDERED: GLUCOSE 10 TABS/TUBE PO PRN (01:18)
[2019-12-05] MEDS ORDERED: ARTIFICIAL TEARS OP PRN (01:25)
[2019-12-05 01:47] LABS: Lyme Ab IgG w/WB Rflx Negative (Negative); Lyme Ab IgM w/WB Rflx Negative (Negative)
[2019-12-05] MEDS: INSULIN ASPART 100 UNITS/ML 3 ML PEN SC SCH ×3 (02:20→12:11)
--- NOTE | 2019-12-05 07:11 | CT Scan Report ---
HEAD CT NONCONTRAST CT DOSE: HISTORY: trauma TECHNIQUE: Multiaxial CT images of the head were performed without the use of intravenous contrast. A utomated exposure control was utilized for this study. A dose lowering technique was utilized adheri ng to the principles of ALARA. Comparison: None. Findings: The paranasal sinuses and mastoid air cells are clear. The calvarium and skull base are int act. There is no mass, hematoma, midline shift, acute infarct. White matter hypodensity is nonspecifi c but suggestive of microvascular ischemic change. The ventricles and sulci demonstrate mild age-rela neal involutional changes. Impression: No acute intracranial abnormality. Atrophy and microvascular ischemic changes. ACT 112: Negative or not required by law. Electronically signed by: Rick Rodriguez M.D. 12/05/2019 7:09 AM
--- NOTE | 2019-12-05 07:34 | XRay Report ---
RIGHT WRIST 4 VIEWS CLINICAL HISTORY: Fall. Right wrist injury. FINDINGS: 4 views of the right wrist are obtained. No prior studies are available for comparison at t he time of dictation. The skeletal structures are osteopenic. No fracture is seen. There is degenerat faizan narrowing at the radiocarpal articulation. Osteoarthritic change is seen in the distal radioulnar joint. There is moderate to advanced osteoarthritic change seen at the first carpometacarpal articul ation with bony overgrowth, sclerosis, and mild subluxation. Osteoarthritic change is seen involving the first through third metacarpophalangeal joints and the visualized interphalangeal joints. Mild er osive osteoarthritis is noted involving several of the interphalangeal joints. Mild soft tissue swell ing is present throughout the hand. An IV catheter is in place. IMPRESSION: 1. Soft tissue swelling with no fracture identified. 2. Osteopenia and arthritic change as above. Electronically signed by: Brandon Bee M.D. 12/05/2019 7:33 AM
[2019-12-05 07:48] LABS: Basophils # (auto) 0.02 K/uL (0-0.2); Basophils % (auto) 0.4 %; Eosinophils # (auto) 0.19 K/uL (0-0.5); Eosinophils % (auto) 3.5 %; Hematocrit (blood only) 33.9 % (42-52); Hemoglobin 11.1 g/dL (14.0-18.0); Immature Granulocytes # (auto) 0.02 K/uL (0.00-0.02); Immature Granulocytes % (auto) 0.4 %; Lymphocytes # (auto) 0.72 K/uL (1.2-3.4); Lymphocytes % (auto) 13.2 %; Mean Corpuscular Hgb Conc 32.7 g/dL (32-36); Mean Corpuscular Volume 82.5 fL (80-100); Mean Platelet Volume 10.2 fL (7.4-10.4); Monocytes # (auto) 0.43 K/uL (0.11-0.59); Monocytes % (auto) 7.9 %; Neutrophils # (auto) 4.06 K/uL (1.4-6.5); Neutrophils % (auto) 74.6 %; Platelet Count 153 K/uL (130-400); RDW Coefficient of Variation 16.3 % (11.5-14.5); RDW Standard Deviation 49.5 fL (36.4-46.3); Red Blood Count 4.11 M/uL (4.7-6.1); White Blood Count 5.44 K/uL (4.8-10.8)
[2019-12-05 08:11] LABS: BUN Creatinine Ratio 12.2 (10-20); Calcium 9.5 mg/dl (8.5-10.1); Creatinine Clr Calc Pharmacy 39.8 ml/min; Est GFR (Non-African American) 54.4; Potassium 3.4 mmol/L (3.5-5.1)
[2019-12-05] MEDS: ACETAMINOPHEN 325 MG TAB PO PRN ×2 (08:15→12:07)
--- NOTE | 2019-12-05 08:41 | CT Scan Report ---
CT SCAN OF THE ABDOMEN AND PELVIS WITH IV CONTRAST CLINICAL HISTORY: Trauma. COMPARISON STUDY: Abdominal CT dated 12/30/2018. TECHNIQUE: Following the IV administration of 93 cc of Optiray 320, CT scan of the abdomen and pelvi s is performed from the lung bases to the proximal femora. Images are reviewed in the axial, sagittal , and coronal planes. IV contrast was administered without complication. A dose lowering technique wa s utilized adhering to the principles of ALARA. CT DOSE: 1645.49 mGy.cm FINDINGS: Lung bases: The heart is normal in size and without pericardial effusion. There are coronary artery c alcifications. The lung bases are clear noting bibasilar scarring/atelectasis. There is a small hiata l hernia. Liver: The contrast-enhanced liver is normal in size, contour, and attenuation. There is no intrahepa tic biliary ductal dilatation. The hepatic veins and portal veins are patent. Gallbladder: Unremarkable. Spleen: Normal in size and attenuation. Pancreas: The pancreas is atrophic. Numerous glandular calcifications are consistent with chronic maldonado creatitis. Adrenal glands: Unremarkable. Kidneys: The contrast enhanced kidneys are atrophic and without hydronephrosis. The kidneys enhance s ymmetrically. A 9 mm nonobstructing calculus is seen in the right lower pole. A subcentimeter cortica l hypodensity in the interpolar right kidney likely represents a cyst but is too small for definitive characterization. Abdominal vasculature: There is advanced atherosclerotic calcification of the abdominal aorta. A bilo bed fusiform aneurysm of the infrarenal abdominal aorta measures 3.7 x 4.7 cm (AP x transverse). 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 There is ectasia of the left common iliac artery which measures up to 1.7 cm. Bowel: There is no bowel obstruction. There is mild colonic diverticulosis without CT evidence of acu te diverticulitis. The appendix is not identified and reported surgically absent. Peritoneum: There is no intraperitoneal free air or abdominal ascites. Lymphadenopathy: None. Pelvic viscera: The prostate gland is diminutive and heterogeneous. The bladder is normal as visualiz ed. A small fat-containing inguinal hernia is noted on the right. Skeletal structures: The skeletal structures are osteopenic. There are acute fractures of the right a nterior 7th through 9th ribs. There is moderate lumbosacral spondylosis and scoliosis. No lytic or bl astic lesions are seen. IMPRESSION: 1. There is no evidence of solid organ injury in the abdomen or pelvis. 2. Acute right anterior rib fractures as above. 3. There is a 3.7 x 4.7 cm infrarenal abdominal aortic aneurysm. 4. Right-sided nephrolithiasis. 5. Mild colonic diverticulosis without CT evidence of acute diverticulitis. 6. There is evidence of chronic pancreatitis. 7. Mild colonic diverticulosis without CT evidence of acute diverticulitis. 8. Additional findings as above. ACT 112: Negative or not required by law. Electronically signed by: Brandon Bee M.D. 12/05/2019 8:40 AM
[2019-12-05] MEDS ORDERED: METOPROLOL SUCC 25MG EXT REL TAB PO SCH (09:00)
[2019-12-05] MEDS ORDERED: AMLODIPINE BESYLATE 5 MG TAB PO SCH (09:00)
[2019-12-05] MEDS ORDERED: predniSONE 2.5 MG TAB PO SCH (09:00)
[2019-12-05] MEDS ORDERED: predniSONE 5 MG TAB PO SCH (09:00)
[2019-12-05] MEDS ORDERED: POTASSIUM CHLORIDE 20 MEQ/15 ML UDC PO ONE (09:00)
[2019-12-05] MEDS ORDERED: MULTIVITAMIN TAB PO SCH (09:00)
--- NOTE | 2019-12-05 09:05 | XRay Report ---
LEFT WRIST 4 VIEWS CLINICAL HISTORY: Fall. Left wrist injury. FINDINGS: 4 views of the left wrist are obtained. No prior studies are available for comparison at th e time of dictation. The skeletal structures are osteopenic. No fracture is seen. Degenerative narrow ing is seen at the radiocarpal articulation there is arthritic change at the distal radioulnar joint. Moderate to advanced osteoarthritic change is seen at the first carpometacarpal articulation where t here is bony overgrowth, sclerosis, and mild subluxation. Mild osteoarthritic change is also seen at the first metacarpophalangeal and interphalangeal joints. Soft tissue edema is noted around the wrist . IMPRESSION: 1. Soft tissue edema with no radiographic evidence of acute fracture. 2. Osteopenia and degenerative change as above. Electronically signed by: Brandon Bee M.D. 12/05/2019 9:04 AM
--- NOTE | 2019-12-05 09:34 | CT Scan Report ---
CT OF THE CHEST WITH IV CONTRAST CLINICAL HISTORY: trauma COMPARISON STUDY: Chest radiograph December 30, 2018. TECHNIQUE: Following IV administration of 93 mL of Optiray-320, helical axial images of the chest we re obtained. Sagittal and coronal reconstructions were viewed as well as maximal intensity projectio ns on an independent 3-D workstation. Automated exposure control was utilized for the study. A dose lowering technique was utilized adhering to the principles of ALARA. FINDINGS: There is no evidence for traumatic injury to the thoracic aorta. Moderate coronary calcifi cation is noted. Moderate cardiomegaly. Is no pericardial effusion. No enlarged thoracic lymph nodes are present. There is no mediastinal hematoma. No pneumothorax or pleural effusion is noted. Groundgl ass opacities reflect atelectasis. There is no pulmonary contusion. There is an age indeterminate non displaced fracture the anterior right seventh rib. Calcifications within visualized portions of the p ancreas suggest chronic pancreatitis. Atrophy of the pancreatic tail is unchanged since prior abdomin al CT. IMPRESSION: 1. Age indeterminate nondisplaced fracture of the anterior right seventh rib. No pneumothorax. 2. No evidence for traumatic injury to the thoracic aorta. 3. Moderate coronary artery calcification and cardiomegaly. 4. Evidence for chronic pancreatitis, partially imaged on this exam. ACT 112: Negative or not required by law. Electronically signed by: Sandeep Dinero M.D. 12/05/2019 9:32 AM
--- NOTE | 2019-12-05 15:39 | Hospitalist Progress Note ---
Date of Service December 05, 2019 Assessment & Plan (1) Asymptomatic hypertensive urgency: Traumatic mechanical fall Nondisplaced anterior right seventh rib fracture --CT chest: Age indeterminate nondisplaced fracture of the anterior right seventh rib. No pneumothorax. No evidence for traumatic injury to the thoracic aorta. Moderate coronary artery calcification and cardiomegaly. Evidence for chronic pancreatitis, partially imaged on this exam. --There is no evidence of solid organ injury in the abdomen or pelvis. Acute right anterior rib fractures as above. There is a 3.7 x 4.7 cm infrarenal abdominal aortic aneurysm. Right-sided nephrolithiasis. Mild colonic diverticulosis without CT evidence of acute diverticulitis. There is evidence of chronic pancreatitis. Mild colonic diverticulosis without CT evidence of acute diverticulitis. --C T head:No acute intracranial abnormality. Atrophy and microvascular ischemic changes. --L Wrist X ray:Soft tissue edema with no radiographic evidence of acute fracture. Osteopenia and degenerative change as above. --R Wrist X ray: Soft tissue swelling with no fracture identified. Osteopenia and arthritic change as above. --Denies any significant pain Continue incentive spirometry PT/OT eval completed Pain is controlled Fall precuations Hypertensive urgency Blood pressure elevation at the time of admission likely situational secondary pain Blood pressure stable now Continue home medication Infrarenal abdominal aortic aneurysm Incidental finding on CAT scan Advised to follow-up as outpatient Acute kidney injury on CKD III Creatinine levels back to normal with IV fluids Monitor renal function Avoid nephrotoxic agents as able Hypokalemia Replete as needed Abnormal UA Less likely UTI Urine culture pending Denies dysuria, hematuria No signs of infection Hold antibiotics for now CAD S/P Angioplasty Moderate aortic stenosis Stable Continue home medication H/O Diastolic dysfunction No signs of volume overload Monitor volume status Hyperlipidemia on statin DM II Hb 1c of 6.14 October 2019 Hold home medications Continue insulin therapy while hospitalized Monitor BGs Polymyalgia Continue steroid therapy DVT Px: SCDs RE:Ecchymotic wrists secondary to fall Code Status Full code Disposition Refuses Home Health services Admission and Anticipated Discharge Date Admission Date: December 04, 2019 Subjective Patient is seen and examined at bedside Reports minimal right sided discomfort with movement/deep breathing Denies dyspnea, nausea, vomiting, abdominal pain, dizziness Prefers to be discharged home today Offers no other complaints Review of Systems Review of Systems: All systems reviewed & are unremarkable except as noted in HPI & below Physical Exam Physical Exam: Physical Exam: Vitals signs as noted above General Appearance:Moderately built and nourished, no apparent distress Head: normocephalic, +traumatic, Right supraorbital bruising/ecchymosis Eyes: normal inspection, EOMI Neck: supple, Trachea midline Respiratory/Chest: Normal breath sounds, CTA, No accessory muscle use Cardiovascular: S1, S2, + Systolic murmur Abdomen/GI:Soft, Non tender, Bowel sounds present Extremities/Musculoskelatal:normal inspection, no edema, B/L Hand Ecchymosis Neurologic/Psych:AAOX3, grossly no focal neurological deficits, +Hearing Impairment Skin: normal color, warm Results & Data Results & Data ([facility]) Vital Signs (Past 12 Hours) Vital Signs Temp Pulse Pulse Pulse Resp BP BP 12/05/19 15:11 36.7 C 71 18 144/79 H 12/05/19 13:19 36.6 C 61 18 124/73 135/76 12/05/19 11:34 36.6 C 61 18 124/73 12/05/19 08:11 36.7 C 70 16 139/86 12/05/19 07:19 63 12/05/19 04:00 37.2 C 87 18 161/90 H Pulse Ox 12/05/19 15:11 94 12/05/19 13:19 95 12/05/19 11:34 95 12/05/19 08:11 95 12/05/19 07:19 12/05/19 04:00 97 Laboratory Results Short CBC 12/04/19 12/05/19 Range/Units 20:08 06:57 WBC 7.35 5.44 (4.8-10.8) K/uL Hgb 12.1 L 11.1 L (14.0-18.0) g/dL Hct 37.7 L 33.9 L (42-52) % Plt Count 182 153 (130-400) K/uL BMP 12/04/19 12/05/19 20:08 06:57 Sodium 140 142 Potassium 3.6 3.4 L Chloride 105 110 H Carbon Dioxide 25 25 BUN 17 14 Creatinine 1.42 H 1.18 Glucose 109 H 104 H Calcium 9.9 9.5 Cardiac Enzymes 12/04/19 Range/Units 20:08 Total Creatine Kinase 64 (39-308) U/L Troponin I 0.019 (0-0.045) ng/ml Liver Function 12/04/19 Range/Units 20:08 Total Bilirubin 1.1 H (0.2-1) mg/dl AST 23 (15-37) U/L ALT 28 (12-78) U/L Alkaline Phosphatase 71 (45-117) U/L Albumin 3.3 L (3.4-5.0) gm/dl Urine 12/04/19 Range/Units 21:35 Urine Color Yellow Urine Appearance Clear (Clear) Urine pH 5.5 (4.5-7.5) Ur Specific [place] 1.016 (1.000-1.030) Urine Protein Negative (Negative) Urine Glucose (UA) Negative (Negative)
--- NOTE | 2019-12-05 16:42 | Discharge Summary ---
Date of Service December 05, 2019 Admission HPI Per Admitting Provider History obtained from patient, family, and records. Medical history significant for CAD status post angioplasty, diastolic dysfunction as per records, moderate aortic stenosis (TTE 2018), hypertension, hyperlipidemia, AAA, DM 2 diet-controlled, CRI (baseline creatinine 1.3), chronic anemia (baseline hemoglobin 11-12), PMR on chronic steroid therapy, past tobacco abuse. Last confinement December 2018 for acute pancreatitis attributed to biliary sludge. Patient pulled down by his Labrador dog to be last night causing patient to hit the concrete ground chest down. No head trauma or LOC. Pleuritic right-sided chest pain without cough symptoms. Bruising on both wrists. Poor appetite level daily. No abdominal pain, diarrhea, dysuria symptoms. Patient brought to the ER by son for evaluation. Low-grade fever noted at the ER. Patient given ceftriaxone at the ER. Medical History as above Surgical History : Cataract surgeries, appendectomy Family History : Stroke, heart disease, macular degeneration Personal/Social history : Past tobacco abuse, occasional EtOH intake, retired [employer] employee, lives with Admission Exam Per Admitting Provider Physical Exam Physical Exam: GENERAL: Comfortable, slightly hard of hearing, no respiratory distress SKIN: Pallor , warm HEENT: Pale palpebral conjunctivae, no ptosis, dry buccal mucosa NECK : Supple, no tenderness CHEST : CTA, right anterior chest wall tenderness HEART : RRR, systolic murmur ABDOMEN: Some distention, nontender EXTREMITIES : No LE swelling/tenderness, bruising/ecchymoses on both wrists/hands NEUROLOGIC : Coherent, no facial asymmetry, mild hearing impairment, gait and stance not assessed Principal Diagnosis Hypertensive urgency--likely situational Acute kidney injury Traumatic mechanical fall Right rib fracture Hypokalemia Abnormal urinalysis Abdominal aortic aneurysm--Incidental Finding Discharge Data Allergies Allergy/AdvReac Type Severity Reaction Status Date / Time No Known Drug Allergies Allergy Verified 09/15/19 15:19 Consultations 12/04/19 23:34 ED Decision to Admit Stat 12/05/19 01:18 Consult Case Management - Discharge Planning Routine Procedures Performed --CT chest: Age indeterminate nondisplaced fracture of the anterior right seventh rib. No pneumothorax. No evidence for traumatic injury to the thoracic aorta. Moderate coronary artery calcification and cardiomegaly. Evidence for chronic pancreatitis, partially imaged on this exam. -- CT ABD:There is no evidence of solid organ injury in the abdomen or pelvis. Acute right anterior rib fractures as above. There is a 3.7 x 4.7 cm infrarenal abdominal aortic aneurysm. Right-sided nephrolithiasis. Mild colonic diverticulosis without CT evidence of acute diverticulitis. There is evidence of chronic pancreatitis. Mild colonic diverticulosis without CT evidence of acute diverticulitis. --CT head:No acute intracranial abnormality. Atrophy and microvascular ischemic changes. --L Wrist X ray:Soft tissue edema with no radiographic evidence of acute fracture. Osteopenia and degenerative change as above. --R Wrist X ray: Soft tissue swelling with no fracture identified. Osteopenia and arthritic change as above. Ordered Studies 12/04/19 19:06 CT abd pelvis IV con only Urgent CT chest w con Urgent CT head/brain wo con Urgent Hospital Course (1) Asymptomatic hypertensive urgency: Traumatic mechanical fall Nondisplaced anterior right seventh rib fracture --CT chest: Age indeterminate nondisplaced fracture of the anterior right seventh rib. No pneumothorax. No evidence for traumatic injury to the thoracic aorta. Moderate coronary artery calcification and cardiomegaly. Evidence for chronic pancreatitis, partially imaged on this exam. --There is no evidence of solid organ injury in the abdomen or pelvis. Acute right anterior rib fractures as above. There is a 3.7 x 4.7 cm infrarenal abdominal aortic aneurysm. Right-sided nephrolithiasis. Mild colonic diverticulosis without CT evidence of acute diverticulitis. There is evidence of chronic pancreatitis. Mild colonic diverticulosis without CT evidence of acute diverticulitis. --C T head:No acute intracranial abnormality. Atrophy and microvascular ischemic changes. --L Wrist X ray:Soft tissue edema with no radiographic evidence of acute fr acture. Osteopenia and degenerative change as above. --R Wrist X ray: Soft tissue swelling with no fracture identified. Osteopenia and arthritic change as above. --Denies any significant pain Continue incentive spirometry PT/OT eval completed Pain is controlled Fall precuations Hypertensive urgency Blood pressure elevation at the time of admission likely situational secondary pain Blood pressure stable now Continue home medication Infrarenal abdominal aortic aneurysm Incidental finding on CAT scan Advised to follow-up as outpatient Acute kidney injury on CKD III Creatinine levels back to normal with IV fluids Monitor renal function Avoid nephrotoxic agents as able Hypokalemia Replete as needed Abnormal UA Less likely UTI Urine culture pending Denies dysuria, hematuria No signs of infection Hold antibiotics for now CAD S/P Angioplasty Moderate aortic stenosis Stable Continue home medication H/O Diastolic dysfunction No signs of volume overload Monitor volume status Hyperlipidemia on statin DM II Hb 1c of 6.14 October 2019 Hold home medications Continue insulin therapy while hospitalized Monitor BGs Polymyalgia Continue steroid therapy DVT Px: SCDs RE:Ecchymotic wrists secondary to fall Code Status Full code Disposition Refuses Home Health services Total Time Total Time Spent Total Time Spent (In Minutes): 28 minutes Discharge Plan Discharge Items Patient Disposition: Home - Self-Care Reason For Visit: HTN URGENCY Discharge Diagnosis: Hypertensive urgency--likely situational Acute kidney injury Traumatic mechanical fall Right rib fracture Hypokalemia Abnormal urinalysis Abdominal aortic aneurysm--Incidental Finding Activity: Per Instructions section Exercise/Sports: Gradually increase as tolerated Non-emergency contact: Primary Care Provider Call non-emergency contact if: you have any medication questions, your symptoms worsen, your pain is not controlled, your pain is worsening, your pain is unusual for you, your pain is concerning for you and you have a fever Follow-up/Referrals: Noel Thapa MD [Primary Care Provider] - Diet: Carb Consistent or DM2 and Heart Healthy Addtl Attending Provider Instructions: Follow-up with Dr. Chapin for primary care on December 08, 2019 at 10 AM Continue using incentive spirometry as recommended for rib pain Your urine culture is pending at the time of discharge. Follow-up with your physician for results. You were noted to have 3.7 x 4.7 cm infrarenal abdominal aortic aneurysm--incidental finding on CT scan. Follow-up with your physician for further evaluation if you would like to pursue. Avoid taking [id number] NSAIDs (Ibuprofen, Aleve, naproxen, Advil) as they can worsen your renal function. Can use paracetamol (Tylenol) as needed for pain. Seek immediate medical attention if your symptoms reoccur or worsen Pending Studies at Discharge: Yes Studies:: Urine Culture Stand-Alone Forms: My [facility] Novel Medications and DC Order Prescriptions: New lidocaine 5 % Adhesive Patch,Medicated 1 patch transdermal HS Qty: 7 RF: 0 Continued aspirin 81 mg tablet,delayed release (DR/EC) 81 mg PO HS RF: 0 multivitamin tablet 1 tab PO QAM RF: 0 nitroglycerin 0.4 mg tablet, sublingual 0.4 mg SL Q5M PRN (Reason: Chest Pain) RF: 0 prednisone 5 mg tablet 5 mg PO QAM RF: 0 prednisone 2.5 mg tablet 2.5 mg PO QAM RF: 0 metformin 500 mg tablet extended release 24 hr 500 mg PO QAM RF: 0 cholecalciferol (vitamin D3) 1,000 unit Capsule 1,000 unit PO QAM RF: 0 Systane (PF) 0.4-0.3 % Dropperette 1 drp OPB BID PRN (Reason: Dry Eyes) RF: 0 omega 7-vya-gnv-fish oil [Fish Oil] 1,000 mg (120 mg-180 mg) Capsule 1 cap PO BID RF: 0 lutein 20 mg Tablet 20 mg PO QAM RF: 0 metoprolol succinate 25 mg tablet extended release 24 hr 25 mg PO QAM RF: 0 polyethylene glycol 3350 [Miralax] 17 gram powder in packet 17 g PO DAILY PRN (Reason: Constipation) RF: 0 atorvastatin 10 mg tablet 10 mg PO HS RF: 0 amlodipine 5 mg tablet 5 mg PO QAM RF: 0 Discharge Orders: Discharge Order (Routine); Ordered 12/05/19 Ordered By: Jack Ruggiero Admission Data Admit Date/Time: 12/05/19 15:30 Attending Provider: Jack Ruggiero Admit Provider: Joseph Gentile Primary Care Provider: Noel Thapa Other Providers: Joseph Gentile Other Interventions: Discharge Summary Assessment (RN) Last Done: 12/05/19 13:19
[2019-12-05] MEDS ORDERED: ATORVASTATIN 10 MG TAB PO SCH (21:00)
[2019-12-05] MEDS ORDERED: ASPIRIN 81 MG ECTAB PO SCH (21:00)
[2019-12-05] MEDS ORDERED: LIDOCAINE 5% 1 PATCH TD SCH (21:00)
--- NOTE | 2019-12-06 05:44 | Electrocardiogram Report ---
Test Reason : Blood Pressure : / mmHG Vent. Rate : 070 BPM Atrial Rate : 070 BPM P-R Int : 186 ms QRS Dur : 084 ms QT Int : 380 ms P-R-T Axes : 000 003 012 degrees QTc Int : 410 ms Unusual P axis, possible ectopic atrial rhythm with occasional Premature ventricular complexes Otherwise normal ECG When compared with ECG of 30-DEC-2018 10:47, Premature ventricular complexes are now Present NH interval has decreased Possible Ectopic atrial rhythm is now Present Confirmed by Bar Navarrete ([id number]) on 12/06/2019 5:44:17 AM Referred By: REFERRED SELF Confirmed By:Bar Navarrete
== END 2019-12-05 16:54 | disposition home or self-care (01) ==
LOC: 2N 18:04 → ED 18:04 → 2N 12-05 00:45
DX: Z11.59 Encounter for screening for other viral diseases; M35.3 Polymyalgia rheumatica; Z79.899 Other long term (current) drug therapy; S60.212A Contusion of left wrist, initial encounter; E87.6 Hypokalemia; I35.0 Nonrheumatic aortic (valve) stenosis; Z98.61 Coronary angioplasty status; I25.10 Atherosclerotic heart disease of native coronary artery without angina pectoris; I12.9 Hypertensive chronic kidney disease with stage 1 through stage 4 chronic kidney disease, or unspecified chronic kidney disease; S22.31XA Fracture of one rib, right side, initial encounter for closed fracture; I16.0 Hypertensive urgency; E78.5 Hyperlipidemia, unspecified; S60.211A Contusion of right wrist, initial encounter; Z79.82 Long term (current) use of aspirin; N18.3 Chronic kidney disease, stage 3 (moderate); S61.411A Laceration without foreign body of right hand, initial encounter; I71.4 Abdominal aortic aneurysm, without rupture; Z79.52 Long term (current) use of systemic steroids; N17.9 Acute kidney failure, unspecified; Z87.891 Personal history of nicotine dependence; W54.8XXA Other contact with dog, initial encounter; D63.1 Anemia in chronic kidney disease; Z79.84 Long term (current) use of oral hypoglycemic drugs; E11.9 Type 2 diabetes mellitus without complications